=== PATIENT | female | born 1980 | race Caucasian/White ===

== ENCOUNTER 2021-05-17 08:14 | Outpatient (REF) | payer OTHER, SELFPAY ==
[2021-05-17 10:43] LABS: Hematocrit 41.8 % (37-47); Hemoglobin 13.6 g/dl (12.0-16.0); Mean Corpuscular HGB Conc 32.5 g/dl (31.0-35.0); Mean Corpuscular Volume 86.2 fL (80-98); Mean Platelet Volume 11.1 fL (9.4-12.3); Platelet Count 304 X10*3/uL (160-400); Red Blood Count 4.85 X10*6/uL (4.20-5.50); Red Cell Distribution Width 13.3 % (11.0-16.0); White Blood Count 5.7 X10*3/uL (4.8-10.8)
[2021-05-17 10:50] LABS: Appearance Urine CLEAR; Color Urine YELLOW; Glucose Urine UA NEG (NEG); Leukocyte Esterase Urine NEG (NEG); Nitrite Urine NEG (NEG); Specific Gravity - Urine 1.015 (1.005-1.025); Urine Blood 1+ (NEG); Urine Ketones NEG (NEG); Urine Protein NEG (NEG-TRACE)
[2021-05-17 11:00] LABS: Bacteria Urine 2+ /LPF; Squamous Epithelial Cell Urine 3+ /LPF; Urine Talc Crystals TRACE /LPF; WBC Urine 0-2 /HPF (0-4)
[2021-05-17 11:14] LABS: Alanine Aminotransferase 17 U/L (0-31); Albumin Level 4.3 g/dL (3.5-5.0); Alkaline Phosphatase 82 U/L (39-117); Anion Gap 13 (12-20); Aspartate Amino Transferase 24 U/L (5-31); Bilirubin Total 0.4 mg/dL (0.0-1.0); Blood Urea Nitrogen 11 mg/dL (9-16); Calcium 9.5 mg/dL (8.4-10.2); Carbon Dioxide 28 mmol/L (22-29); Chloride 103 mmol/L (96-108); Cholesterol 240 mg/dL; Estimated Glomerular Filt Rate > 60; Glucose Fasting 86 mg/dL (60-99); HDL Cholesterol 78 mg/dL; LDL Cholesterol Calculated 152 mg/dl; Potassium 4.8 mmol/L (3.3-5.1); Sodium 139 mmol/L (135-145); Total Protein 7.5 g/dL (6.5-8.0); Triglycerides 52 mg/dL
[2021-05-17 11:28] LABS: Vitamin D 25-OH Total 29.5 ng/mL (>30)
== END 2021-05-17 08:15 | disposition home or self-care (01) ==
LOC: HO.10HDL 08:14
PROVIDERS: Visit Provider Internal Medicine
DX: Z13.89 Encounter for screening for other disorder (principal)
CPT/HCPCS: 36415; 80053; 80061; 81001; 82306; 85027

== ENCOUNTER 2021-05-29 07:24 | Outpatient (REF) | payer OTHER, SELFPAY ==
--- NOTE | ~2021-05-29 | MR_ITS ---
EXAMINATION: MR ANGIOGRAPHY HEAD CLINICAL INFORMATION: Cerebral aneurysm. Follow-up COMPARISON: MRA of the head 05/04/2015. CTA of the head 11/24/2009. TECHNIQUE: 3D time of flight MR angiography of the intracranial vasculature was obtained. Reformatted images were generated at the technologist workstation and source images were reviewed along with rotating MIPs. FINDINGS: In the anterior circulation, the distal internal carotid arteries within the neck appear normal. The study redemonstrates a 2.5 mm aneurysm off the medial aspect of the left anterior cerebral artery at the A1/A2 junction. The other intracranial internal carotid arteries and their bifurcations appear normal. The bilateral middle and right anterior cerebral arteries demonstrate normal caliber with no evidence of focal stenosis, aneurysm or vascular malformation. In the posterior circulation, the right vertebral artery is dominant. The vertebral arteries intradurally have normal caliber. The basilar artery appears normal. The posterior cerebral arteries have normal caliber. MR/MR angio head wo con IMPRESSION: 1. Stable 2.5 mm aneurysm off the medial aspect of the left anterior cerebral artery. No new aneurysms are demonstrated.
== END 2021-05-29 07:25 | disposition home or self-care (01) ==
LOC: HO.MRI 07:24
PROVIDERS: PCP Internal Medicine; Visit Provider Internal Medicine
DX: I67.1 Cerebral aneurysm, nonruptured (principal)
CPT/HCPCS: 70544

== ENCOUNTER 2021-12-19 07:31 | Outpatient (REF) | payer OTHER, SELFPAY ==
[2021-12-19 08:04] LABS: COVID-19 Test Negative (Negative)
== END 2021-12-19 07:32 | disposition home or self-care (01) ==
LOC: HO.LAB 07:31
PROVIDERS: Visit Provider Internal Medicine
DX: Z20.822 Contact with and (suspected) exposure to COVID-19 (principal)
CPT/HCPCS: 87635; C9803

== ENCOUNTER 2022-01-11 10:36 | Outpatient (REF) | payer OTHER, SELFPAY ==
[2022-01-11 11:07] LABS: COVID-19 Test Negative (Negative)
== END 2022-01-11 10:37 | disposition home or self-care (01) ==
LOC: HO.LAB 10:36
PROVIDERS: Visit Provider Internal Medicine
DX: Z20.822 Contact with and (suspected) exposure to COVID-19 (principal)
CPT/HCPCS: 87635; C9803

== ENCOUNTER 2022-01-22 07:33 | Outpatient (REF) | payer OTHER, SELFPAY ==
[2022-01-22 08:06] LABS: COVID-19 Test Negative (Negative); IDNOW Serial# 08D9AD1C
== END 2022-01-22 07:34 | disposition home or self-care (01) ==
LOC: HO.LAB 07:33
PROVIDERS: Visit Provider Internal Medicine
DX: Z20.822 Contact with and (suspected) exposure to COVID-19 (principal)
CPT/HCPCS: 87635; C9803

== ENCOUNTER 2022-04-13 07:25 | Outpatient (REF) | payer OTHER, SELFPAY ==
[2022-04-13 07:54] LABS: COVID-19 Test Negative (Negative)
== END 2022-04-13 07:26 | disposition home or self-care (01) ==
LOC: HO.LAB 07:25
PROVIDERS: Visit Provider Internal Medicine
DX: Z20.822 Contact with and (suspected) exposure to COVID-19 (principal)
CPT/HCPCS: 87635; C9803

== ENCOUNTER 2022-05-29 08:34 | Outpatient (REF) | payer OTHER, SELFPAY ==
[2022-05-29 10:49] LABS: MANUAL DIFF FLAG NO
[2022-05-29 10:54] LABS: Basophils Absolute Auto 0.1 X10*3/uL (0.0-0.2); Basophils Percent Auto 1.3 % (0-2); Eosinophils Absolute Auto 0.2 X10*3/uL (0.0-0.4); Eosinophils Percent Auto 3.4 % (0-4); Hematocrit 40.7 % (37.0-47.0); Hemoglobin 13.1 g/dl (12.0-16.0); Imm Gran Abs Auto 0.01 X10*3/uL (0.00-0.03); Imm Gran Pct Auto 0.2 % (0.0-0.4); Lymphocytes Absolute Auto 2.6 X10*3/uL (1.2-4.9); Lymphocytes Percent Auto 48.5 % (20-40); Mean Corpuscular HGB Conc 32.2 g/dl (31.0-35.0); Mean Corpuscular Hemoglobin 28.1 pg (27.0-33.0); Mean Corpuscular Volume 87.2 fL (80.0-98.0); Mean Platelet Volume 9.9 fL (9.4-12.3); Monocytes Absolute Auto 0.4 X10*3/uL (0.1-1.2); Monocytes Percent Auto 7.5 % (2-11); Neutrophils Absolute Auto 2.1 x10*3/uL (2.0-8.3); Neutrophils Percent Auto 39.1 % (45-73); Platelet Count 304 X10*3/uL (160-400); Red Blood Count 4.67 X10*6/uL (4.20-5.50); Red Cell Distribution Width 13.1 % (11.0-16.0); White Blood Count 5.3 X10*3/uL (4.8-10.8)
[2022-05-29 11:09] LABS: Alanine Aminotransferase 26 U/L (0-31); Albumin Level 4.3 g/dL (3.5-5.0); Alkaline Phosphatase 77 U/L (39-117); Anion Gap 15 (12-20); Aspartate Amino Transferase 33 U/L (5-31); Bilirubin Total 0.5 mg/dL (0.0-1.0); Blood Urea Nitrogen 9 mg/dL (9-16); Carbon Dioxide 27 mmol/L (22-29); Chloride 100 mmol/L (96-108); Cholesterol 188 mg/dL; Estimated Glomerular Filt Rate > 60; Glucose Fasting 90 mg/dL (60-99); HDL Cholesterol 78 mg/dL; LDL Cholesterol Calculated 103 mg/dl; Potassium 4.9 mmol/L (3.3-5.1); Sodium 137 mmol/L (135-145); Total Protein 7.4 g/dL (6.5-8.0); Triglycerides 38 mg/dL
[2022-05-29 11:29] LABS: Free T4 (Free Thyroxine) 0.97 ng/dL (0.71-1.85); Thyroid Stimulating Hormone 2.07 uIU/mL (0.32-4.0)
== END 2022-05-29 08:35 | disposition home or self-care (01) ==
LOC: HO.10HDL 08:34
PROVIDERS: Visit Provider Internal Medicine
DX: Z00.00 Encounter for general adult medical examination without abnormal findings (principal)
CPT/HCPCS: 36415; 80053; 80061; 83735; 84439; 84443; 85025

== ENCOUNTER → 2022-05-30 09:35 | Outpatient (REF) | payer OTHER, SELFPAY ==
--- NOTE | 2022-05-30 09:32 | CA_ITS ---
Transthoracic Echocardiogram Patient (Last, First, Middle): Alanna Johns, Gender: Female Date of : 1980 Age: 42 Procedure Date: 05/30/2022 Procedure Type: Transthoracic Echocardiogram Location: OP Height: 162.56 cm Weight: 63.5 kg BSA: 1.68 m2 Heart Rate: 75 bpm BP: 130 / 80 mmHg Marine Electrician Helper: SUNITHA Referring MD: Braydon Cortes MD Vp Compliance: Jacob Balderrama MD Symptoms: PALPITATIONS Study Quality: Fair ECG Rhythm: Sinus Conclusions: - 1. Normal LV systolic and diastolic function 2. Normal cardiac valvular Doppler next 3. Normal RV systolic pressure 4. No pericardial effusion Findings Left Ventricle Normal left ventricular size, thickness, and systolic function. The visually estimated ejection fraction is between 55-60%. Spectral Doppler is indicative of a normal filling pattern. Right Ventricle Normal right ventricular cavity size and systolic function. Atria The left atrium is normal in size. Interatrial shunt cannot be excluded. The right atrium is normal in size. Aortic Valve The aortic valve structure and function is likely normal. There is no aortic valve stenosis. There is no aortic valve regurgitation. Mitral Valve Normal mitral valve structure and function. There is trace mitral valve regurgitation. There is no mitral valve stenosis. Pulmonic Valve The pulmonic valve was not well visualized. Tricuspid Valve Likely normal tricuspid valve structure and function. There is trace tricuspid valve regurgitation. The right ventricular systolic pressure is normal. The right ventricular systolic pressure is 13 mmHg. Normal right atrial pressure. There is no evidence of pulmonary hypertension. Great Vessels All visible segments of the aorta are normal in size. The pulmonary artery was not well visualized. Venous The inferior vena cava is normal in size and collapses greater than 50% with inspiration. Pericardium/Pleural There is no evidence of pericardial effusion. Prior Study Comparison No prior study available for comparison. Measurements 2D Linear Measurements IVSd: 0.97 0.6-0.9/0.6-1.0 cm LVIDd: 4.10 3.9-5.3/4.2-5.9 cm LVIDd Index: 2.44 2.4-3.2/2.2-3.1 cm/m2 LVIDs: 2.91 2.0-3.6 cm LVPWd: 1.07 0.7-1.1 cm LA Diam: 3.10 2.7-3.8/3.0-4.0 cm LAIDs Index: 1.85 1.5-2.3 cm/m2 LV Mass: 169.06 67-162/88-224 g LV Mass Index: 100.63 43-95/49-115 g/m2 LVOT Diam: 2.10 3.0+(-)1.3 cm 2D Systolic Function EF 4C: 53.20 >55% EF 2C: 52.70 >55% Mitral Valve MV Pk E: 0.79 MV PK A: 0.70 MV Decel Time: 245.00 E/A: 1.10 E'Lateral: 9.25 E'Medial: 6.64 E/E' Med: 11.80 E/E' Lat: 8.50 PHT: 72.00 MVA PHT: 3.06 Decel [place]: 3.20 Aortic Valve AoV Pk Jamel: 1.19 AoV Mn Jamel: 0.86 AoV VTI: 0.25 AoV Pk Grad: 6.00 Aov Mn Grad: 3.00 ELOISE Cont.VTI: 2.48 LVOT LVOT Pk Jamel: 0.79 LVOT Mn Jamel: 0.58 LVOT VTI: 0.18 LVOT Pk Grad: 3.00 LVOT Mn Grad: 2.00 LVOT Diam: 2.10 LVOT Area: 3.46 Diastolic Function MV Pk E: 0.79 MV Pk A: 0.70 E/A: 1.10 E'Medial: 6.64 E/E' Med: 11.80 E' Laterial: 9.25 E/E' Lat: 8.50 Right Ventricle TAPSE (mm): 18.40 TVS' Jamel: 12.60 Tricuspid Valve TR Pk Jamel: 1.57 TR Pk Grad: 10.00 RA Press: 3.00 RVSP: 13.00 Great Vessels Aorta Sinus of Valsalva: 2.70 2.0-3.5 cm Ao Asc: 2.80 2.1-3.4 cm Pulmonary Valve PV Pk Jamel: 0.88 Peak PV Grad: 3.00 Updated in Other Vendor System with Status of Final Jacob Balderrama MD electronically signed on 05/30/2022 12:18:52 PM with status of Final
--- NOTE | 2022-05-30 09:34 | HM_ITS ---
* Total monitoring time 3 days. * Underlying rhythm is sinus. Average rate 82/Min. Range 52 to 126/Min. * Very rare PVCs and PACs. * No sustained arrhythmias. * No patient diary. MTDD
== END ==
LOC: HO.CARD 09:35
PROVIDERS: PCP Internal Medicine; Visit Provider Internal Medicine
DX: R00.2 Palpitations (principal)
CPT/HCPCS: 93242; 93306

== ENCOUNTER 2022-06-15 07:50 | Outpatient (REF) | payer OTHER, SELFPAY ==
[2022-06-15 08:32] LABS: COVID-19 Test Negative (Negative)
== END 2022-06-15 07:51 | disposition home or self-care (01) ==
LOC: HO.LAB 07:50
PROVIDERS: Visit Provider Internal Medicine
DX: Z20.822 Contact with and (suspected) exposure to COVID-19 (principal)
CPT/HCPCS: 87635; C9803

== ENCOUNTER 2022-06-22 08:05 | Outpatient (REF) | payer OTHER, SELFPAY ==
[2022-06-25 21:32] LABS: Thyroid Peroxidase Antibodies 1 IU/mL (<9)
== END 2022-06-22 08:06 | disposition home or self-care (01) ==
LOC: HO.10HDL 08:05
PROVIDERS: Visit Provider Family Medicine
DX: R00.2 Palpitations (principal)
CPT/HCPCS: 36415; 86140; 86376

== ENCOUNTER → 2022-06-26 07:53 | Outpatient (REF) | payer OTHER, SELFPAY ==
--- NOTE | 2022-06-26 07:57 | CA_ITS ---
Acquisition Time: 2022-06-26 08:09:41 Total Exercise Time: 00:10:01 Test Indications: Palpitations Medications: ATORVASTATIN Protocol: NICHO Max HR: 155 BPM 87% of Pred: 177 BPM Max BP: 144/082 mmHG Max Work Load: 11.7 METS PT EXERCISEED ON STD NICHO PROTOCOL FOR 10 MIN INTO STAGE 4. MAX HR 155-87%MAX. OCC PVC'S. NO ISCHEMIC CHANGES. NO C/O CP OR SOB. OCC PALP FELT. NO SUSTAINED ARRHYTHMIAS. CLINICALLYAND ELEC NEG TEST Referred By: Braydon Shaw Overread By: BERTA SHAW MD
== END ==
LOC: HO.CARD 07:53
PROVIDERS: Visit Provider Internal Medicine
DX: R00.2 Palpitations (principal)
CPT/HCPCS: 93017

== ENCOUNTER 2022-09-06 07:50 | Outpatient (REF) | payer OTHER, SELFPAY ==
[2022-09-06 08:25] LABS: COVID-19 Test Negative (Negative); IDNOW Serial# 16C4AD1C
== END 2022-09-06 07:51 | disposition home or self-care (01) ==
LOC: HO.LAB 07:50
PROVIDERS: Visit Provider Internal Medicine
DX: Z20.822 Contact with and (suspected) exposure to COVID-19 (principal)
CPT/HCPCS: 87635; C9803

== ENCOUNTER 2022-09-13 07:29 | Outpatient (REF) | payer OTHER, SELFPAY ==
[2022-09-13 08:18] LABS: COVID-19 Test Negative (Negative); IDNOW Serial# 9DB6401D
== END 2022-09-13 07:30 | disposition home or self-care (01) ==
LOC: HO.LAB 07:29
PROVIDERS: Visit Provider Internal Medicine
DX: Z20.822 Contact with and (suspected) exposure to COVID-19 (principal)
CPT/HCPCS: 87635; C9803

== ENCOUNTER 2022-09-17 07:31 | Outpatient (REF) | payer OTHER, SELFPAY ==
[2022-09-17 08:12] LABS: COVID-19 Test Negative (Negative); IDNOW Serial# 16C4AD1C
== END 2022-09-17 07:32 | disposition home or self-care (01) ==
LOC: HO.LAB 07:31
PROVIDERS: Visit Provider Internal Medicine
DX: Z20.822 Contact with and (suspected) exposure to COVID-19 (principal)
CPT/HCPCS: 87635; C9803

== ENCOUNTER 2022-10-04 08:14 | Outpatient (REF) | payer OTHER, SELFPAY ==
[2022-10-04 09:05] LABS: COVID-19 Test Negative (Negative); IDNOW Serial# BCCEAD1C
== END 2022-10-04 08:15 | disposition home or self-care (01) ==
LOC: HO.LAB 08:14
PROVIDERS: Visit Provider Internal Medicine
DX: Z20.822 Contact with and (suspected) exposure to COVID-19 (principal)
CPT/HCPCS: 87635; C9803

== ENCOUNTER 2022-10-19 07:51 | Outpatient (REF) | payer OTHER, SELFPAY ==
[2022-10-19 08:26] LABS: COVID-19 Test Negative (Negative); IDNOW Serial# 16C4AD1C
== END 2022-10-19 07:52 | disposition home or self-care (01) ==
LOC: HO.LAB 07:51
PROVIDERS: Visit Provider Internal Medicine
DX: Z20.822 Contact with and (suspected) exposure to COVID-19 (principal)
CPT/HCPCS: 87635; C9803

== ENCOUNTER 2023-01-11 07:09 | Day surgery (SDC) | payer OTHER, SELFPAY ==
--- NOTE | 2023-01-10 09:36 | HO.ANESPROP2 ---
Documented by User: Tri Barbosa NP 01/10/23 10:05 HPI - Anesthesia Eval Consult details Narrative: 42yo F for Colonoscopy [facility] Past Medical History Medical History (Updated 01/10/23 @ 09:37 by Tri Barbosa NP) Anxiety Cerebral aneurysm GERD (gastroesophageal reflux disease) HLD (hyperlipidemia) Insomnia Palpitations Surgical History Surgical History (Updated 01/10/23 @ 09:37 by Tri Barbosa NP) H/O adenoidectomy (~1981) Social History Social History Advance Directives: No Advance Directives Information Provided: Yes Meds Allergies Allergy/AdvReac Type Severity Reaction Status Date / Time kiwi Allergy Unknown Unknown Verified 01/10/23 09:38 pineapple Allergy Unknown Unknown Verified 01/10/23 09:38 Home Medications Medication Instructions Recorded Confirmed Last Taken Type atorvastatin 10 mg tablet 10 mg PO BEDTIME 01/10/23 Unknown History Exam Exam Date and Time: January 10, 2023 0936 Narrative Narrative: ECHO 05/2022 Conclusions: - 1.? Normal LV systolic and diastolic function? 2.? Normal cardiac valvular Doppler next 3.? Normal RV systolic? pressure ? 4.? No pericardial effusion? Exercise Stress 06/2022 Protocol: NICHO ? Max HR: 155 BPM? 87% of? Pred: 177 BPM Max BP: 144/082 mmHG Max Work Load: 11.7 METS ? PT EXERCISEED ON STD NICHO PROTOCOL FOR 10 MIN INTO STAGE 4. MAX HR 155-87%MAX. ?OCC PVC'S. NO ISCHEMIC CHANGES. NO C/O CP OR SOB. OCC PALP FELT. NO SUSTAINED ?ARRHYTHMIAS. CLINICALLYAND ELEC NEG TEST Holter 05/2022 Total monitoring time 3 days. Underlying rhythm is sinus.? Average rate 82/Min.? Range 52 to 126/Min. Very rare PVCs and PACs. No sustained arrhythmias. No patient diary. Assessment and Plan Assessment Anesthesia Assessment: Chart Reviewed Documented by User: Ted Rivas MD 01/11/23 07:38 [facility] Past Medical History Medical History (Updated 01/10/23 @ 09:37 by Tri Barbosa NP) Anxiety Cerebral aneurysm GERD (gastroesophageal reflux disease) HLD (hyperlipidemia) Insomnia Palpitations Family History Family history of problems with anesthesia: No Surgical History Surgical History (Updated 01/10/23 @ 09:37 by Tri Barbosa NP) H/O adenoidectomy (~1981) History of Problems with Anesthesia: No Social History Social History Advance Directives: No Advance Directives Information Provided: Yes Meds Allergies Allergy/AdvReac Type Severity Reaction Status Date / Time kiwi Allergy Unknown Unknown Verified 01/10/23 09:38 pineapple Allergy Unknown Unknown Verified 01/10/23 09:38 Home Medications Medication Instructions Recorded Confirmed Last Taken Type atorvastatin 10 mg tablet 10 mg PO BEDTIME 01/10/23 Unknown History Exam Airway Mallampati Class: II TM Dist: >3cm Neck ROM: Full Heart: rrr Assessment and Plan Assessment Anesthesia Assessment: Anesthesia Plan Discussed Final Anesthetic Review Family History of Problems with Anesthesia: No History of Problems with Anesthesia: No NPO: Yes ASA Class: II Final Preanesthetic Review: No Changes in Pt Med Stat, Meds/Allgs Chart Reviewed, Consent Obtained/Reviewed and Anes Risks/Benef Reviewed Patient Risk: Low Procedure Risk: Low Anesthetic Plan Anesthetic Plan: MAC: and Agree w/ Assess. and Plan Disposition: Standard PACU
[2023-01-11 07:42] VITALS: BP 140/81; PULSE 100; RESP 18; TEMP 37.1; O2SAT 100; BMI 24.9
--- NOTE | 2023-01-11 08:19 | MHC.SHP ---
Pre-Procedural Eval Section A Date of Service: 01/11/23 Section B Chief Complaint: Hemorrhage of anus and rectum Details of Present Illness: see H&P Relevant Family History (Specify if Yes): No Relevant Social History: None Present Medications: see Short Stay Collaborative assessment Medical History: No relevant PMH History of Previous Operations: No relevant previous surgery Allergies: Allergies Allergy/AdvReac Type Severity Reaction Status Date / Time kiwi Allergy Unknown Unknown Verified 01/10/23 09:38 pineapple Allergy Unknown Unknown Verified 01/10/23 09:38 Review of Systems Sugical H&P ROS: Negative: Constitution, Cardiovascular, Respiratory, Neurological, Psychiatric, Hem-Onc, Allergic/Immunologic, Gastrointestinal, Genitourinary, Musculoskeletal, Integumentary, Endocrine and Eyes/Ears/Nose/Throat Exam Surgical H&P Exam: Normal: HEENT, Normal: Heart, Normal: Lungs, Normal: Extremities, Normal: Abdomen, Normal: Skin and Normal: Neurological Plan Diagnosis/Plan: Unchanged I have reviewed the history and physical and performed a pertinent physical examination on my patient. No changes have occurred unless specified. Time Spent With Patient Time: Total time managing care of this patient today ____ minutes.
[2023-01-11 08:34] LABS: UPreg QC Valid YES; Urine Pregnancy NEGATIVE (NEGATIVE)
[2023-01-11 08:50] VITALS: BP 118/75; PULSE 81; RESP 16; TEMP 36.7; O2SAT 99
--- NOTE | 2023-01-11 08:56 | P.BOP_ITS ---
Brief Operative Note Date of Service: 01/11/23 Pre-op diagnosis: rectal bleeding Post-op diagnosis: same Procedure: colonoscopy Surgeon: Denton Juan Anesthesia: MAC Was an Watch Repair Person used for this Procedure?: No Estimated blood loss (mL): 0 Pathology: none sent Condition: stable Disposition: PACU
[2023-01-11 09:05] VITALS: BP 130/76; PULSE 78; RESP 18; TEMP 36.4; O2SAT 100
--- NOTE | 2023-01-11 09:40 | OP_ITS ---
DATE OF SERVICE: 01/11/2023 SURGEON: Denton Juan MD INDICATIONS: Rectal bleeding. PREOPERATIVE DIAGNOSIS: POSTOPERATIVE DIAGNOSIS: PROCEDURE PERFORMED: Colonoscopy to the terminal ileum. ESTIMATED BLOOD LOSS: COMPLICATIONS: ANESTHESIA: Monitored anesthesia care. ASSISTANTS: SPECIMENS: DESCRIPTION OF PROCEDURE: The history and physical was performed. The risks and benefits of the procedure were explained to the patient. Informed consent was obtained. The patient was placed in the left lateral decubitus position. A digital rectal exam was performed and was found to be normal. The Olympus pediatric video colonoscope was introduced into the rectum and advanced to the cecum without difficulty. The cecum was identified by transillumination, palpation, and identification of ileocecal valve. Examination was performed. The scope was removed. She tolerated the procedure well and was returned to the recovery area in stable condition. FINDINGS: The terminal ileum was normal. Visualized colonic mucosa was normal. The quality of the prep was good. There were no polyps. There were small internal hemorrhoids on retroflexed examination. The mucosa appeared normal. IMPRESSION: Normal colonoscopy. RECOMMENDATION: 1. Follow up as needed. 2. Repeat colonoscopy for screening purposes is recommended in 10 years for average risk individuals. MD KALEY Orta/DENEEN / [phone]
== END 2023-01-11 09:30 | disposition home or self-care (01) ==
PROVIDERS: Nurse Practitioner; PCP Internal Medicine; Visit Provider Internal Medicine Gastroenterology
PROC: 0DJD8ZZ Inspection of Lower Intestinal Tract, Via Natural or Artificial Opening Endoscopic (ICD-10-PCS; CPT 45378; principal; 2023-01-11 08:20)
DX: K62.5 Hemorrhage of anus and rectum (principal)
CPT/HCPCS: 45378; 81025

== ENCOUNTER 2023-04-12 11:36 | Outpatient (REF) | payer OTHER, SELFPAY ==
--- NOTE | ~2023-04-12 | XR_ITS ---
EXAMINATION: XR HIP, RIGHT CLINICAL INFORMATION: Right hip pain COMPARISON: None available. TECHNIQUE: Two views of the right hip. FINDINGS: No fracture. Alignment is anatomic. Hip joint space is maintained. Soft tissues are unremarkable. XR/XR hip RT w PEL1V IMPRESSION: Normal right hip.
== END 2023-04-12 11:37 | disposition home or self-care (01) ==
LOC: HO.XRAY 11:36
PROVIDERS: PCP Internal Medicine; Visit Provider Internal Medicine
DX: M53.3 Sacrococcygeal disorders, not elsewhere classified (principal)
CPT/HCPCS: 73502

== ENCOUNTER 2024-02-13 07:43 | Outpatient (REF) | payer OTHER, SELFPAY ==
[2024-02-14 13:09] LABS: Lyme Abs Screen <0.90 index
== END 2024-02-13 07:44 | disposition home or self-care (01) ==
LOC: HO.10HDL 07:43
PROVIDERS: Visit Provider Internal Medicine
DX: T14.8XXA Other injury of unspecified body region, initial encounter (principal); W57.XXXA Bitten or stung by nonvenomous insect and other nonvenomous arthropods, initial encounter
CPT/HCPCS: 36415; 86617; 86618

== ENCOUNTER 2024-02-21 07:52 | Outpatient (REF) | payer OTHER, SELFPAY ==
[2024-02-21 10:46] LABS: MANUAL DIFF FLAG NO
[2024-02-21 10:51] LABS: Basophils Percent Auto 0.6 % (0-2); Eosinophils Absolute Auto 0.2 X10*3/uL (0.0-0.4); Eosinophils Percent Auto 2.6 % (0-4); Hematocrit 40.7 % (37.0-47.0); Hemoglobin 13.3 g/dl (12.0-16.0); Imm Gran Abs Auto 0.02 X10*3/uL (0.00-0.03); Imm Gran Pct Auto 0.3 % (0.0-0.4); Lymphocytes Absolute Auto 2.4 X10*3/uL (1.2-4.9); Lymphocytes Percent Auto 34.8 % (20-40); Mean Corpuscular HGB Conc 32.7 g/dl (31.0-35.0); Mean Corpuscular Hemoglobin 28.4 pg (27.0-33.0); Mean Platelet Volume 10.4 fL (9.4-12.3); Monocytes Absolute Auto 0.5 X10*3/uL (0.1-1.2); Monocytes Percent Auto 7.1 % (2-11); Neutrophils Absolute Auto 3.8 x10*3/uL (2.0-8.3); Neutrophils Percent Auto 54.6 % (45-73); Platelet Count 232 X10*3/uL (160-400); Red Blood Count 4.68 X10*6/uL (4.20-5.50); Red Cell Distribution Width 13.1 % (11.0-16.0)
[2024-02-21 11:19] LABS: Alanine Aminotransferase 21 U/L (0-31); Albumin Level 4.1 g/dL (3.5-5.0); Alkaline Phosphatase 72 U/L (39-117); Anion Gap 11 (12-20); Aspartate Amino Transferase 29 U/L (5-31); Bilirubin Total 0.4 mg/dL (0.0-1.0); Blood Urea Nitrogen 10 mg/dL (9-16); Calcium 9.2 mg/dL (8.4-10.2); Carbon Dioxide 30 mmol/L (22-29); Chloride 101 mmol/L (96-108); Cholesterol 170 mg/dL (<200); Estimated Glomerular Filt Rate > 60; Glucose Fasting 100 mg/dL (60-99); HDL Cholesterol 74 mg/dL (>40); LDL Cholesterol Calculated 86 mg/dL (<100); Potassium 4.7 mmol/L (3.3-5.1); Sodium 137 mmol/L (135-145); Total Protein 7.5 g/dL (6.5-8.0); Triglycerides 51 mg/dL (<150)
[2024-02-21 11:22] LABS: Vitamin D 25-OH Total 51.4 ng/mL (>30)
== END 2024-02-21 07:53 | disposition home or self-care (01) ==
LOC: HO.10HDL 07:52
PROVIDERS: Visit Provider Internal Medicine
DX: E78.00 Pure hypercholesterolemia, unspecified (principal); J31.0 Chronic rhinitis; M72.2 Plantar fascial fibromatosis
CPT/HCPCS: 36415; 80053; 80061; 82306; 85025

== ENCOUNTER 2024-06-02 09:09 | Outpatient (REF) | payer BC, SELFPAY ==
[2024-06-02 11:33] LABS: Alanine Aminotransferase 24 U/L (0-31); Albumin Level 4.4 g/dL (3.5-5.0); Alkaline Phosphatase 81 U/L (39-117); Aspartate Amino Transferase 29 U/L (5-31); Bilirubin Direct 0.1 mg/dL (0.0-0.5); Bilirubin Total 0.4 mg/dL (0.0-1.0); Total Protein 7.9 g/dL (6.5-8.0)
[2024-06-02 11:52] LABS: TSH reflex Free T4 1.31 uIU/mL (0.32-4.0)
[2024-06-03 14:23] LABS: Prolactin 4.2 ng/mL
== END 2024-06-02 09:10 | disposition home or self-care (01) ==
LOC: HO.10HDL 09:09
PROVIDERS: Visit Provider Nurse Practitioner Adult Health
DX: N92.6 Irregular menstruation, unspecified (principal); Z78.0 Asymptomatic menopausal state
CPT/HCPCS: 36415; 80076; 84146; 84443

== ENCOUNTER 2024-06-26 11:19 | Outpatient (REF) | payer BC, SELFPAY ==
[2024-06-26 13:39] LABS: Alanine Aminotransferase 24 U/L (0-31); Albumin Level 4.2 g/dL (3.5-5.0); Alkaline Phosphatase 64 U/L (39-117); Aspartate Amino Transferase 31 U/L (5-31); Bilirubin Direct 0.2 mg/dL (0.0-0.5); Bilirubin Total 0.4 mg/dL (0.0-1.0); Total Protein 7.4 g/dL (6.5-8.0)
== END 2024-06-26 11:20 | disposition home or self-care (01) ==
LOC: HO.10HDL 11:19
PROVIDERS: Visit Provider Nurse Practitioner Adult Health
DX: N95.1 Menopausal and female climacteric states (principal)
CPT/HCPCS: 36415; 80076

== ENCOUNTER 2024-08-06 08:20 | Outpatient (REF) | payer BC, SELFPAY ==
[2024-08-06 11:57] LABS: Alanine Aminotransferase 26 U/L (0-31); Albumin Level 4.3 g/dL (3.5-5.0); Alkaline Phosphatase 77 U/L (39-117); Aspartate Amino Transferase 33 U/L (5-31); Bilirubin Direct 0.2 mg/dL (0.0-0.5); Bilirubin Total 0.3 mg/dL (0.0-1.0); Total Protein 7.7 g/dL (6.5-8.0)
--- OUTSIDE RECORDS SUMMARY | 2024-08-11 23:55 | XMS_ITS | Continuity of Care Document ---
Author Organization [place] - [facility], [facility] Address [address] [place] [address] Care Team Providers Care Digital Manager Name Role Phone JUDY SHAW Primary Care Provider Assessment No assessment recorded. Plan of Treatment Reminders Order Date Submit Date Provider Last Modified By Organization Details Last Modified Time Details Appointments Hearing Test 2023 10:00A M Hearing Test Not available Not available Not available Establish ed 30 2023 10:30A M ALLEN FOSTER PA-C Not available Not available Not available Lab None recorded. Referral None recorded. Procedures None recorded. Surgeries nasophary ngoscopy, surgical, with dilation of eustachia n tube; bilateral (SURG) 2023 024 [email or web address] Not available 05/12/2024 13:20:19 Imaging None recorded. Medication Orders None recorded. Patient TargetsNo targets recorded. Patient InstructionsNo instructions recorded. Reason for Referral None Reported. Results Created Date Observation Date Name Description Value Unit Range Abnormal Flag Note LastModifiedBy Organization Detail LastModifiedTime 05/12/20 24 01/30/2024 audio gram No observ ation record ed. BARCODE Not Available 2023 08:37:48 Result Notes None recorded. Problems Name Problem SNOMED Code Status Onset Date Resolution Date Notes Provider Name and Address Organization Details Recorded Time Bilateral disorder of Eustachia n tubes 28001202773 63845 Active 2023 Other specified disorders of Eustachia n tube, bilateral ; Note: Date Diagnosed : 01/30/2024 4:52 PM (H69.83) Not Available [facility] 02:33:14 Conductiv e hearing loss 11733598 Active 2023 Conductiv e hearing loss, unilatera l, right ear, with unrestric bruna hearing on the contralat eral side; Note: Date Diagnosed : 01/30/2024 4:52 PM (H90.11) Not Available Pending sale to [facility] 4 02:33:20 Dysfuncti on of eustachia n tube 09667217 Active 2023 CARINA PANDA MD [address] [facility],[place] [address], [place], [address] , [facility] - [facility] 12:15:44 Conductiv e hearing loss 57950727 Active 2023 CARINA PANDA MD [address] [place] [address],[place] [address], [place], [address] , [facility] - [facility] 12:27:10 Problem Notes None recorded. Procedures Surgical History Date Name Laterality Status Provider Name and Address Organization Details Recorded Time 024 NASOPHARYNGOSCOPY, SURGICAL, WITH DILATION OF EUSTACHIAN TUBE; BILATERAL (SURG) completed Philip Killian [place] - [facility] 07/03/2024 10:31:55 024 Fiberoptic Nasopharyngoscopy completed CARINA PANDA MD [address] [place] [address],[place] [address], [place], [address], [facility] - [facility] 05/12/2024 12:27:25 Imaging Results None recorded. Procedure Notes None recorded. Medical Equipment None Reported. Allergies Allergen ID Allergen Name Allergen Category Reaction Reaction Severity Criticality Documentation Date Start Date Code Code System Note Provider Name and Address Organization Details Recorded Time 595333 kiwi fruit extract food other Not available Not available 04/03/2024 72674 01 RxNorm React ion: Unkno wn; Not Available Pending sale to [facility] 4 00:29:13 846605 pineapple allergeni c extract food,medi cation other Not available Not available 04/03/2024 37891 5 RxNorm React ion: Unkno wn; Not Available Pending sale to [facility] 4 00:29:15 Medications Name Sig Start Date Stop Date Status Note LastModified by Organization Details LastModified Time doxycycline hyclate 100 mg capsule TAKE 1 CAPSULE BY MOUTH TWICE A DAY 05/12 completed Not Available Not Available Not Available atorvastati n 10 mg tablet TAKE 1 TABLET BY MOUTH EVERY DAY AT NIGHT active Not Available Not Available No t Available valacyclovi r 1 gram tablet TAKE 1 TABLET BY MOUTH THREE TIMES A DAY 05/12 completed Not Available Not Available Not Available ofloxacin 0.3 % ear drops INSTILL 4 DROPS TWICE A DAY IN AFFECTED EAR(S) FOR 3 DAYS. active Not Available Not Available No t Available Patricia 30 mg tablet active Not Available Not Available Not Available Vitals Date Recorded Body height Body weight Provider Name and Address Organization Details Last Updated DateTime 05/12/2024 162.56 cm 44957.86 g Indy Butt [place] - [facility] 05/12/2024 11:46:54 Social History None recorded. Functional Status None recorded. Mental Status None recorded. Family History Nothing Reported. Medical History Condition Response High Cholesterol Y Gynecological HistoryNo gynecological history recorded. Obstetrics History GPAL:G 0 P 0 0 0 0 Past Encounters Encounter ID Performer Location Encounter Start Date Encounter Closed Date Diagnosis/Indication Diagnosis SNOMED-CT Code Diagnosis ICD10 Code [id number] CARINA PANDA MD [facility] [address] [address] 05/12/2024 11:22:11 05/12/2024 12:27:19 Dysfunction of eustachian tube 17498230 H69.93 Conductive hearing loss 17960782 H90.11 Health Concerns Section Related Observation LastModified by Organization Detai ls LastModified Time None Recorded Concern Status LastModified by Organization Details LastModified Time None Recorded Payers Encounter Date Sequence Insurance Name Policy Number Policy Davis Covered Member ID Davis Member ID Guarantor Name 05/12/2024 1 [place] ([place] [id number] Kalia Suh [id number] Alanna Johns Notes Date Note Type Note Provider Name and Address Organization Details Recorded Time 05/12/2024 text/html 44-year-old fema le evaluated by Dr. Bishnu yan in January 2024. Patient has history of eustachian tube dysfunction primarily manifested by significant pain when flying. She is also very sensitive to barometric pressure changes such as elevator rides and driving over mountains, despite use of Afrin and decongestant. Audiometric testing showed mild conductive hearing loss in the right ear with absent acoustic reflexes concerning for possible otosclerosisShe tried Flonase for 2 weeks and had ocular reaction. CARINA PANDA MD [address] [place] [address], [place], [address], [place] - [facility] 05/12/2024 12:28:43 OBGyn Episode No OBEpisode recorded.
--- OUTSIDE RECORDS SUMMARY | 2024-08-11 23:55 | XMS_ITS | Data Portability ---
Author Organization [place] - [facility], Allergy Address [address] [place] [address] Care Team Providers Care Manager Cancer Name Role Phone JUDY SHAW Primary Care [...] eustachia n tube; bilateral (SURG) 2023 024 [email or web address] Not available 05/12/2024 13:20:19 Imaging None recorded. [...] Time Bilateral disorder of Eustachia n tubes 39990442780 83444 Active 2023 Other specified disorders of Eustachia n tube, bilateral ; Note: Date Diagnosed : 01/30/2024 4:52 PM (H69.83) Not Available [facility] 02:33:14 Conductiv e hearing loss 65167826 Active 2023 Conductiv e hearing loss, unilatera l, right ear, with unrestric bruna hearing on the contralat eral side; Note: Date Diagnosed : 01/30/2024 4:52 PM (H90.11) Not Available [facility] 4 02:33:20 Dysfuncti on of eustachia n tube 11225243 Active 2023 CARINA PANDA MD [address] [facility],[place] [address], [place], [address] , [facility] - [facility] 4 12:15:44 Conductiv e hearing loss 79909474 Active 2023 CARINA PANDA MD [address] [facility],[place] [address], [facility] [place], [address] , [facility] - [facility] 4 12:27:10 Problem Notes None recorded. Procedures Surgical History Date Name Laterality Status Provider Name and Address Organization Details Recorded Time 024 NASOPHARYNGOSCOPY, SURGICAL, WITH DILATION OF EUSTACHIAN TUBE; BILATERAL (SURG) completed Philip Killian [place] - [facility] 07/03/2024 10:31:55 024 Fiberoptic Nasopharyngoscopy completed CARINA PANDA MD [address] [place] [address],[place] [address], [place], [address], [facility] 05/12/2024 12:27:25 Imaging Results Imaging Date Name Status LastModified by Organiz ation Details LastModified Time 01/30/2024 audiogram completed BARCODE Information no t available 05/12/2024 08:37:48 Procedure Notes None recorded. Medical Equipment None Reported. Allergies Allergen ID Allergen Name Allergen Category Reaction Reaction Severity Criticality Documentation Date Start Date Code Code System Note Provider Name and Address Organization Details Recorded Time 030978 kiwi fruit extract food other Not available Not available 04/03/2024 18816 01 RxNorm React ion: Unkno wn; Not Available [facility] 4 00:29:13 034720 pineapple allergeni c extract food,medi cation other Not available Not available 04/03/2024 56339 5 RxNorm React ion: Unkno wn; Not Available [facility] 00:29:15 Medications Name Sig Start Date Stop [...] Details Last Updated DateTime 05/12/2024 162.56 cm 23525.86 g Indy Butt [place] - [facility] 05/12/2024 11:46:54 Social History None recorded. Functional Status None recorded. Mental Status None recorded. Family History Nothing Reported. Medical History Condition Response High Cholesterol Y Gynecological HistoryNo gynecological history recorded. Obstetrics History GPAL:G 0 P 0 0 0 0 Past Encounters Encounter ID Performer Location Encounter Start Date Encounter Closed Date Diagnosis/Indication Diagnosis SNOMED-CT Code Diagnosis ICD10 Code [id number] CARINA PANDA MD [facility] [address] [address] 05/12/2024 11:22:11 05/12/2024 12:27:19 Dysfunction of eustachian tube 03020213 H69.93 Conductive hearing loss 71085757 H90.11 Health Concerns Section Related Observation LastModified by Organization Detai ls LastModified Time None Recorded Concern Status LastModified by Organization Details LastModified Time None Recorded Advance Directives Directive None Recorded Payers Encounter Date Sequence Insurance Name Policy Number Policy Davis Covered Member ID Davis Member ID Guarantor Name 05/12/2024 1 CLEMENTINE: AMY (PPO) [id number] Kaliasuly Hsuy [id number] Alanna Johns Notes Date Note Type Note Provider Name and Address Organization Details Recorded Time 05/12/2024 text/html 44-year-old fema le evaluated by Dr. Goetz back in January 2024. Patient has history of [...] and had ocular reaction. CARINA PANDA MD [address] [place] [address], [place], [address], [facility] - [facility] 05/12/2024 12:28:43 OBGyn Episode No OBEpisode recorded.
--- OUTSIDE RECORDS SUMMARY | 2024-08-11 23:55 | XMS_ITS ---
Author Organization [facility] Address [address] [place] [address] Care Team Providers Care Financial Service Rep Name Role Phone Braydon Cortes MD Primary Care Provider Gabino Lopez [phone] REASON FOR VISIT BUY Colig 10 Encounters Encounter Location Date Provider Diagnosis [facility] [address] [place] [address] 05/28/2024 Gabino Martins Plan Of Treatment No Information Progress Notes * ANDREAS Alanna EDOB: [birth year] (44 yo F)Acc No.[id number]:05/28/2024 Patient:?JohnsBarbaraAlanna E :1980???Age:44 Y???Sex:Female Address:[address] [place], [address] * true * Date:? Generated for Printi ng/Falylag/eTransmitting on:?08/11/2024 11:55 PM EST
--- OUTSIDE RECORDS SUMMARY | 2024-08-11 23:56 | XMS_ITS | Patient Health Record ---
Author Organization [facility] Address [address] [place] [address] Care Team Providers Care Fire Hydrant Operator Name Role Phone Braydon Cortes MD Primary Care Provider Denton Rios Jr Unavailable ALLERGIES Allergen (clinical drug ingredient) Drug/Non Drug Allergy documented on EMR Reaction Allergy Type Onset Date Status Kiwi Unknown Allergy Active pineapple (uncoded) Unknown Allergy Active REASON FOR REFERRAL No Information MEDICATIONS Medication SIG (Take, Route, Frequency, Duration) Notes Start Date End Date Status Magnesium 400 MG as directed Orally 11/05/2022 Active MiraLax (colon prep) 17 GM/SCOOP mixed with Gatorade or Crystal Light Orally begin at 5:00 p.m. the day before the procedure for 1 day 11/05/2022 Active Atorvastatin Calcium 10 MG TAKE 1 TABLET BY MOUTH EVERY DAY AT NIGHT Oral for 90 Active Co Q 10 100 MG as directed Orally 11/05/2022 Active [place]kin 3 1000 MG 1 capsule Orally Onc e a day for 30 day(s) 11/05/2022 Active Vitamin B Complex - as directed Orally 11/05/2022 Active Multi Adult Gummies - as directed Orally Active IMMUNIZATIONS Vaccine Route Administration Date Status Comme nts Influenza Unknown 06/19/2022 Administered SOCIAL HISTORY Tobacco Use: Social History Observation Description Date Details (start date - stop date) Never Smoker NA - NA Sex Assigned At : Social History Observation Description Sex Assigned At Unknown Tobacco Use/Smoking Question Answer Notes Patient is a nonsmoker Alcohol Screen Question Answer Notes Did you have a drink contain ing alcohol in the past year? Yes How often did you have a dri nk containing alcohol in the past year? Monthly or less (1 point) How many drinks did you have on a typical day when you were drinking in the past year? 1 or 2 drinks (0 point) How often did you have 6 or more drinks on one occasion in the past year? Never (0 point) Points 1 Interpretation Negative PROBLEMS Problem Type ICD Code Onset Dates Problem Status W/U Status Risk SNOMED Code Notes Problem Rectal bleeding (K62.5) Active confirmed 09359579 PLAN OF TREATMENT Future Test Test Name Order Date COLONOSCOPY 11/05/2022 Insurance Providers Payer Name Payer Address Payer Phone Subscriber Number Group Number Insured Name Patient Relationship to Insured Coverage Start Date Coverage End Date [facility] [address] [facility] [place] [phone] [id number] MORE SIDDIQUI Self - patient is the insured MEDICAL (GENERAL) HISTORY Medical History History ICD Code Small cerebral aneurysm Palpitations with negative cardiac vasquez p including echo and stress test Elevated cholesterol breast screening program Anxiety Gastroesophageal reflux disease Insomnia Surgical History Surgery Date(Month/Year) Adenoidectomy 1982 Hospitalization History Reason Date(Month/Year) Tonsillitis 2002
--- OUTSIDE RECORDS SUMMARY | 2024-08-11 23:56 | XMS_ITS | Patient Health Record ---
Author Organization [facility] Address [address] [place] [address] Care Team Providers Care Joss House Keeper Name Role Phone Braydon Cortes MD Primary Care Provider Gabino Lopez Unavailable [phone] Allergies No Known Allergies Reason For Referral No Information Medications Medication SIG (Take, Route, Frequency, Duration) Notes Start Date End Date Status Custom Orthotics as directed 04/22/2019 Not-Taking Physical Therapy . . . 2-3x/week for 3- 4 weeks 04/22/2019 Active Multivitamin Active Night Splint AFO - L1930 as directed 04/22/2019 Active B-Complex Active Immunizations Vaccine Route Administration Date Status Comme nts COVID-19 Pfizer BioNTech Vaccine Unknown 09/30/2020 Administered 09/08/2020 Social History Tobacco Use: Social History Observation Description Date Details (start date - stop date) Never Smoker NA - NA Tobacco Use/Smoking Question Answer Notes Are you a: nonsmoker Additional Findings: Tobacco Non-User Current no n-smoker Alcohol Screen Question Answer Notes Did you have a drink containing alcohol in the p ast year? Yes Points 0 Interpretation Negative Tobacco use other than smoking: Question Answer Notes Are you an other tobacco user? No Problems Problem Type SNOMED Code ICD Code Onset Dates Problem Status W/U Status Risk Notes Problem Acquired hallux valgus (44199005) Hallux valgus (acquired), left foot (M20.12) Active confirmed Problem Acquired hallux valgus (79351576) Hallux valgus (acquired), right foot (M20.11) Active confirmed Encounters Encounter Location Date Provider Diagnosis [facility] [address] [place] [address] 05/28/2024 Gabino Martins Plan Of Treatment Pending Test Test Name Order Date X ray : Foot, left 3V 04/22/2019 X ray : Foot, right 3V 04/22/2019 Insurance Providers Payer Name Payer Address Payer Phone Subscriber Number Group Number Insured Name Patient Relationship to Insured Coverage Start Date Coverage End Date [facility] [address] [place] [address] [id number] Alanna Johns Self - patient is the insured Medical (General) History Medical History History ICD Code Chicken pox Headaches/Migraines Psoriasis/eczema High Cholesterol HPV cervical dysplasia Surgical History Surgery Date(Month/Year) adenoidectomy 1982
== END 2024-08-06 08:21 | disposition home or self-care (01) ==
LOC: HO.10HDL 08:20
PROVIDERS: Visit Provider Nurse Practitioner Adult Health
DX: N95.1 Menopausal and female climacteric states (principal)
CPT/HCPCS: 36415; 80076

== ENCOUNTER 2024-08-25 12:44 | Outpatient (REF) | payer BC, SELFPAY ==
--- NOTE | ~2024-08-25 | XR_ITS ---
EXAMINATION: XR KNEE, RIGHT CLINICAL INFORMATION: INJURY HIKING, RIGHT KNEE PAIN COMPARISON: No relevant prior studies are available for comparison. TECHNIQUE: Four views of the right knee. FINDINGS: No acute fracture or dislocation. Cortical undulation along the medial most aspect of the medial tibial plateau which could represent normal variation versus sequela of remote injury. No significant joint space narrowing or marginal osteophytes. No osseous erosion. No abnormal soft tissue calcification. No knee joint effusion. XR/XR knee RT 4V IMPRESSION: 1. No acute fracture or dislocation. 2. Cortical undulation along the medial most aspect of the medial tibial plateau which could represent normal variation versus sequela of remote injury. Electronically signed by: Chandler Michaels MD 08/25/2024 01:10 PM DAVID
--- OUTSIDE RECORDS SUMMARY | 2024-08-25 12:46 | XMS_ITS | Data Portability ---
Author Organization [place] [facility], Allergy Address [address] [place] [address] Care Team Providers Care Animal Care Assistant Name Role Phone JUDY SHAW Primary Care [...] eustachia n tube; bilateral (SURG) 2023 024 Not available 05/12/2024 13:20:19 Imaging None recorded. [...] Time Bilateral disorder of Eustachia n tubes 31902268814 46054 Active 2023 Other specified disorders of Eustachia n tube, bilateral ; Note: Date Diagnosed : 01/30/2024 4:52 PM (H69.83) Not Available [facility] 02:33:14 Conductiv e hearing loss 60478467 Active 2023 Conductiv e hearing loss, unilatera l, right ear, with unrestric bruna hearing on the contralat eral side; Note: Date Diagnosed : 01/30/2024 4:52 PM (H90.11) Not Available [facility] 4 02:33:20 Dysfuncti on of eustachia n tube 47959213 Active 2023 CARINA PANDA MD [address] [facility],[place] [address], [place], [address] , [facility] - [facility] 4 12:15:44 Conductiv e hearing loss 94011516 Active 2023 CARINA PANDA MD [address] [facility],[place] [address], [facility] [place], [address] , [facility] - [facility] 4 12:27:10 Problem Notes None recorded. Procedures Surgical History Date Name Laterality Status Provider Name and Address Organization Details Recorded Time 024 NASOPHARYNGOSCOPY, SURGICAL, WITH DILATION OF EUSTACHIAN TUBE; BILATERAL (SURG) completed Philip Killian [place] - [facility] 07/03/2024 10:31:55 024 Fiberoptic Nasopharyngoscopy completed CARINA PANDA MD [address] [place] [address],[place] [address], [place], [address], [facility] 05/12/2024 12:27:25 Imaging Results Imaging Date Name Status LastModified by Organiz ation Details LastModified Time 01/30/2024 audiogram completed [facility] Information no t available 05/12/2024 08:37:48 Procedure Notes None recorded. Medical Equipment None Reported. Allergies Allergen ID Allergen Name Allergen Category Reaction Reaction Severity Criticality Documentation Date Start Date Code Code System Note Provider Name and Address Organization Details Recorded Time 911263 kiwi fruit extract food other Not available Not available 04/03/2024 41442 01 RxNorm React ion: Unkno wn; Not Available [facility] 4 00:29:13 505003 pineapple allergeni c extract food,medi cation other Not available Not available 04/03/2024 33582 5 RxNorm React ion: Unkno wn; Not Available [facility] 00:29:15 Medications Name Sig Start Date Stop [...] Details Last Updated DateTime 05/12/2024 162.56 cm 15064.86 g Indy Butt [place] - [facility] 05/12/2024 11:46:54 Social History None recorded. Functional Status None recorded. Mental Status None recorded. Family History Nothing Reported. Medical History Condition Response High Cholesterol Y Gynecological HistoryNo gynecological history recorded. Obstetrics History GPAL:G 0 P 0 0 0 0 Past Encounters Encounter ID Performer Location Encounter Start Date Encounter Closed Date Diagnosis/Indication Diagnosis SNOMED-CT Code Diagnosis ICD10 Code [id number] CARINA PANDA MD [facility] [address] [address] 05/12/2024 11:22:11 05/12/2024 12:27:19 Dysfunction of eustachian tube 75661953 H69.93 Conductive hearing loss 74120163 H90.11 Health Concerns Section Related Observation LastModified by Organization Detai ls LastModified Time None Recorded Concern Status LastModified by Organization Details LastModified Time None Recorded Advance Directives Directive None Recorded Payers Encounter Date Sequence Insurance Name Policy Number Policy Davis Covered Member ID Davis Member ID Guarantor Name 05/12/2024 1 CLEMENTINE: AMY (PPO) [id number] Akliasuly Hsuy [id number] Alanna Johns Notes Date Note Type [...] and had ocular reaction. CARINA PANDA MD [address] [place] [address], [place], [address], [facility] - [facility] 05/12/2024 12:28:43 OBGyn Episode No OBEpisode recorded.
--- OUTSIDE RECORDS SUMMARY | 2024-08-25 12:47 | XMS_ITS ---
Author Organization [facility] Address [address] [place] [address] Care Team Providers Care Osteology Teacher Name Role Phone Braydon Cortes MD Primary Care Provider Gabino Lopez [phone] REASON FOR VISIT BUY Colig 10 Encounters Encounter Location Date Provider Diagnosis [facility] [address] [place] [address] 05/28/2024 Gabino Martins Plan Of Treatment No Information Progress Notes * ANDREAS Alanna EDOB: [birth year] (44 yo F)Acc No.[id number]:05/28/2024 Patient:?Johns Alanna Frazier :1980???Age:44 Y???Sex:Female Address:[address] [place], [address] * true * Date:? Generated for Printi ng/Falylag/eTransmitting on:?08/25/2024 12:46 PM EST
--- OUTSIDE RECORDS SUMMARY | 2024-08-25 12:47 | XMS_ITS | Patient Health Record ---
Author Organization [facility] Address [address] [place] [address] Care Team Providers Care After School Program Teacher Name Role Phone Braydon Cortes MD Primary Care Provider Gabino Lopez Unavailable [phone] Allergies No Known Allergies Reason For Referral [...] Status Risk Notes Problem Acquired hallux valgus (82597046) Hallux valgus (acquired), left foot (M20.12) Active confirmed Problem Acquired hallux valgus (92890706) Hallux valgus (acquired), right foot (M20.11) Active confirmed Encounters Encounter Location Date Provider Diagnosis [facility] [address] [place] [address] 05/28/2024 Gabino Martins Plan Of Treatment Pending Test Test Name Order Date X ray : Foot, left 3V 04/22/2019 X ray : Foot, right 3V 04/22/2019 Insurance Providers Payer Name Payer Address Payer Phone Subscriber Number Group Number Insured Name Patient Relationship to Insured Coverage Start Date Coverage End Date [facility] [address] [place] [address] [id number] Alanna Johns Self - patient is the insured Medical (General) History Medical History History ICD Code Chicken pox Headaches/Migraines Psoriasis/eczema High Cholesterol HPV cervical dysplasia Surgical History Surgery Date(Month/Year) adenoidectomy 1982
--- OUTSIDE RECORDS SUMMARY | 2024-08-25 12:47 | XMS_ITS | Patient Health Record ---
Author Organization [facility] Address [address] [place] [address] Care Team Providers Care Mechanical Service Technician Name Role Phone Braydon Cortes MD Primary Care Provider Denton Rios Jr Unavailable [phone] ALLERGIES Allergen (clinical drug ingredient) Drug/Non Drug [...] 100 MG as directed Orally 11/05/2022 Active [place] 3 1000 MG 1 capsule Orally Onc [...] Notes Problem Rectal bleeding (K62.5) Active confirmed 56334292 PLAN OF TREATMENT Future Test Test Name Order Date COLONOSCOPY 11/05/2022 Insurance Providers Payer Name Payer Address Payer Phone Subscriber Number Group Number Insured Name Patient Relationship to Insured Coverage Start Date Coverage End Date [employer] [address] [facility] [place] [phone] [id number] MORE SIDDIQUI Self - patient is the insured MEDICAL (GENERAL) HISTORY Medical History History ICD Code Small cerebral aneurysm Palpitations with negative cardiac vasquez p including echo and stress test Elevated cholesterol breast screening program Anxiety Gastroesophageal reflux disease Insomnia Surgical History Surgery Date(Month/Year) Adenoidectomy 1982 Hospitalization History Reason Date(Month/Year) Tonsillitis 2002
== END 2024-08-25 12:45 | disposition home or self-care (01) ==
LOC: HO.XRAY 12:44
PROVIDERS: PCP Internal Medicine; Visit Provider Family Medicine
DX: M25.561 Pain in right knee (principal)
CPT/HCPCS: 73564

== ENCOUNTER 2024-11-06 09:16 | Outpatient (REF) | payer BC, SELFPAY ==
--- OUTSIDE RECORDS SUMMARY | 2024-11-06 09:57 | XMS_ITS | Continuity of Care Document ---
Author Organization [place] [facility], [facility] Address [address] [place] [address] Care Team Providers Care Circulation Director Name Role Phone JUDY SHAW Primary Care Provider Assessment Encounter Date Assessment Date Assessment LastModified by Organization Details LastModified Time 10/13/2024 10/13/2024 Both some anoscopy tubes are still in good position and patent. Audiometric testing from her last visit reviewed which shows unchanged hearing compared to her preoperative status. The abnormal auditory perception that she is noting is likely due to the presence of the tubes in the tympanic membranes rather than an actual change in her auditory status I gave her reassurance that this sensation should pass as soon as the tubes extrude. She was happy with our discussion today. Will plan on our next visit in 6 months at which point the tube should have extruded. [email or web address] Not available 10/13/2024 11:54:21 Plan of Treatment Reminders Order Date Submit Date Provider Last Modified By Organization Details Last Modified Time Details Appointments Establish ed 10 2024 09:00A M CARINA PANDA MD Not available Not available Not available Lab None recorded. Referral None recorded. Procedures None recorded. Surgeries None recorded. Imaging None recorded. Medication Orders None recorded. Patient TargetsNo targets recorded. Patient InstructionsNo instructions recorded. Reason for Referral None Reported. Problems Name Problem SNOMED Code Status Onset Date Resolution Date Notes Provider Name and Address Organization Details Recorded Time Bilateral disorder of Eustachia n tubes 74760929094 06772 Active 2023 Other specified disorders of Eustachia n tube, bilateral ; Note: Date Diagnosed : 01/30/2024 4:52 PM (H69.83) Not Available [facility] 4 02:33:14 Conductiv e hearing loss 12418138 Active 2023 Conductiv e hearing loss, unilatera l, right ear, with unrestric bruna hearing on the contralat eral side; Note: Date Diagnosed : 01/30/2024 4:52 PM (H90.11) Not Available [facility] 4 02:33:20 Dysfuncti on of eustachia n tube 98537825 Active 2023 CARINA PANDA MD [address] [facility],[place] [address], [place], [address] , [place] [facility] [place] 4 12:15:44 Conductiv e hearing loss 38062813 Active 2023 CARINA PANDA MD [address] [facility],[place] [address], [facility] [place], [address] , [place] [facility] [place] 4 12:27:10 Abnormal auditory perceptio n 85539905 Active 2024 CARINA PANDA MD [address] [facility],[place] [address], [facility] [place], [address] , [place] [facility] [place] 5 11:53:28 Problem Notes None recorded. Procedures Surgical History Date Name Laterality Status Provider Name and Address Organization Details Recorded Time Air & Speech Audio with Tymps (32834, 30741 & 77809) completed LUCERO RAZA [address] [facility],[place] [address], [place], [address], [place] - [facility] 09/01/2024 10:08:28 024 NASOPHARYNGOSCOPY, SURGICAL, WITH DILATION OF EUSTACHIAN TUBE; BILATERAL (SURG) completed Philip Killian [place] - [facility] [place] 07/03/2024 10:31:55 024 Fiberoptic Nasopharyngoscopy completed CARINA PANDA MD [address] [facility],[place] [address], [place], [address], [place] [facility] 05/12/2024 12:27:25 Imaging Results None recorded. Procedure Notes None recorded. Medical Equipment None Reported. Allergies Allergen ID Allergen Name Allergen Category Reaction Reaction Severity Criticality Documentation Date Start Date Code Code System Note Provider Name and Address Organization Details Recorded Time 174826 kiwi fruit extract food other Not available Not available 04/03/2024 89741 01 RxNorm React ion: Unkno wn; Not Available [facility] 4 00:29:13 434413 pineapple allergeni c extract food,medi cation other Not available Not available 04/03/2024 50649 5 RxNorm React ion: Unkno wn; Not Available [facility] 4 00:29:15 Medications Name Sig Start Date [...] active Not Available Not Available Not Available paroxetine mesylate (menopausal symptoms suppressant ) 7.5 mg capsule active Not Available Not Available Not Available Vitals Date Recorded Body height Body mass index (BMI) Body weight Provider Name and Address Organization Details Last Updated DateTime 10/13/2024 162.56 cm 25.7 kg/m2 98270.86 g Isabel Barrett [place] - [facility] 10/13/2024 11:28:16 Social History None recorded. Functional Status None recorded. Mental Status None recorded. Family History Nothing Reported. Medical History Condition Response High Cholesterol Y Gynecological HistoryNo gynecological history recorded. Obstetrics History GPAL:G 0 P 0 0 0 0 Past Encounters Encounter ID Performer Location Encounter Start Date Encounter Closed Date Diagnosis/Indication Diagnosis SNOMED-CT Code Diagnosis ICD10 Code Diagnosis Note [id number] CARINA PANDA MD [facility] [address] [address] 10/13/2024 11:13:52 10/13/2024 11:54:10 Bilateral disorder of Eustachian tubes 4831931683 712665 H69.83 Abnormal a uditory perception 19281546 H93.299 Health Concerns Section Related Observation LastModified by Organization Detai ls LastModified Time None Recorded Concern Status LastModified by Organization Details LastModified Time None Recorded Payers Encounter Date Sequence Insurance Name Policy Number Policy Davis Covered Member ID Davis Member ID Guarantor Name 10/13/2024 1 [place] AMY (PPO) [id number] Kalia Suh [id number] Alanna Johns Notes Date Note Type Note Provider Name and Address Organization Details Recorded Time 10/13/2024 text/html Patient is statu s post bilateral balloon dilation of the eustachian tube, bilateral myringotomy with short acting tubes back in July 2024. Uneventful postoperative course with good improvement in postoperative audiometric testing noted on 09/01/2024. Went on a flight without any problems which she is very thrilled about.Patient reports that ever since the procedure she has had a mild muffling sensation affecting both ears like my head is in a bucket . She feels like she is having trouble hearing in different listening situations including social environments and television. She feels like this is worse in the left ear than the right ear. The sensation does not fluctuate. When she uses Valsalva maneuver, she notes that she is able to easily insufflate the right ear but not the left. CARINA PANDA MD [address] [place] [address], [address], [facility] - [facility] 10/13/2024 11:54:55 OBGyn Episode No OBEpisode recorded.
[2024-11-06 10:51] LABS: Alanine Aminotransferase 26 U/L (0-31)
[2024-11-09 12:09] LABS: Aspartate Amino Transferase 32 U/L (5-31)
== END 2024-11-06 09:17 | disposition home or self-care (01) ==
LOC: HO.10HDL 09:16
PROVIDERS: Visit Provider Nurse Practitioner Adult Health
DX: N95.1 Menopausal and female climacteric states (principal)
CPT/HCPCS: 36415; 84450; 84460

== ENCOUNTER 2024-12-10 20:13 | Inpatient (IN) | payer BC, SELFPAY ==
--- NOTE | ~2024-12-10 | FL_ITS ---
EXAMINATION: FL GUIDANCE ONLY HISTORY: LEFT TIBIAL IM NAIL, DISTAL FIBULA ORIF LEFT COMPARISON: Correlation is made with plain films of the left ankle dated 12/10/2024. TECHNIQUE: Fluoroscopy time: 3 minutes. Cumulative Dose: 9.14 mGy. DAP: 0.147 mGym2 Images: 9. FINDINGS: Images demonstrate internal fixation of the previously seen spiral fracture of the distal tibial metaphysis with a sideplate and multiple orthopedic screws. A comminuted oblique fracture of the distal fibula is again noted. FL/FL guidance in OR IMPRESSION: Fluoroscopy during procedure. Please see procedure report for additional information. Electronically signed by: Zachery Saldivar MD 12/14/2024 07:06 AM EDT
--- NOTE | ~2024-12-10 | XR_ITS ---
CLINICAL HISTORY: ankle pain 2 view left ankle Comparison: None Findings: There is a spiral fracture of the distal tibial diaphysis. Distal fragment is angulated posteriorly and medially, and there is 1/2 shaft width of lateral and posterior displacement. Comminuted oblique fracture of the distal fibular diaphysis with 1 shaft width posterior displacement of the distal fragment. No significant arthritic change or erosions. There is an ankle effusion. No radiopaque foreign body. Tibiotalar alignment is preserved. IMPRESSION: Angulated, displaced spiral fracture of the distal tibial diaphysis. Displaced oblique comminuted fracture of the distal fibula. This document has been electronically signed by: Jimbo Suggs MD on 12/10/2024 21:36:36
[2024-12-10 20:31] VITALS: BP 200/120; PULSE 80; O2SAT 97
[2024-12-10 20:40] VITALS: BP 144/77; PULSE 86; RESP 18; TEMP 36.6; O2SAT 97; BMI 22.3
[2024-12-10] MEDS: HYDROmorphone HCl 0.5 MG/0.5 ML SYRINGE IVPUSH (21:04)
--- NOTE | 2024-12-10 21:51 | ED_ITS ---
HPI - General Adult General Chief complaint: General Medical Stated complaint: fall 5 stairs no headstrike , ankle pain 06/11 Time Seen by Provider: 12/10/24 21:38 Source: patient and EMS Mode of arrival: EMS Limitations: no limitations History of Present Illness ED Provider: Dr. Leonila Schreiber HPI narrative: Patient comes to the emergency room complaining of left ankle pain, swelling and deformity after sustaining a fall.. Patient states that she fell down the stairs and landed with her ankle under left leg. Patient denies hitting head or losing consciousness. Patient denies being on blood thinners. Related Data Home Medications ?Medication ?Instructions ?Recorded ?Confirmed atorvastatin 10 mg tablet 10 mg PO BEDTIME 01/10/23 Allergies Allergy/AdvReac Type Severity Reaction Status Date / Time kiwi Allergy Unknown Unknown Verified 12/10/24 20:42 pineapple Allergy Unknown Unknown Verified 12/10/24 20:42 Review of Systems Review of Systems: Constitutional : No Weight loss, No Fever, No Chills, No Night Sweats, No Fatigue, No Malaise ENT/Mouth : No Hearing loss, No Ear Pain, No Nasal Congestion, No Sinus Pain, No Hoarseness, No sore throat, No Rhinorrhea, No Swallowing Difficulty Eyes: No Eye Pain, No Swelling, No Redness, No Foreign Body, No Discharge, No Vision Changes Cardiovascular : No Chest Pain, No SOB, No Dyspnea on Exertion, No Orthopnea, No Edema, No Palpitations Respiratory : No Cough, No Sputum, No Wheezing, No Smoke Exposure, No Dyspnea Gastrointestinal : No Nausea, No Vomiting, No Diarrhea, No Constipation, No abdominal Pain, No Hematochezia, No Melena Genitourinary : no irregular bleeding, No Dysuria, No Urinary Frequency, No Hematuria, No Urinary Incontinence, No Urgency, No Flank Pain, No Urinary Flow Changes, No Hesitancy Musculoskeletal : Complaining of severe ankle pain, swelling and deformity Skin : No Skin Lesions, No rash Neuro : No Weakness, No Numbness, No Paresthesias, No Loss of Consciousness, No Dizziness, No Headache Psych : No Anxiety/Panic, No Depression, No SI/HI/AH/VH, No Social Issues, Heme/Lymph: No Bruising, No Bleeding,No Lymphadenopathy Endocrine : No Polyuria, No Polydipsia, No Temperature Intolerance [facility] Past Medical History Medical History Insomnia GERD (gastroesophageal reflux disease) Anxiety HLD (hyperlipidemia) Palpitations Cerebral aneurysm Surgical History (Updated 01/10/23 @ 09:37 by Tri Barbosa NP) H/O adenoidectomy (~1981) Social History Social History Smoked in Last 30 Days: No Use of substances other than those prescribed or required for medical reasons: No Advance Directives: Yes Advance Directives Information Provided: Yes Advance Directives on File: No Do you have a plan to hurt others: No Plan Patient : No Physical Exam ED Vital Signs: Vital Signs - 24 hr 12/10/24 20:40 12/10/24 21:52 Temperature 97.9 F Pulse Rate 86 Respiratory Rate 18 18 Blood Pressure 144/77 H Pulse Oximetry 97 Oxygen Delivery Method Room Air BMI result Body Mass Index 22.3 Const Other: Appearance: Alert. Oriented X3. No acute distress. Eyes: Pupils equal, round and reactive to light. ENT: Pharynx normal. Neck: Normal inspection. Neck supple. No lymph nodes noted. No crepitus CVS: Normal heart rate and rhythm. Pulses normal. Normal S1 and S2 Respiratory: No respiratory distress. Breath sounds normal. No Wheezing. No rales Abdomen: Soft and nontender. No rigidity. No distention. Skin: Skin warm and dry. Normal skin color. Normal skin turgor. Extremities: No lower extremity edema. Positive pedal pulses palpable on the left foot. There is a small 3 mm laceration, possibly an open fracture? Neuro: Oriented X 3. No motor deficit. No sensory deficit. Moving all extremities. No slurred speech. CN 2 through 12 grossly intact Psych: calm, cooperative, normal affect Course Course Course Narrative: Patient was given IV Dilaudid, IV cefazolin Medications Administered Discontinued Medications Generic Name Dose Route Start Last Admin Trade Name Freq PRN Reason Stop Dose Admin Hydromorphone HCl 0.5 mg 12/10/24 20:53 12/10/24 21:04 Hydromorphone Hcl 0.5 Mg/0.5 Ml Syringe IVPUSH 12/10/24 20:54 0.5 mg ONCE ONE Administration Protocol Hydromorphone HCl 1 mg 12/10/24 21:45 12/10/24 21:52 Hydromorphone Hcl 1 Mg/Ml Syringe IVPUSH 12/10/24 21:46 1 mg ONCE ONE Administration Protocol Lorazepam 2 mg 12/10/24 21:45 12/10/24 21:52 Lorazepam 2 Mg/Ml Vial IVPUSH 12/10/24 21:46 2 mg ONCE ONE Administration Medical Decision Making Medical Decision Making [facility] Narrative: My interpretation of x-ray: There is very obvious spiral fracture on the distal tibial diaphysis and displaced oblique comminuted fracture of the distal fibula Patient was given 2 doses of IV Dilaudid and Ativan. Also, before attempting to move the leg into anatomic position, patient was giving a hematoma block the ankle Assistance of Dr. Hong, patient's leg was placed on a splint. Per Orthopedic surgery recommendations, splint to go just above the knee with mild ankle flexion and the leg was placed on 4 pillows Patient aware that she will be NPO after midnight. Differential Diagnosis Differential Diagnoses: The differential diagnosis associated with the presentation includes (Distal fibula fracture, distal tibia fracture, dislocation) Admission/Observation Consideration of admission/observation: Escalation of care including admi ssion/observation considered Consult Healthcare Provider Management of the patient was discussed with: Supervisor Contact Lens Lab Data [facility] Lab Attestation statement: I reviewed the patient's lab results. ABG Data Attestation ABG: I personally reviewed and interpreted this ABG as follows: Independent Interpretation I performed an independent interpretation of an: Plain X-Ray Radiology Impression Discussion of test interpretation with radiology: I have reviewed the radiologist's reading. Radiologist Impression: There is a spiral fracture of the distal tibial diaphysis. Distal fragment is angulated posteriorly and medially, and there is 1/2 shaft width of lateral and posterior displacement. Comminuted oblique fracture of the distal fibular diaphysis with 1 shaft width posterior displacement of the distal fragment. No significant arthritic change or erosions. There is an ankle effusion. No radiopaque foreign body. Tibiotalar alignment is preserved. IMPRESSION: Angulated, displaced spiral fracture of the distal tibial diaphysis. Displaced oblique comminuted fracture of the distal fibula. Independent Historian Clinical information obtained from an independent historian. History obtained from or confirmed by: EMS Critical Care Time Critical Care Time Critical Care Time: Yes Total Critical Care Time: 60 Attestation: I have personally provided critical care time. Time includes review of lab data, radiology results, discussion with consultants, and monitoring for potential decompensation. Intervention performed as documented. Discharge Plan Discharge Clinical Impression: Fracture of tibia and fibula Patient Disposition: Admitted As Inpatient Prescriptions: No Action atorvastatin 10 mg tablet 10 mg PO BEDTIME Print Language: Thai
[2024-12-10 21:52] VITALS: RESP 18
[2024-12-10] MEDS: LORazepam 2 MG/ML VIAL IVPUSH (21:52)
[2024-12-10] MEDS: HYDROmorphone HCl 1 MG/ML SYRINGE IVPUSH (21:52)
[2024-12-10 22:50] VITALS: BP 124/77; PULSE 77; RESP 18; O2SAT 99
[2024-12-10] MEDS: Lidocaine HCl 2 % MPF 5 ML VIAL 10 ML INFILTRATI (22:59)
--- NOTE | 2024-12-10 23:02 | PC.NURSE ---
Report given to ROBE Harley.
[2024-12-11] VITALS (14 sets, daily range): BP systolic 112–145; BP diastolic 58–92; PULSE 73–109; RESP 12–18; TEMP 36–37.2; O2SAT 96–100
[2024-12-11] MEDS: ceFAZolin Sodium 1 GM VIAL IVPUSH (00:44)
[2024-12-11] MEDS: 0.9 % Sodium Chloride Flush 3 ML SYRINGE IVFLUSH ×3 (00:45→23:58)
[2024-12-11] MEDS: HYDROmorphone HCl 0.5 MG/0.5 ML SYRINGE IVPUSH ×5 (06:18→23:50)
[2024-12-11 07:01] LABS: MANUAL DIFF FLAG NO
[2024-12-11 07:07] LABS: Basophils Percent Auto 0.4 % (0-2); Hematocrit 38.8 % (37.0-47.0); Hemoglobin 12.6 g/dl (12.0-16.0); Imm Gran Abs Auto 0.03 X10*3/uL (0.00-0.03); Imm Gran Pct Auto 0.4 % (0.0-0.4); Lymphocytes Absolute Auto 1.9 X10*3/uL (1.2-4.9); Lymphocytes Percent Auto 22.4 % (20-40); Mean Corpuscular HGB Conc 32.5 g/dl (31.0-35.0); Mean Corpuscular Hemoglobin 27.9 pg (27.0-33.0); Mean Corpuscular Volume 85.8 fL (80.0-98.0); Monocytes Absolute Auto 0.5 X10*3/uL (0.1-1.2); Monocytes Percent Auto 6.2 % (2-11); Neutrophils Absolute Auto 5.9 x10*3/uL (2.0-8.3); Neutrophils Percent Auto 70.6 % (45-73); Platelet Count 261 X10*3/uL (160-400); Red Blood Count 4.52 X10*6/uL (4.20-5.50); Red Cell Distribution Width 12.7 % (11.0-16.0); White Blood Count 8.4 X10*3/uL (4.8-10.8)
[2024-12-11 07:20] LABS: Anion Gap 14 (12-20); Blood Urea Nitrogen 11 mg/dL (9-16); Calcium 8.5 mg/dL (8.4-10.2); Carbon Dioxide 24 mmol/L (22-29); Chloride 104 mmol/L (96-108); Estimated Glomerular Filt Rate > 60; Glucose Fasting 85 mg/dL (60-99); Sodium 138 mmol/L (135-145)
--- NOTE | 2024-12-11 07:38 | PC.NURSE ---
Called [facility], patient is a surgical add on. Patient requesting to speak to surgical provider, [facility] to send message to provider
--- NOTE | 2024-12-11 08:03 | P.HPOP_ITS ---
History of Present Illness History of Present Illness Date of Service: 12/11/24 Chief complaint: Tibial shaft and distal fibula fx Narrative: Alanna Johns is a 44 year old female who presented to the emergency department overnight after falling down the stairs landing on her left ankle underneath her body weight. Immediately the patient knew that she had a fracture by the obvious deformity. She attempted to try to stabilize her lower extremity while going back up the stairs as no and was home and her phone was on the main floor. Review of Systems 2 Review of Systems: Yes all other systems are reviewed and are negative PMFSH Past Medical History Medical History Insomnia GERD (gastroesophageal reflux disease) Anxiety HLD (hyperlipidemia) Palpitations Cerebral aneurysm Surgical History Surgical History (Updated 01/10/23 @ 09:37 by Tri Barbosa NP) H/O adenoidectomy (~1981) Social History Social History Patient Tobacco Use Status: Never used Tobacco Smoked in Last 30 Days: No Use of substances other than those prescribed or required for medical reasons: No Advance Directives: Yes Advance Directives Information Provided: Yes Advance Directives on File: No Do you have a plan to hurt others: No Plan Nutrition Risks: No Nutritional Risk Patient : No Meds Allergies Allergy/AdvReac Type Severity Reaction Status Date / Time kiwi Allergy Unknown Unknown Verified 12/10/24 20:42 pineapple Allergy Unknown Unknown Verified 12/10/24 20:42 Active Medications: Current Medications Acetaminophen (Acetaminophen 325 Mg Tablet) 650 mg PO Q6H PRN PRN Reason: Pain, Mild 1-3,fever,headache Docusate Sodium (Docusate Sodium 100 Mg Capsule) 100 mg PO BID SHANAE Hydromorphone HCl (Hydromorphone Hcl 0.5 Mg/0.5 Ml Syringe) 0.5 mg IVPUSH Q4H PRN; Protocol PRN Reason: Pain, Severe (Pain Scale 7-10) Last Admin: 12/11/24 06:18 Dose: 0.5 mg Melatonin (Melatonin 3 Mg Tablet) 6 mg PO BEDTIME PRN PRN Reason: Insomnia Oxycodone HCl (Oxycodone Hcl Immed Release 5 Mg Tablet) 5 mg PO Q4H PRN PRN Reason: Pain, Moderate(Pain Scale 4-6) Sodium Chloride (0.9 % Sodium Chloride Flush 3 Ml Syringe) 3 ml IVFLUSH QSHIFT SHANAE Last Admin: 12/11/24 00:45 Dose: 3 ml Home Medications ?Medication ?Instructions ?Recorded ?Confirmed ?Last Taken ?Type atorvastatin 10 mg tablet 10 mg PO BEDTIME 01/10/23 Unknown History paroxetine mesylate(menop.sym) 7.5 7.5 mg PO DAILY 12/11/24 Unknown History mg capsule Physical Exam 2 Vital Signs: Vital Signs: Last Vital Signs Temp 98.1 F 12/11/24 05:53 Pulse 92 12/11/24 05:53 Resp 16 12/11/24 05:53 BP 136/72 12/11/24 05:53 Pulse Ox 100 12/11/24 05:53 O2 Del Method Room Air 12/11/24 05:53 O2 Flow Rate 2 12/11/24 02:49 BMI result Body Mass Index 22.3 Const: General: cooperative, healthy appearing and no acute distress Resp: Effort & Inspection: normal respiratory effort and able to speak in complete sentences Cardio: Rate: regular rate Peripheral pulses: Peripheral pulses 2+ throughout Extrem: Other: Left lower extremity and the posterior long leg splint. Able to move all digits. Reports sensation is intact. There are some photos taken of the skin which reveal some superficial abrasions from the stairs. No lacerations that needed closure. Results Labs 12/11/24 06:37 12/11/24 06:37 Labs: H & H 12/11/24 Range/Units 06:37 Hgb 12.6 (12.0-16.0) g/dl Hct 38.8 (37.0-47.0) % All other labs normal. Assessment and Plan (1) Fracture of tibia and fibula: Status: Acute I discussed the case with Dr. Burgos and explained the extent of the injury to the patient and options available which include surgical intervention. I explained the procedure in detail along with the length of recovery and rehab course. I explained the risk, benefits and alternatives. Risk including, but not limited to infection, blood clots, bleeding, non union or malunion and nerve/tissue damage to surrounding areas. I answered all their questions and with their understanding they have consented to move forward with Operative Fixation of the left lower extremity. The patient will remain NPO. Continue instruction of strict elevation above heart level on 4 pillows for edema management. Continue to monitor pain If increasing pain please notify orthopedics immediaely Monitor for compartment syndrome Continue pain management Quality Stroke Does the patient have a stroke diagnosis?: No VTE Prior VTE?: No VTE Risk Level:: Medical - moderate - high VTE Device Contraindication: N/A - Device Ordered VTE Drug Contraindication: N/A - Med Ordered Procedures Date of Service Date of Service: 12/11/24
--- NOTE | 2024-12-11 09:04 | PHA.MEDREC ---
Pharmacy Consult ? Medication Reconciliation Pharmacy has completed the medication reconciliation, spoke to patient at bedside who confirmed all medications, pt also takes colig-10 once a day that was not available to add.
--- NOTE | 2024-12-11 09:12 | HO.PM.IMCN ---
History of Present Illness Data of Consult Service Date: 12/11/24 Primary Care Provider: Dallas Fernandes MD HPI Reason for consult: Medical management Pt is a 44-year-old female with a H significant HLD, cerebral aneurysm, and Eustachian tube dysfunction who was admitted to the hospital under orthopedic services for angulated and displaced spiral fracture of distal tibia and displaced oblique comminuted fracture of distal fibula. Injury sustained after pt fell while carrying items down stairs, landing on left ankle which buckled under her. Hospitalist consult for preop clearance and medical management. 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 Was an incidental find on imaging in 2006 after pt had severe headache. Has been stable and unchanged since then with last imaging on 05/29/2021. Given stable nature of aneurysm pt follows only with PCP. Pt has had no past difficulties with anesthesia, with last surgery in July 2024 where she underwent Eustachian tube dilation surgery under general anesthesia. Pt states does particularly well with propofol. Pt complains of left ankle pain, though denies any other acute medical complaints. No nausea, vomiting. Denies fever, chills. No abdominal pain. Denies chest pain/pressure, palpitations. No SOB or difficulty breathing. No headache or acute vision changes. Review of Systems Review of Systems: Negative except for that which is stated in the HPI. [facility] Medical History (Updated 12/11/24 @ 09:30 by SAKINA Queen) Eustachian tube dysfunction Insomnia GERD (gastroesophageal reflux disease) Anxiety HLD (hyperlipidemia) Palpitations Cerebral aneurysm Surgical History H/O adenoidectomy (~1981) Social History Patient Tobacco Use Status: Never used Tobacco Smoked in Last 30 Days: No Use of substances other than those prescribed or required for medical reasons: No Advance Directives: Yes Advance Directives Information Provided: Yes Advance Directives on File: No Do you have a plan to hurt others: No Plan Nutrition Risks: No Nutritional Risk Patient : No Meds Allergies Allergy/AdvReac Type Severity Reaction Status Date / Time kiwi Allergy Unknown Unknown Verified 12/10/24 20:42 pineapple Allergy Unknown Unknown Verified 12/10/24 20:42 Active Medications: Current Medications Acetaminophen (Acetaminophen 325 Mg Tablet) 650 mg PO Q6H PRN PRN Reason: Pain, Mild 1-3,fever,headache Docusate Sodium (Docusate Sodium 100 Mg Capsule) 100 mg PO BID SHANAE Hydromorphone HCl (Hydromorphone Hcl 0.5 Mg/0.5 Ml Syringe) 0.5 mg IVPUSH Q4H PRN; Protocol PRN Reason: Pain, Severe (Pain Scale 7-10) Last Admin: 12/11/24 06:18 Dose: 0.5 mg Melatonin (Melatonin 3 Mg Tablet) 6 mg PO BEDTIME PRN PRN Reason: Insomnia Oxycodone HCl (Oxycodone Hcl Immed Release 5 Mg Tablet) 5 mg PO Q4H PRN PRN Reason: Pain, Moderate(Pain Scale 4-6) Sodium Chloride (0.9 % Sodium Chloride Flush 3 Ml Syringe) 3 ml IVFLUSH Q[facility] Last Admin: 12/11/24 00:45 Dose: 3 ml Home Medications ?Medication ?Instructions ?Recorded ?Confirmed ?Last Taken ?Type atorvastatin 10 mg tablet 10 mg PO BEDTIME 01/10/23 12/11/24 12/09/24 History cholecalciferol (vitamin D3) 50 50 mcg PO DAILY 12/11/24 12/11/24 12/10/24 History mcg (2,000 unit) tablet (Vitamin D3) coenzyme Q10 10 mg capsule 10 mg PO BEDTIME 12/11/24 12/11/24 12/09/24 History fezolinetant 45 mg tablet ([place]) 45 mg PO DAILY 12/11/24 12/11/24 12/10/24 History magnesium oxide 400 mg PO BEDTIME 12/11/24 12/11/24 12/09/24 History multivitamin 1 tab PO DAILY 12/11/24 12/11/24 12/10/24 History omega-3 fatty acids-fish oil 684 2 cap PO BEDTIME 12/11/24 12/11/24 12/09/24 History mg-1,200 mg capsule,delayed release Physical Exam Vital Signs and Narrative: Vital Signs: Last Vital Signs Temp 98.1 F 12/11/24 05:53 Pulse 92 12/11/24 05:53 Resp 16 12/11/24 05:53 BP 136/72 12/11/24 05:53 Pulse Ox 100 12/11/24 05:53 O2 Del Method Room Air 12/11/24 05:53 O2 Flow Rate 2 12/11/24 02:49 BMI result Body Mass Index 22.3 General: AOx3, no acute distress Resp: CTA bilaterally CVS: S1, S2, RRR GI: +BS, NT, no distention Skin: Warm, dry Neuro: Cranial nerves II-XII grossly intact bilaterally. Motor grossly intact bilaterally Extremities: Left ankle in splint and wrapped in clean bandages. Able to move all toes. Psych: Appropriate affect Results Labs 12/11/24 06:37 12/11/24 06:37 Labs: Laboratory Results - last 24 hr 12/10/24 12/11/24 23:53 06:37 MCV 85.8 MCH 27.9 MCHC 32.5 RDW 12.7 Plt Count 261 MPV 10.0 Immature Gran % (Auto) 0.4 Neut % (Auto) 70.6 Lymph % (Auto) 22.4 [place]ine % (Auto) 6.2 Eos % (Auto) 0.0 Baso % (Auto) 0.4 Lymph # (Auto) 1.9 [place] # (Auto) 0.5 Eos # (Auto) 0.0 Baso # (Auto) 0.0 Abs Immat Gran (auto) 0.03 Absolute Neuts (auto) 5.9 Absolute Nucleated RBC 0.000 Nucleated RBC % (auto) 0.0 Anion Gap 14 Estim Creat Clear Calc 104.0 Estimated GFR > 60 Fasting Glucose 85 Calcium 8.5 D Blood Type O Positive Antibody Screen NEGATIVE Assessment and Plan (1) Fracture of tibia and fibula: Status: Acute Plan Pt is a 44-year-old female with a H significant HLD, cerebral aneurysm, and Eustachian tube dysfunction who was admitted to the hospital under orthopedic services for angulated and displaced spiral fracture of distal tibia and displaced oblique comminuted fracture of distal fibula. Injury sustained after pt fell while carrying items down stairs, landing on left ankle which buckled under her. Hospitalist consult for preop clearance and medical management. Left tibia and fibula fracture Sustained after fall down the stairs Plan as per Orthopedics Pre-op clearance Pt with small 2.5 mm cerebral aneurysm Aneurysm has been stable since 2006 with last imaging on 05/29/2021 Pt has not had previous difficulties with anesthesia Last under general anesthesia in 07/2024 for eustachian tube balloon dilation No known cardiac issues, RCRI score of 0; no further cardiac workup indicated at this time Given PMH and physical exam there are no medical contraindications planned procedure HLD Continue statin Thank you for allowing us to participate in the care of this patient. Signing off at this time. Please re-consult if any acute complaints or issues arise.
[2024-12-11] MEDS: Acetaminophen 325 MG TABLET 650 MG PO (09:21)
[2024-12-11] MEDS: Docusate Sodium 100 MG CAPSULE PO ×2 (09:21→21:07)
[2024-12-11] MEDS: traMADoL HCL 50 MG TABLET PO ×2 (11:03→19:59)
--- NOTE | 2024-12-11 11:06 | PC.NURSE ---
Patient requesting external catheter once placed upstairs
--- NOTE | 2024-12-11 12:34 | MHC.CM.PN ---
FROM HOME WITH [facility]DPENDENT [facility], NO SERVICES OR DME PCP- VEGA DOMINIQUE HCP- ON FILE IN SYSTEM ACCORDING TO PT DCP- RIDE FROM , HOME SERVICES. NO SNF
--- NOTE | 2024-12-11 13:27 | MHC.SHP ---
Pre-Procedural Eval Section A - 24 Hr Update-Section A only Date of Service: 12/11/24 The patient is an INPATIENT: Yes Changes since office visit: No Cold of Flu in the past 2 weeks, No New Medical Problems, No Changes in Medication and No Patient answered all questions The patient has been examined within 24 hours of the surgical procedure. The History & Physical has been completed within 30 days and I have reviewed it.: Yes Section B - Complete if H&P > 30 days Chief Complaint: Tibial shaft and distal fibula fx Allergies: Allergies Allergy/AdvReac Type Severity Reaction Status Date / Time kiwi Allergy Unknown Unknown Verified 12/10/24 20:42 pineapple Allergy Unknown Unknown Verified 12/10/24 20:42 fluticasone [From Flonase] Allergy Eye Verified 12/11/24 13:18 Swelling Plan I have reviewed the history and physical and performed a pertinent physical examination on my patient. No changes have occurred unless specified. Time Spent With Patient Time: Total time managing care of this patient today ____ minutes.
[2024-12-11 14:04] LABS: HCG Quantitative < 2 mIU/mL
--- NOTE | 2024-12-11 14:08 | P.CONAN_ITS ---
HPI - Anesthesia Eval Consult details Narrative: 44 yo F presenting for left tibial I-M Nailing amd distial fibula ORIF PMFSH Active Problems Active Problems: All Active Problems Fracture of tibia and fibula (Acute) Past Medical History Medical History (Updated 12/11/24 @ 09:30 by SAKINA Queen) Eustachian tube dysfunction Insomnia GERD (gastroesophageal reflux disease) Anxiety HLD (hyperlipidemia) Palpitations Cerebral aneurysm Family History Family history of problems with anesthesia: No Surgical History Surgical History H/O adenoidectomy (~1981) History of Problems with Anesthesia: No Social History Social History Household Members: Spouse Housing: House Do you presently have visiting nurse or other home services: No Patient Tobacco Use Status: Never used Tobacco Second Hand Smoke Exposure: No Advance Directives Date on File: 12/11/24 service: No Meds Allergies Allergy/AdvReac Type Severity Reaction Status Date / Time kiwi Allergy Unknown Unknown Verified 12/10/24 20:42 pineapple Allergy Unknown Unknown Verified 12/10/24 20:42 fluticasone [From Flonase] Allergy Eye Verified 12/11/24 13:18 Swelling Active Medications: Current Medications Acetaminophen (Acetaminophen 325 Mg Tablet) 650 mg PO Q6H PRN PRN Reason: Pain, Mild 1-3,fever,headache Last Admin: 12/11/24 09:21 Dose: 650 mg Atorvastatin Calcium (Atorvastatin Calcium 10 Mg Tablet) 10 mg PO BEDTIME SHANAE Docusate Sodium (Docusate Sodium 100 Mg Capsule) 100 mg PO BID SHANAE Last Admin: 12/11/24 09:21 Dose: 100 mg Hydromorphone HCl (Hydromorphone Hcl 0.5 Mg/0.5 Ml Syringe) 0.5 mg IVPUSH Q4H PRN; Protocol PRN Reason: Pain, Severe (Pain Scale 7-10) Last Admin: 12/11/24 10:22 Dose: 0.5 mg Magnesium Oxide (Magnesium Oxide 400 Mg Tablet) 400 mg PO BEDTIME SHANAE Melatonin (Melatonin 3 Mg Tablet) 6 mg PO BEDTIME PRN PRN Reason: Insomnia Multivitamins/Vitamin C (Multivitamin Tablet) 1 tab PO DAILY SHANAE Sodium Chloride (0.9 % Sodium Chloride Flush 3 Ml Syringe) 3 ml IVFLUSH QSHIFT [facility] Last Admin: 12/11/24 09:21 Dose: 3 ml Tramadol HCl (Tramadol Hcl 50 Mg Tablet) 50 mg PO Q4H PRN PRN Reason: Pain, Moderate(Pain Scale 4-6) Last Admin: 12/11/24 11:03 Dose: 50 mg Vitamin D (Cholecalciferol (Vitamin D3) 25 Mcg Tablet) 50 mcg PO DAILY [facility] Home Medications ?Medication ?Instructions ?Recorded ?Confirmed ?Last Taken ?Type atorvastatin 10 mg tablet 10 mg PO BEDTIME 01/10/23 12/11/24 12/09/24 History cholecalciferol (vitamin D3) 50 50 mcg PO DAILY 12/11/24 12/11/24 12/10/24 History mcg (2,000 unit) tablet (Vitamin D3) coenzyme Q10 10 mg capsule 10 mg PO BEDTIME 12/11/24 12/11/24 12/09/24 History fezolinetant 45 mg tablet (Veozah) 45 mg PO DAILY 12/11/24 12/11/24 12/10/24 History magnesium oxide 400 mg PO BEDTIME 12/11/24 12/11/24 12/09/24 History multivitamin 1 tab PO DAILY 12/11/24 12/11/24 12/10/24 History omega-3 fatty acids-fish oil 684 2 cap PO BEDTIME 12/11/24 12/11/24 12/09/24 History mg-1,200 mg capsule,delayed release Exam Exam Date and Time: 12/11/24 1408 Height,Weight and Vital Signs: Height 5 ft 4 in Weight 59 kg Last Vital Signs Temp 98.5 F 12/11/24 13:20 Pulse 87 12/11/24 13:20 Resp 16 12/11/24 13:20 BP 141/69 H 12/11/24 13:20 Pulse Ox 100 12/11/24 13:20 O2 Del Method Room Air 12/11/24 13:20 O2 Flow Rate 2 12/11/24 02:49 Pertinent Lab Results Pertinent Lab Results: Laboratory Tests 12/10/24 12/11/24 23:53 06:37 WBC 8.4 RBC 4.52 Hgb 12.6 Hct 38.8 MCV 85.8 MCH 27.9 MCHC 32.5 RDW 12.7 Plt Count 261 MPV 10.0 Immature Gran % (Auto) 0.4 Neut % (Auto) 70.6 Lymph % (Auto) 22.4 [place] % (Auto) 6.2 Eos % (Auto) 0.0 Baso % (Auto) 0.4 Lymph # (Auto) 1.9 [place] # (Auto) 0.5 Eos # (Auto) 0.0 Baso # (Auto) 0.0 Abs Immat Gran (auto) 0.03 Absolute Neuts (auto) 5.9 Absolute Nucleated RBC 0.000 Nucleated RBC % (auto) 0.0 Sodium 138 Potassium 4.0 Chloride 104 Carbon Dioxide 24 Anion Gap 14 BUN 11 Creatinine 0.59 Estim Creat Clear Calc 104.0 Estimated GFR > 60 Fasting Glucose 85 Calcium 8.5 D Beta HCG, Quant < 2 Blood Type O Positive Antibody Screen NEGATIVE Airway Mallampati Class: I TM Dist: >3cm Neck ROM: Full Loose/Missing/Broken Teeth: No (patient denies any loose or broken teeth) Heart: S1S2 Lungs: CTAB Assessment and Plan Assessment Anesthesia Assessment: Anesthesia Plan Discussed and Chart Reviewed Final Anesthetic Review Family History of Problems with Anesthesia: No History of Problems with Anesthesia: No NPO: Yes ASA Class: II Final Preanesthetic Review: No Changes in Pt Med Stat, Meds/Allgs Chart Reviewed, Consent Obtained/Reviewed and Anes Risks/Benef Reviewed Patient Risk: Low Procedure Risk: Intermediate Anesthetic Plan Anesthetic Plan: GA and Agree w/ Assess. and Plan Disposition: Standard PACU
--- NOTE | 2024-12-11 18:53 | P.BOP_ITS ---
Brief Operative Note Date of Service: 12/11/24 Pre-op diagnosis: left tib/fib fracture Post-op diagnosis: same Procedure: Left tibia ORIF Implants: Pangea medial locking plate Surgeon: Kel Burgos MD Anesthesia: GETA and local Was an Transfer Controller used for this Procedure?: Yes Transfer Controller: Loraine Calero Estimated blood loss (mL): 200 IV fluids (mL): 2,000 Pathology: none sent Condition: stable Disposition: PACU
[2024-12-11] MEDS: Lactated Ringers 1,000 ML 100 ML IVCONT (19:45)
--- NOTE | 2024-12-11 21:00 | PC.NURSE ---
patient declined her 21:00 scheduled dose of oxyCONTIN because she said it makes her feel weird and that she will discuss with doctor tomorrow about it.
[2024-12-11] MEDS: ceFAZolin Sodium/Dextrose,Iso 2 GM/50 ML PIGGYBACK IV (21:05)
[2024-12-11] MEDS: Magnesium Oxide 400 MG TABLET PO (21:07)
[2024-12-11] MEDS: Celecoxib 200 MG CAPSULE PO (21:07)
[2024-12-11] MEDS: Atorvastatin Calcium 10 MG TABLET PO (21:07)
[2024-12-12 03:49] VITALS: BP 117/58; PULSE 80; RESP 18; TEMP 36.3; O2SAT 98
[2024-12-12] MEDS: HYDROmorphone HCl 0.5 MG/0.5 ML SYRINGE IVPUSH ×2 (03:51→07:59)
[2024-12-12] MEDS: Lactated Ringers 1,000 ML 100 ML IVCONT (05:55)
[2024-12-12] MEDS: traMADoL HCL 50 MG TABLET PO (06:29)
[2024-12-12 06:51] VITALS: BP 121/81; PULSE 92; RESP 15; TEMP 36.9; O2SAT 100
[2024-12-12 07:48] LABS: MANUAL DIFF FLAG NO
[2024-12-12] MEDS: Multivitamin TABLET 1 TAB PO (08:00)
[2024-12-12] MEDS: Docusate Sodium 100 MG CAPSULE PO ×2 (08:00→20:35)
[2024-12-12] MEDS: Cholecalciferol (Vitamin D3) 25 MCG TABLET 50 MCG PO (08:00)
[2024-12-12] MEDS: Celecoxib 200 MG CAPSULE PO (08:00)
[2024-12-12 08:01] LABS: Basophils Percent Auto 0.1 % (0-2); Hematocrit 31.3 % (37.0-47.0); Hemoglobin 10.4 g/dl (12.0-16.0); Imm Gran Abs Auto 0.02 X10*3/uL (0.00-0.03); Imm Gran Pct Auto 0.3 % (0.0-0.4); Lymphocytes Absolute Auto 2.1 X10*3/uL (1.2-4.9); Lymphocytes Percent Auto 27.4 % (20-40); Mean Corpuscular HGB Conc 33.2 g/dl (31.0-35.0); Mean Corpuscular Hemoglobin 28.7 pg (27.0-33.0); Mean Corpuscular Volume 86.5 fL (80.0-98.0); Mean Platelet Volume 9.8 fL (9.4-12.3); Monocytes Absolute Auto 0.6 X10*3/uL (0.1-1.2); Neutrophils Absolute Auto 4.8 x10*3/uL (2.0-8.3); Neutrophils Percent Auto 64.2 % (45-73); Platelet Count 232 X10*3/uL (160-400); Red Blood Count 3.62 X10*6/uL (4.20-5.50); Red Cell Distribution Width 12.8 % (11.0-16.0); White Blood Count 7.5 X10*3/uL (4.8-10.8)
[2024-12-12] MEDS: 0.9 % Sodium Chloride Flush 3 ML SYRINGE IVFLUSH ×2 (08:04→20:36)
[2024-12-12 08:06] LABS: Anion Gap 12 (12-20); Blood Urea Nitrogen 8 mg/dL (9-16); Calcium 7.8 mg/dL (8.4-10.2); Carbon Dioxide 23 mmol/L (22-29); Chloride 104 mmol/L (96-108); Creatinine Clr Calc Pharmacy 100.6; Estimated Glomerular Filt Rate > 60; Glucose Fasting 79 mg/dL (60-99); Potassium 3.9 mmol/L (3.3-5.1); Sodium 135 mmol/L (135-145)
--- NOTE | 2024-12-12 09:56 | PM.PNORT ---
Subjective Subjective Date of Service: 12/12/24 Principal diagnosis: POD#1 no complaints Physical Exam Vital Signs: Vital Signs: Last Vital Signs Temp 98.5 F 12/12/24 06:51 Pulse 92 12/12/24 06:51 Resp 15 12/12/24 06:51 BP 121/81 12/12/24 06:51 Pulse Ox 100 12/12/24 06:51 O2 Del Method Room Air 12/12/24 06:51 O2 Flow Rate 2 12/11/24 19:15 FiO2 33 12/11/24 19:07 BMI result Body Mass Index 22.3 Extrem: Other: splint c/d/i moving toes brisk cap refill Procedures Date of Service Date of Service: 12/12/24 Progress Note: A&P Assessment and plan (1) Fracture of tibia and fibula: Status: Acute Plan POD#1 s/p ORIF left tibia Doing well. Transition to PO NWB with PT ASA Dispo planning Time Spent With Patient Time: Total time managing care of this patient today ____ minutes. Quality Stroke Does the patient have a stroke diagnosis?: No VTE Prior VTE?: No VTE Risk Level:: Medical - moderate - high VTE Device Contraindication: N/A - Device Ordered VTE Drug Contraindication: N/A - Med Ordered
[2024-12-12 11:17] VITALS: BP 118/64; PULSE 100; RESP 19; TEMP 36.6; O2SAT 100
[2024-12-12] MEDS: HYDROmorphone HCl 2 MG TABLET PO ×2 (11:57→15:42)
[2024-12-12 15:34] VITALS: BP 116/61; PULSE 98; RESP 18; TEMP 37.1; O2SAT 99
--- NOTE | 2024-12-12 17:44 | HO.POSTANES ---
Post Anesthesia Evaluation Post Anesthesia Evaluation Date of Service: 12/12/24 Vital Signs: Vital Signs Temp Pulse Resp BP Pulse Ox O2 Del Method 12/12/24 15:34 98.7 F 98 18 116/61 99 Room Air 12/12/24 11:17 97.9 F 100 19 118/64 100 Room Air 12/12/24 06:51 98.5 F 92 15 121/81 100 Room Air Anesthesia: General Endotracheal-GETA Mental Status: Awake Pain Control: Satisfactory Nausea/Vomiting: None Hydration: Adequate Anesthesia-Related Issues: No Anes. Related Issues
[2024-12-12] MEDS: Aspirin Enteric Coated 325 MG TABLET.DR PO (17:47)
[2024-12-12 19:21] VITALS: BP 109/54; PULSE 100; RESP 18; TEMP 36.9; O2SAT 95
[2024-12-12] MEDS: Pregabalin 150 MG CAPSULE PO (20:35)
[2024-12-12] MEDS: Atorvastatin Calcium 10 MG TABLET PO (20:35)
[2024-12-12] MEDS: HYDROmorphone HCl 0.5 MG/0.5 ML SYRINGE 0.25 MG IVPUSH (20:35)
[2024-12-12] MEDS: Magnesium Oxide 400 MG TABLET PO (20:35)
[2024-12-12 23:47] VITALS: BP 112/60; PULSE 87; RESP 18; TEMP 37.2; O2SAT 94
[2024-12-13] MEDS: HYDROmorphone HCl 2 MG TABLET PO ×4 (00:14→18:36)
[2024-12-13 03:25] VITALS: BP 125/60; PULSE 93; RESP 18; TEMP 36.9; O2SAT 96
[2024-12-13] MEDS: HYDROmorphone HCl 0.5 MG/0.5 ML SYRINGE 0.25 MG IVPUSH (04:55)
[2024-12-13 06:57] VITALS: BP 128/78; PULSE 90; RESP 16; TEMP 36; O2SAT 98
[2024-12-13 07:32] LABS: Basophils Percent Auto 0.5 % (0-2); Eosinophils Absolute Auto 0.1 X10*3/uL (0.0-0.4); Eosinophils Percent Auto 0.8 % (0-4); Hematocrit 28.9 % (37.0-47.0); Hemoglobin 9.4 g/dl (12.0-16.0); Imm Gran Abs Auto 0.02 X10*3/uL (0.00-0.03); Imm Gran Pct Auto 0.3 % (0.0-0.4); Lymphocytes Percent Auto 48.1 % (20-40); MANUAL DIFF FLAG NO; Mean Corpuscular HGB Conc 32.5 g/dl (31.0-35.0); Mean Corpuscular Hemoglobin 28.3 pg (27.0-33.0); Monocytes Absolute Auto 0.5 X10*3/uL (0.1-1.2); Monocytes Percent Auto 8.4 % (2-11); Neutrophils Absolute Auto 2.6 x10*3/uL (2.0-8.3); Neutrophils Percent Auto 41.9 % (45-73); Platelet Count 221 X10*3/uL (160-400); Red Blood Count 3.32 X10*6/uL (4.20-5.50); Red Cell Distribution Width 13.2 % (11.0-16.0); White Blood Count 6.2 X10*3/uL (4.8-10.8)
[2024-12-13 07:40] LABS: Anion Gap 8 (12-20); Blood Urea Nitrogen 6 mg/dL (9-16); Calcium 7.6 mg/dL (8.4-10.2); Carbon Dioxide 29 mmol/L (22-29); Chloride 109 mmol/L (96-108); Creatinine Clr Calc Pharmacy 91.5; Estimated Glomerular Filt Rate > 60; Glucose Fasting 94 mg/dL (60-99); Potassium 4.3 mmol/L (3.3-5.1); Sodium 142 mmol/L (135-145)
[2024-12-13] MEDS: Cholecalciferol (Vitamin D3) 25 MCG TABLET 50 MCG PO (08:35)
[2024-12-13] MEDS: Docusate Sodium 100 MG CAPSULE PO ×2 (08:35→20:54)
[2024-12-13] MEDS: Multivitamin TABLET 1 TAB PO (08:35)
[2024-12-13] MEDS: 0.9 % Sodium Chloride Flush 3 ML SYRINGE IVFLUSH ×2 (08:38→13:42)
[2024-12-13] MEDS: Aspirin Enteric Coated 325 MG TABLET.DR PO ×2 (08:38→20:55)
--- NOTE | 2024-12-13 08:54 | PM.PNORT ---
Subjective Subjective Date of Service: 12/13/24 Principal diagnosis: POD#1 no complaints Interval history: POD2 s/p right tibia ORIF Patient is resting in bed comfortably No overnight events Pain is managed No additional complaints Physical Exam Vital Signs: Vital Signs: Last Vital Signs Temp 96.8 F 12/13/24 06:57 Pulse 90 12/13/24 06:57 Resp 16 12/13/24 06:57 BP 128/78 12/13/24 06:57 Pulse Ox 98 12/13/24 06:57 O2 Del Method Room Air 12/13/24 06:57 O2 Flow Rate 2 12/11/24 19:15 FiO2 33 12/11/24 19:07 BMI result Body Mass Index 22.3 Extrem: Other: splint c/d/i moving toes brisk cap refill Procedures Date of Service Date of Service: 12/13/24 Progress Note: A&P Assessment and plan (1) Fracture of tibia and fibula: Status: Acute (2) Status post open reduction and internal fixation (ORIF) of fracture: Status: Acute Plan Continue pain mgmnt Continue ASA for dvt ppx Continue PT/OT for left tibia ORIF - NWB Continue PO dilaudid Dispo planning- PT, pain mgmnt Time Spent With Patient Time: Total time managing care of this patient today ____ minutes. Quality Stroke Does the patient have a stroke diagnosis?: No VTE Prior VTE?: No VTE Risk Level:: Medical - moderate - high VTE Device Contraindication: N/A - Device Ordered VTE Drug Contraindication: N/A - Med Ordered
[2024-12-13 10:53] VITALS: BP 128/63; PULSE 105; RESP 16; TEMP 36.6; O2SAT 98
[2024-12-13 15:32] VITALS: BP 138/63; PULSE 92; RESP 18; TEMP 37.2; O2SAT 99
--- NOTE | 2024-12-13 17:03 | PM.DS ---
DS: Providers Provider Date of Service: 12/15/24 <Stefanie Carlos PA-C - Last Filed: 12/15/24 07:51> Date of admission: 12/10/24 21:51 <Loraine Calero PA-C - Last Filed: 12/14/24 07:50> Date of discharge: 12/15/24 <Stefanie Carlos PA-C - Last Filed: 12/15/24 07:51> Primary care physician: Dallas Fernandes MD <Loraine Calero PA-C - Last Filed: 12/14/24 07:50> Consults: 12/10/24 21:51 Consult to Hospitalist Routine Comment: Consulting Provider: [facility] Reason For Exam: Operative clearance, medical management <STEVE Montilla Last Filed: 12/14/24 07:50> DS: Diagnosis Discharge Diagnosis (1) Fracture of tibia and fibula: Status: Acute <Loraine Calero PA-C - Last Filed: 12/14/24 07:50> (2) Status post open reduction and internal fixation (ORIF) of fracture: Status: Acute <STEVE Montilla Last Filed: 12/14/24 07:50> DS: Summary Hospital Course Hospital Course: The patient underwent a successful left tibia open reduction internal fixatoin, they were transferred to PACU and then to the floor to recover. During their stay, their vitals were stable, afebrile at 98.2. Labs were unremarkable, H/H 9.6/29.87. POD 1 they were started on Aspirin 325mg po bid for DVT ppx, they also received Physical Therapy and Occupational Therapy services. Prior to discharge, their Splint and dressings were clean dry and intact, and the plan was to be discharged home with outpatient orthopedic followup. Patient is nonweightbearing on the left lower extremity Aspirin for DVT ppx <STEVE Montilla Last Filed: 12/14/24 07:50> Time Attestation Discharge Coordination Time (in mins): 30 <STEVE Montilla Last Filed: 12/14/24 07:50> Quality: Safe Use of Opioids Does Pt have an Active Cancer Diagnosis on the Problem List?: No <Loraine Calero PA-C - Last Filed: 12/14/24 07:50> Quality: Stroke Does the patient have a stroke diagnosis?: No <Loraine Calero PA-C - Last Filed: 12/14/24 07:50> Physical Exam Vital Signs: Vital Signs: Last Vital Signs Temp 99 F 12/13/24 15:32 Pulse 92 12/13/24 15:32 Resp 18 12/13/24 15:32 BP 138/63 12/13/24 15:32 Pulse Ox 99 12/13/24 15:32 O2 Del Method Room Air 12/13/24 15:32 O2 Flow Rate 2 12/11/24 19:15 FiO2 33 12/11/24 19:07 BMI result Body Mass Index 22.3 <Loraine Calero PA-C - Last Filed: 12/14/24 07:50> Extrem: Other: LLE: splint c/d/i, moving toes, brisk cap refill, sensation intact <Loraine Calero PA-C - Last Filed: 12/14/24 07:50> DS: Data Data Completed and Pending Labs on day of discharge: Laboratory Results - last 24 hr 12/13/24 06:30 WBC 6.2 RBC 3.32 L Hgb 9.4 L Hct 28.9 L MCV 87.0 MCH 28.3 MCHC 32.5 RDW 13.2 Plt Count 221 MPV 10.0 Immature Gran % (Auto) 0.3 Neut % (Auto) 41.9 L Lymph % (Auto) 48.1 H [place] % (Auto) 8.4 Eos % (Auto) 0.8 Baso % (Auto) 0.5 Lymph # (Auto) 3.0 [place] # (Auto) 0.5 Eos # (Auto) 0.1 Baso # (Auto) 0.0 Abs Immat Gran (auto) 0.02 Absolute Neuts (auto) 2.6 Absolute Nucleated RBC 0.000 Nucleated RBC % (auto) 0.0 Sodium 142 Potassium 4.3 Chloride 109 H Carbon Dioxide 29 Anion Gap 8 L BUN 6 L Creatinine 0.67 Estim Creat Clear Calc 91.5 Estimated GFR > 60 Fasting Glucose 94 Calcium 7.6 L <Loraine Calero PA-C - Last Filed: 12/14/24 07:50> Discharge Plan Discharge Anticipated Discharge Date/Time: 12/14/24 12:00 <Loraine Calero PA-C - Last Filed: 12/14/24 07:50> Patient Disposition: Home, Self-Care <Loraine Calero PA-C - Last Filed: 12/14/24 07:50> Discharge Diagnosis: s/p left tibia ORIF <Loraine Calero PA-C - Last Filed: 12/14/24 07:50> s/p left tibia ORIF <Stefanie Carlos PA-C - Last Filed: 12/15/24 07:51> Referrals: Loraine Calero PA-C [Physician Internet Consultant] - 12/22/24 10:00 am (12/22/24 at 10am ) <Loraine Calero PA-C - Last Filed: 12/14/24 07:50> Discharge Medications: New acetaminophen 325 mg Tablet 650 mg PO Q6H PRN (Reason: Pain, Mild 1-3,Fever,Headache) 30 Days Qty: 240 0RF aspirin 325 mg Tablet,Delayed Release (Dr/Ec) 325 mg PO BID 42 Days Qty: 84 0RF docusate sodium 100 mg Capsule 100 mg PO BID 30 Days Qty: 60 0RF pregabalin 150 mg Capsule 150 mg PO BEDTIME 7 Days Qty: 7 0RF hydromorphone 4 mg tablet 2 mg PO Q3H 7 Days Qty: 28 0RF Rx Instructions: Partial Fill upon patient request. Continued atorvastatin 10 mg tablet 10 mg PO BEDTIME multivitamin Tablet 1 tab PO DAILY coenzyme Q10 10 mg Capsule 10 mg PO BEDTIME omega-3 fatty acids-fish oil 684-1,200 mg Capsule,Delayed Release(Dr/Ec) 2 cap PO BEDTIME cholecalciferol (vitamin D3) [Vitamin D3] 50 mcg (2,000 unit) Tablet 50 mcg PO DAILY magnesium oxide 400 mg magnesium Tablet 400 mg PO BEDTIME Veozah 45 mg Tablet 45 mg PO DAILY No Action (DME) walker Misc See Rx Instructions .MEDSULY Qty: 1 0RF Rx Instructions: Folding Front wheeled walker (DME) SHOWER CHAIR See Rx Instructions .ROUTE .[facility] Qty: 1 0RF Rx Instructions: As directed <Loraine Calero PA-C - Last Filed: 12/14/24 07:50> Diet: Advance to usual diet <Loraine Calero PA-C - Last Filed: 12/14/24 07:50> Advance to usual diet <STEVE Mendez Last Filed: 12/15/24 07:51> Activity on Discharge: Walk with crutches <STEVE Montilla Last Filed: 12/14/24 07:50> Walk with crutches <STEVE Mendez Last Filed: 12/15/24 07:51> Stand Alone Forms: Patient Portal Discharge page <STEVE Montilla Last Filed: 12/14/24 07:50> Print Language: Divehi <STEVE Montilla Last Filed: 12/14/24 07:50> Care Plan Goals: Restore fxn to LLE <STEVE Montilla Last Filed: 12/14/24 07:50> Health Concerns: None <STEVE Montilla Last Filed: 12/14/24 07:50> Plan of Treatment: Nonweight bearing left lower extremity Keep splint clean, dry, and intact Elevate throughout the day above heart level Do not bathe or shower--keep splint clean, dry, and intact Call [facility]ics with any questions or concerns. Follow up with orthopedics in 7-10 days post op <STEVE Montilla Last Filed: 12/14/24 07:50> Assessment: Stable for discharge <STEVE Montilla Last Filed: 12/14/24 07:50>
[2024-12-13 19:31] VITALS: BP 131/60; PULSE 104; RESP 18; TEMP 36.9; O2SAT 99
[2024-12-13] MEDS: Atorvastatin Calcium 10 MG TABLET PO (20:54)
[2024-12-13] MEDS: Pregabalin 150 MG CAPSULE PO (20:54)
[2024-12-13] MEDS: Magnesium Oxide 400 MG TABLET PO (20:55)
[2024-12-14 03:03] VITALS: BP 153/81; PULSE 88; RESP 18; TEMP 36.6; O2SAT 98
[2024-12-14] MEDS: HYDROmorphone HCl 2 MG TABLET PO ×4 (03:09→22:13)
[2024-12-14 06:05] LABS: MANUAL DIFF FLAG NO
[2024-12-14 06:09] LABS: Basophils Percent Auto 0.3 % (0-2); Eosinophils Absolute Auto 0.1 X10*3/uL (0.0-0.4); Eosinophils Percent Auto 1.5 % (0-4); Hematocrit 31.7 % (37.0-47.0); Imm Gran Abs Auto 0.03 X10*3/uL (0.00-0.03); Imm Gran Pct Auto 0.4 % (0.0-0.4); Lymphocytes Absolute Auto 2.4 X10*3/uL (1.2-4.9); Lymphocytes Percent Auto 35.9 % (20-40); Mean Corpuscular HGB Conc 31.5 g/dl (31.0-35.0); Mean Corpuscular Hemoglobin 28.2 pg (27.0-33.0); Mean Corpuscular Volume 89.3 fL (80.0-98.0); Mean Platelet Volume 9.5 fL (9.4-12.3); Monocytes Absolute Auto 0.5 X10*3/uL (0.1-1.2); Monocytes Percent Auto 7.8 % (2-11); Neutrophils Absolute Auto 3.7 x10*3/uL (2.0-8.3); Neutrophils Percent Auto 54.1 % (45-73); Platelet Count 221 X10*3/uL (160-400); Red Blood Count 3.55 X10*6/uL (4.20-5.50); White Blood Count 6.8 X10*3/uL (4.8-10.8)
[2024-12-14 06:24] LABS: Anion Gap 12 (12-20); Blood Urea Nitrogen 4 mg/dL (9-16); Calcium 8.2 mg/dL (8.4-10.2); Carbon Dioxide 28 mmol/L (22-29); Chloride 105 mmol/L (96-108); Creatinine Clr Calc Pharmacy 100.6; Estimated Glomerular Filt Rate > 60; Glucose Fasting 103 mg/dL (60-99); Sodium 141 mmol/L (135-145)
[2024-12-14 07:10] VITALS: BP 144/77; PULSE 85; RESP 16; TEMP 36.4; O2SAT 98
[2024-12-14] MEDS: Multivitamin TABLET 1 TAB PO (08:24)
[2024-12-14] MEDS: Docusate Sodium 100 MG CAPSULE PO ×2 (08:24→19:13)
[2024-12-14] MEDS: Cholecalciferol (Vitamin D3) 25 MCG TABLET 50 MCG PO (08:24)
[2024-12-14] MEDS: Aspirin Enteric Coated 325 MG TABLET.DR PO ×2 (08:24→19:13)
[2024-12-14] MEDS: 0.9 % Sodium Chloride Flush 3 ML SYRINGE IVFLUSH ×3 (08:26→19:16)
[2024-12-14 11:00] VITALS: BP 140/68; PULSE 90; RESP 18; TEMP 36.4; O2SAT 93
[2024-12-14 15:57] VITALS: BP 124/68; PULSE 105; RESP 18; TEMP 36.4; O2SAT 98
[2024-12-14] MEDS: Magnesium Oxide 400 MG TABLET PO (19:13)
[2024-12-14] MEDS: Atorvastatin Calcium 10 MG TABLET PO (19:13)
[2024-12-14] MEDS: Pregabalin 150 MG CAPSULE PO (19:13)
[2024-12-14 19:17] VITALS: BP 137/64; PULSE 92; RESP 18; TEMP 36.6; O2SAT 100
[2024-12-15 03:13] VITALS: BP 117/63; PULSE 89; RESP 18; TEMP 36.1; O2SAT 98
[2024-12-15 06:48] LABS: MANUAL DIFF FLAG NO
[2024-12-15] MEDS: 0.9 % Sodium Chloride Flush 3 ML SYRINGE IVFLUSH (06:57)
[2024-12-15] MEDS: HYDROmorphone HCl 2 MG TABLET PO ×2 (06:57→11:38)
[2024-12-15] MEDS: Docusate Sodium 100 MG CAPSULE PO (06:57)
[2024-12-15] MEDS: Multivitamin TABLET 1 TAB PO (06:57)
[2024-12-15] MEDS: Cholecalciferol (Vitamin D3) 25 MCG TABLET 50 MCG PO (06:57)
[2024-12-15 06:58] LABS: Basophils Percent Auto 0.7 % (0-2); Eosinophils Absolute Auto 0.1 X10*3/uL (0.0-0.4); Eosinophils Percent Auto 2.1 % (0-4); Hematocrit 29.8 % (37.0-47.0); Hemoglobin 9.6 g/dl (12.0-16.0); Imm Gran Abs Auto 0.02 X10*3/uL (0.00-0.03); Imm Gran Pct Auto 0.3 % (0.0-0.4); Lymphocytes Absolute Auto 2.4 X10*3/uL (1.2-4.9); Mean Corpuscular HGB Conc 32.2 g/dl (31.0-35.0); Mean Corpuscular Hemoglobin 28.2 pg (27.0-33.0); Mean Corpuscular Volume 87.4 fL (80.0-98.0); Mean Platelet Volume 9.8 fL (9.4-12.3); Monocytes Absolute Auto 0.4 X10*3/uL (0.1-1.2); Monocytes Percent Auto 7.2 % (2-11); Neutrophils Absolute Auto 3.1 x10*3/uL (2.0-8.3); Neutrophils Percent Auto 50.7 % (45-73); Platelet Count 247 X10*3/uL (160-400); Red Blood Count 3.41 X10*6/uL (4.20-5.50); Red Cell Distribution Width 12.9 % (11.0-16.0); White Blood Count 6.1 X10*3/uL (4.8-10.8)
[2024-12-15 07:17] LABS: Anion Gap 11 (12-20); Blood Urea Nitrogen 6 mg/dL (9-16); Calcium 8.6 mg/dL (8.4-10.2); Carbon Dioxide 29 mmol/L (22-29); Chloride 104 mmol/L (96-108); Creatinine Clr Calc Pharmacy 98.9; Estimated Glomerular Filt Rate > 60; Glucose Fasting 100 mg/dL (60-99); Potassium 3.7 mmol/L (3.3-5.1); Sodium 140 mmol/L (135-145)
[2024-12-15 07:18] VITALS: BP 142/76; PULSE 89; RESP 18; TEMP 36.8; O2SAT 99
--- NOTE | 2024-12-15 07:51 | P.F2F_ITS ---
Service Date Service Date: 12/15/24 Encounter Date of encounter: 12/15/24 Reasons for Services Signs and symptoms assessed: Weakness, poor balance, poor gait mechanics Reason for physical therapy: home safety and mobility, therapeutic exercises, restore joint function, gait/transfer training, ADL training and energy conservation Reason for occupational therapy: home safety and mobility, therapeutic exercises, restore joint function, gait/transfer training, ADL training and energy conservation Homebound: Leaving the home is medically contraindicated at this time without the asist of a device and/or another person due th the listed conditions above and below. Reason homebound: unsteady gait / fall risk, pain with ambulation, poor balance / fall risk, non-weight bearing and unable to drive Homebound supporting statement: Pt. is considered home bound due to recent surgery. Unable to drive, poor balance, poor gait mechanics. Certification: Based on the above findings, I certify that this patient is confined to the home and needs intermittent long term care, physical therapy and/or speech therapy, or continues to need occupational therapy. The patient is under my care, and I have initiated the establishment of the plan of care. The patient will be followed by a physician who will periodically review the plan of care. Time Spent With Patient Time: Total time managing care of this patient today ____ minutes.
[2024-12-15] MEDS: Aspirin Enteric Coated 325 MG TABLET.DR PO (08:11)
--- NOTE | 2024-12-15 11:12 | MHC.CM.PN ---
Patient is discharged to home with services today. She has arranged for a ride home.
[2024-12-15 11:35] VITALS: BP 129/59; PULSE 91; RESP 16; TEMP 36.7; O2SAT 100
--- NOTE | 2024-12-17 17:25 | W.PM.OPN ---
Operative Note Operative Note Date of Service: 12/11/24 Narrative: Date of Service: 12/11/24 Pre-op diagnosis: left tib/fib fracture Post-op diagnosis: same Procedure: Left tibia ORIF Implants: Pangea medial locking plate Surgeon: Kel Burgos MD Anesthesia: GETA and local Was an Bow Maker Machine Tender used for this Procedure?: Yes Bow Maker Machine Tender: Loraine Calero Estimated blood loss (mL): 200 IV fluids (mL): 2,000 Pathology: none sent Condition: stable Disposition: PACU Patient was brought to the operating room and placed supine on the surgical table. She was prepped and draped in standard sterile fashion and a time out was called to identify proper site, proper procedure and IV antibiotics per weight were administered. I began by identifying the start site of the proximal tibia. A an incision was made over the patellar tendon and full-thickness flaps were retracted. A incision was made through the patellar tendon in line with the fibers of the tendon. The start site was identified using biplanar fluoroscopy and a guidewire was placed just medial to the lateral spine of the plateau and on the lateral just distal to the articular surface. The guidewire was placed into the canal and then over-reamed with a starting Reamer and my ball-tip guidewire was placed down the tibial canal. I was able to provisionally reduce the fracture and unfortunately the guidewire deviated significantly medially. I was able to get the tip of the guidewire more in the medial aspect of the tibia on the AP and lateral projection and reamed to a 11. I measured and placed my nail but while inserting the nail it tracked medially and I was not satisfied with the alignment. Therefore I made a small fede incision over the distal tibia and over the medial aspect of the distal fragment placed 1 blocking screw. I then passed my guidewire lateral to this bicortical locking screw and was satisfied with the position of the guidewire. I attempted again to place the ashley but I noticed a non displaced sagittal split along the distal fragment, possibly secon christel to the blocking screw and the force required to bypass the screw. At this point the decision was made to remove the ashley and convert to a plate. I felt that the fracture could not be controlled with the ashley in that plate fixation was indicated. Therefore I removed the ashley and I made a 3 cm incision over the medial malleolus and selected a long Pangea ( [place]) locking plate. Periosteal elevator was used to remove the periosteum from the proximal fragment and the plate was slid up the medial aspect of the fracture. Several locking screws were placed through the distal fragment and 3 screws were placed in compression to reduce any small fractures of the distal tibia. Standard AO technique was used. The articular surface appeared pristine and unharmed. I was satisfied with the alignment on the AP and lateral projections. Proximal of the fracture place 3 bicortical nonlocking screws through the plate. Biplanar fluoroscopy was again used to confirm reduction and I was satisfied that the alignment was anatomic. One additional raft screw was placed from distal to proximal along the distal aspect of the plate and an additional locking screw was placed just distal to the fracture. At this point I had anatomic alignment of the tibia. There was an oblique mildly displaced fracture of the fibula proximally with the syndesmosis. I felt that disrupting the soft tissue envelope of the lateral side of the leg was not necessary given the alignment of the tibia. I then irrigated copiously and closed the incisions with nylon. The soft tissue envelope was intact and the swelling was. Patient was placed into a well-padded posterior splint extubated and brought to recovery room in stable condition.
== END 2024-12-15 12:09 | disposition home health service (06) | DRG 313 ==
LOC: HO.ED 22:43 → HO.EDOVER 23:08 → HO.S3 12-11 10:52
PROVIDERS: Anesthesiology; Orthopaedic Surgery; Emergency Provider Emergency Medicine; PCP Internal Medicine
PROC: 0QSH04Z Reposition Left Tibia with Internal Fixation Device, Open Approach (ICD-10-PCS; principal; 2024-12-11 14:00)
DX: S82.242A Displaced spiral fracture of shaft of left tibia, initial encounter for closed fracture (principal); E78.5 Hyperlipidemia, unspecified; S82.452A Displaced comminuted fracture of shaft of left fibula, initial encounter for closed fracture; W10.9XXA Fall (on) (from) unspecified stairs and steps, initial encounter; Z79.899 Other long term (current) drug therapy
CPT/HCPCS: 36415; 73600; 80048; 84702; 85025; 86850; 86900; 86901; 97116; 97161; 97165; 99285; C1713; J0690; J1171; J2003; J2060; J2250; J2405; J2704; J2795; J3010; J7120

== ENCOUNTER → 2024-12-10 21:20 | Outpatient (BNV) | payer BC, SELFPAY | PROVIDERS: Emergency Provider Emergency Medicine; PCP Internal Medicine; Visit Provider Radiology Diagnostic Radiology | DX: S82.432A Displaced oblique fracture of shaft of left fibula, initial encounter for closed fracture (principal); S82.242A Displaced spiral fracture of shaft of left tibia, initial encounter for closed fracture | CPT/HCPCS: 73600 ==

== ENCOUNTER → 2024-12-10 21:51 | Outpatient (BNV) | payer BC, SELFPAY | PROVIDERS: Emergency Provider Emergency Medicine; PCP Internal Medicine; Visit Provider Student in an Organized Health Care Education/Training Program | DX: S82.209A Unspecified fracture of shaft of unspecified tibia, initial encounter for closed fracture (principal); S82.409A Unspecified fracture of shaft of unspecified fibula, initial encounter for closed fracture | CPT/HCPCS: 99222 ==

== ENCOUNTER → 2024-12-10 21:51 | Outpatient (BNV) | payer BC, SELFPAY | PROVIDERS: Emergency Provider Emergency Medicine; PCP Internal Medicine; Visit Provider Physician Assistant | DX: S82.209A Unspecified fracture of shaft of unspecified tibia, initial encounter for closed fracture (principal); S82.409A Unspecified fracture of shaft of unspecified fibula, initial encounter for closed fracture | CPT/HCPCS: 27828; 99024; 99222 ==

== ENCOUNTER 2024-12-22 09:52 | Outpatient (AMB) | payer BC, SELFPAY ==
--- NOTE | 2024-12-22 10:00 | A.OFFVIS_ITS ---
Intake Visit Reasons: PO-s/p left tibial ORIF on 12/11/24 with NE Intake Note: Alanna is a 44 year old female who presents today for a post operative left tibial ORIF on 12/11/24 with NE. Patient reports her ankle had a twitch that caused her pain. She mentions that the splint had a little room around her ankle. Allergies kiwi Allergy (Unknown, Verified 12/22/24 10:14) Unknown pineapple Allergy (Unknown, Verified 12/22/24 10:14) Unknown fluticasone [From Flonase] Allergy (Verified 12/22/24 10:14) Eye Swelling HPI HPI PO-s/p left tibial ORIF on 12/11/24 with NE: Details: Ms. Johns is a 44-year-old female who presents to the office today accompanied by her [id number] for follow-up status post left tibia ORIF performed on 12/11/[address] Burgos. The patient overall has been doing very well. She is no longer taking p.o. Dilaudid for pain control. She does report that the Lyrica 150mg has been extremely helpful at bedtime. Additionally, she has 25 mg that she is taking daily which does help her a great deal during the day. She is requesting a refill of both which I find reasonable. [facility] Medical History Eustachian tube dysfunction Insomnia GERD (gastroesophageal reflux disease) Anxiety HLD (hyperlipidemia) Palpitations Cerebral aneurysm Surgical History H/O adenoidectomy (~1981) Social History Household Members: Spouse Housing: House Do you presently have visiting nurse or other home services: No Patient Tobacco Use Status: Never used Tobacco Second Hand Smoke Exposure: No Advance Directives Date on File: 12/11/24 service: No Review of Systems Const All systems reviewed & are unremarkable except as noted in HPI and below Physical Exam Const General: cooperative, healthy appearing and no acute distress Resp Effort & Inspection: normal respiratory effort and able to speak in complete sentences Extrem Other: Left lower extremity incision sites are clean dry and intact. Sutures intact. No surrounding erythema or drainage. No signs of infection. Swelling is well controlled. NVI. Office Procedures Casting/Splints [id number] Leg splint application Procedure code (CPT) selection complete Assessment & Plan Assessment & Plan (1) Status post open reduction and internal fixation (ORIF) of fracture: Code(s): Z98.890 - Other specified postprocedural states; Z87.81 - Personal history of (healed) traumatic fracture Category: Surgical (2) Fracture of tibia and fibula: Code(s): S82.209A - Unspecified fracture of shaft of unspecified tibia, initial encounter for closed fracture; S82.409A - Unspecified fracture of shaft of unspecified fibula, initial encounter for closed fracture Category: Medical Plan Ms. Johns is a 44-year-old female who presents to the office today accompanied by her [id number] for follow-up status post left tibia ORIF performed on 12/11/[address] Burgos. The patient overall has been doing very well. She is no longer taking p.o. Dilaudid for pain control. She does report that the Lyrica 150mg has been extremely helpful at bedtime. Additionally, she has 25 mg that she is taking daily which does help her a great deal during the day. She is requesting a refill of both which I find reasonable. On the office today, a skin check was performed. The patient has been elevating as directed and has extremely good edema management. She was placed back into a posterior splint. Sutures remain in place until her follow-up appointment. I would like to see the patient on Saturday12/28/2024 with anticipation of suture removal and an x-ray, sooner if needed. I did send refills for the Lyrica both 150 mg p.o. bedtime and 25 mg p.o. daily. Medications: New pregabalin (Lyrica) 25 mg PO DAILY 30 caps 0RF 30 days pregabalin (Lyrica) 150 mg PO BEDTIME 30 caps 0RF 30 days Coding Level of Care Code Global (17501) Diagnoses Status post open reduction and internal fixation (ORIF) of fracture Z98.890; Z87.81 Fracture of tibia and fibula S82.209A; S82.409A CPT Codes Splint - CPT: 70662-Gilte Leg splint application ([id number])
--- OUTSIDE RECORDS SUMMARY | 2024-12-22 11:05 | XMS_ITS | Patient Health Record ---
Author Organization [facility] Address [address] [place] [address] Care Team Providers Care Senior Sales Director Name Role Phone Braydon Cortes MD Primary Care Provider Denton Rios Jr Unavailable Allergies Allergen (clinical drug ingredient) Drug/Non Drug Allergy documented on EMR Reaction Allergy Type Onset Date Status Kiwi Unknown Allergy Active pineapple (uncoded) Unknown Allergy Active Reason For Referral No Information Medications Medication [...] 100 MG as directed Orally 11/05/2022 Active [place] 3 1000 MG 1 capsule Orally Onc e a day for 30 day(s) 11/05/2022 Active Vitamin B Complex - as directed Orally 11/05/2022 Active Multi Adult Gummies - as directed Orally 3 Active Immunizations Vaccine Route Administration Date Status Comme nts Influenza Unknown 06/19/2022 Administered Social History Tobacco Use: Social History Observation Description Date Details (start date - stop date) Never Smoker NA - NA Tobacco Use/Smoking Question Answer Notes Patient is [...] Never (0 point) Points 1 Interpretation Negative 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 Problems Problem Type SNOMED Code ICD Code Onset Dates Problem Status W/U Status Risk Notes Problem 62541159 Rectal bleeding (K62.5) Active confirmed Plan Of Treatment Future Test Test Name Order Date COLONOSCOPY 11/05/2022 Insurance Providers Payer Name Payer Address Payer Phone Subscriber Number Group Number Insured Name Patient Relationship to Insured Coverage Start Date Coverage End Date [facility] [address] [place] [phone] [id number] MORE JOHNS Self - patient is the insured Medical (General) History Medical History History ICD Code Small cerebral aneurysm Palpitations with negative cardiac vasquez p including echo and stress test Elevated cholesterol breast screening program Anxiety Gastroesophageal reflux disease Insomnia Surgical History Surgery Date(Month/Year) Adenoidectomy 1982 Hospitalization History Reason Date(Month/Year) Tonsillitis 2002
--- OUTSIDE RECORDS SUMMARY | 2024-12-22 11:05 | XMS_ITS ---
Author Organization [facility] Address [address] [place] [address] Care Team Providers Care Non Ferrous Material Handler Name Role Phone Braydon Cortes MD Primary Care Provider Gabino Lopez [phone] REASON FOR VISIT BUY Colig 10 Encounters Encounter Location Date Provider Diagnosis [facility] [address] [place] [address] 05/28/2024 Gabino Martins Plan Of Treatment No Information Progress Notes * ANDREAS Alanna EDOB: [birth year] (44 yo F)Acc No.[id number]:05/28/2024 Patient:?JohnsBarbaraAlanna E :1980???Age:44 Y???Sex:Female Address:[address] [place], [address] * true * Date:? Generated for Printi ng/Faxing/eTransmitting on:?12/22/2024 11:05 AM EDT
--- OUTSIDE RECORDS SUMMARY | 2024-12-22 11:05 | XMS_ITS | Data Portability ---
Author Organization [place] [facility] Address [address] [place] [address] Care Team Providers Care Multimedia Services Manager Name Role Phone JUDY SHAW Primary Care Provider [phone] Assessment Encounter Date Assessment Date Assessment LastModified by Organization Details LastModified Time 09/01/2024 09/01/2024 44-year-old female presents s/p BMT and bilateral eustachian tube balloon dilation on 07/03/[address] Panda. Patient is concerned about gradually worsening muffled hearing, left worse than right. Otologic exam demonstrates tubes are well-placed and patent bilaterally. EACs are dry without obstruction. Audiometric testing demonstrated normal hearing bilaterally with slight right conductive overlay, improved since prior audiometric testing. Discussed eustachian tube dysfunction precautions for flying. Recommend follow up with Dr. Panda to discuss post-surgical abnormal auditory perception per patient request. [email or web address] Not available 09/01/2024 12:59:54 10/13/2024 10/13/2024 Both some anoscopy tubes are [...] which point the tube should have extruded. [email or web address] Not available 10/13/2024 11:54:21 Plan of Treatment Reminders Order Date Submit Date Provider Last Modified By Organization Details Last Modified Time Details Appointments Establish ed 10 2024 09:00A M CARINA PANDA MD Not available Not available Not available Lab None recorded. Referral None recorded. Procedures None recorded. Surgeries nasophary ngoscopy, surgical, with dilation of eustachia n tube; bilateral (SURG) 2023 024 [email or web address] Not available 05/12/2024 13:20:19 Imaging None recorded. Medication Orders None recorded. Patient TargetsNo targets recorded. Patient InstructionsNo instructions recorded. Reason for Referral None Reported. Results Created Date Observation Date Name Description Value Unit Range Abnormal Flag Note LastModifiedBy Organization Detail LastModifiedTime 05/12/20 24 01/30/2024 audio gram No observ ation record ed. BARCODE Not Available 2023 08:37:48 09/03/19 audio gram No observ ation record ed. BARCODE Not Available 2024 09:29:30 Result Notes None recorded. Problems Name Problem SNOMED Code Status Onset Date Resolution Date Notes Provider Name and Address Organization Details Recorded Time Bilateral disorder of Eustachia n tubes 70467517732 35529 Active 2023 Other specified disorders of Eustachia n tube, bilateral ; Note: Date Diagnosed : 01/30/2024 4:52 PM (H69.83) Not Available [facility] 4 02:33:14 Conductiv e hearing loss 69909671 Active 2023 Conductiv e hearing loss, unilatera l, right ear, with unrestric bruna hearing on the contralat eral side; Note: Date Diagnosed : 01/30/2024 4:52 PM (H90.11) Not Available [facility] 4 02:33:20 Dysfuncti on of eustachia n tube 68983003 Active 2023 CARINA PANDA MD [address] [place] [address],[place] [address], [place], [address] , [facility] 4 12:15:44 Conductiv e hearing loss 17240761 Active 2023 CARINA PANDA MD [address] [place] [address],[place] [address], [place], [address] , [facility] 4 12:27:10 Abnormal auditory perceptio n 02701826 Active 2024 CARINA PANDA MD [address] [facility],[place] [address], [place], [address] , [place] - [facility] 11:53:28 Problem Notes None recorded. Procedures Surgical History Date Name Laterality Status Provider Name and Address Organization Details Recorded Time Air & Speech Audio with Tymps (58811, 24511 & 14352) completed LUCERO RAZA [address] [facility],[place] [address], [place], [address], [facility] 09/01/2024 10:08:28 024 NASOPHARYNGOSCOPY, SURGICAL, WITH DILATION OF EUSTACHIAN TUBE; BILATERAL (SURG) completed Philip Killian [place] - [facility] 07/03/2024 10:31:55 024 Fiberoptic Nasopharyngoscopy completed CARINA PANDA MD [address] [facility],[place] [address], [place], [address], [facility] - [facility] 05/12/2024 12:27:25 Imaging Results Imaging Date Name Status LastModified by Organiz ation Details LastModified Time 01/30/2024 audiogram completed BARCODE Information no t available 05/12/2024 08:37:48 09/03/2024 audiogram completed BARCODE Information no t available 09/03/2024 09:29:30 Procedure Notes None recorded. Medical Equipment None Reported. Allergies Allergen ID Allergen Name Allergen Category Reaction Reaction Severity Criticality Documentation Date Start Date Code Code System Note Provider Name and Address Organization Details Recorded Time 260222 kiwi fruit extract food other Not available Not available 04/03/2024 92232 01 RxNorm React ion: Unkno wn; Not Available [facility] 4 00:29:13 158704 pineapple allergeni c extract food,medi cation other Not available Not available 04/03/2024 92990 5 RxNorm React ion: Unkno wn; Not Available [facility] 4 00:29:15 Medications Name Sig Start Date [...] Details Last Updated DateTime 05/12/2024 162.56 cm 45245.86 g Inyd Butt [place] [facility] 05/12/2024 11:46:54 Date Recorded Body height Body mass index (BMI) Body weight Provider Name and Address Organization Details Last Updated DateTime 10/13/2024 162.56 cm 25.7 kg/m2 07532.86 g Isabel Barrett [place] [facility] 10/13/2024 11:28:16 Social History None recorded. Functional Status None recorded. Mental Status None recorded. Family History Nothing Reported. Medical History Condition Response High Cholesterol Y Gynecological HistoryNo gynecological history recorded. Obstetrics History GPAL:G 0 P 0 0 0 0 Past Encounters Encounter ID Performer Location Encounter Start Date Encounter Closed Date Diagnosis/Indication Diagnosis SNOMED-CT Code Diagnosis ICD10 Code Diagnosis Note [id number] CARINA PANDA MD [facility] [address] [address] 05/12/2024 11:22:11 05/12/2024 12:27:19 Dysfunction of eustachian tube 39209618 H69.93 Patient has signs of symptoms of chronic eustachian tube dysfunctio n manifested by significan t difficulty with barochalle nge, particular ly with airplane flights. Both ears demonstrat e mild tympanic membrane retraction consistent with chronic baseline eustachian tube dysfunctio n. Given the chronicity of the patient's eustachian tube dysfunctio n, patient is a good candidate for balloon dilation of the {{right le ft bilater al*}} eustachian tubes. Alternativ e treatment options including continued observatio n and myringotom y with tube placement were discussed as well. I explained the procedure in detail. We discussed the 70-75% success rate in improving or reversing eustachian tube dysfunctio n. We discussed that there is good three year data showing the intermediate success as well. We discussed the risks of surgery, including bleeding, infection, anesthetic risks, patulous eustachian tube, and the small potential for damage to the carotid artery. Nasopharyn goscopy today has ruled out any intranasal or nasopharyn geal contraindi cations to balloon dilation on either side. After full discussion , the patient would like to proceed with {{right le ft bilater al*}} balloon dilation of eustachian tube with concurrent placement of pressure equalizati on tube {{on the right on the left bilat erally*}}. After full discussion , the patient would like to proceed with surgery. I have provided patient with the contact informatio n for my rn surgical. We will begin the scheduling process and see the patient back at the time of surgery. Patient {{will mariaelena l not*}} require medical clearance from their primary care provider preoperati anbila. Conductive hearing loss 63002671 H90.11 Patient does have mild right-side d conductive hearing loss which may represent early otoscleros is. Not enough hearing loss to warrant considerat ion of amplificat ion or surgical interventi on. Would recommend audiometri c testing next year. [id number] RENEE GARCIA MD [facility] [address] [address] 09/01/2024 09:50:13 09/01/2024 10:37:44 Bilateral disorder of Eustachian tubes 7368645914 481722 H69.83 Right Ear:Normal hearing with slight conductive overlay with excellent speech discrimina tion.Paten t tube.Left Ear:Normal hearing with excellent speech discrimina tion.Paten t tube. Conductive hearing loss 43852120 H90.11 [id number] CARINA PANDA MD [facility] [address] [address] 10/13/2024 11:13:52 10/13/2024 11:54:10 Bilateral disorder of Eustachian tubes 7759541573 737178 H69.83 Abnormal a uditory perception 61526450 H93.299 Health Concerns Section Related Observation LastModified by Organization Detai ls LastModified Time None Recorded Concern Status LastModified by Organization Details LastModified Time None Recorded Advance Directives Directive None Recorded Payers Encounter Date Sequence Insurance Name Policy Number Policy Davis Covered Member ID Davis Member ID Guarantor Name 05/12/2024 1 [place] [id number] Kalia Suh [id number] Alanna Johns 09/01/2024 1 [place] [id number] Kalia Vikash [id number] Alanna Johns 10/13/2024 1 [place] [id number] Kalia Vikash [id number] Alanna Johns Notes Date Note Type Note Provider Name and Address Organization Details Recorded Time 05/12/2024 text/html 44-year-old ann marie banegas evaluated by Dr. Goetz back in January [...] and had ocular reaction. CARINA PANDA MD [address] [place] [address], [place], [address], [facility] - [facility] 05/12/2024 12:28:43 09/01/2024 text/html 44-year-old ann marie banegas presents s/p BMT and bilateral eustachian tube balloon dilation on 07/03/[address] Panda. She reports bilateral muffled hearing that has worsened since surgery. She trials auto insufflation daily, and is only able to pop the right ear. She reports occasional sharp left otalgia that lasts seconds. Otalgia started 2 weeks ago. Denies echoing, dizziness, headache, photophobia, or hyperacusis. She is unable to tolerate Flonase. RENEE GARCIA MD [address] [facility],[address], [address], [facility] - [facility] 09/01/2024 17:30:58 10/13/2024 text/html Patient is statu s post [...] but not the left. CARINA PANDA MD [address] [facility],[place] [address], [place], [address], [place] - [facility] 10/13/2024 11:54:55 OBGyn Episode No OBEpisode recorded.
--- OUTSIDE RECORDS SUMMARY | 2024-12-22 11:05 | XMS_ITS | Patient Health Record ---
Author Organization [facility] Address [address] [place] [address] Care Team Providers Care Performance Tester Name Role Phone Braydon Cortes MD Primary Care Provider Gabino Lopez Unavailable [phone] Allergies No Known Allergies Reason For Referral [...] Status Risk Notes Problem Acquired hallux valgus (92595913) Hallux valgus (acquired), left foot (M20.12) Active confirmed Problem Acquired hallux valgus (34082128) Hallux valgus (acquired), right foot (M20.11) Active confirmed Encounters Encounter Location Date Provider Diagnosis [facility] [address] [place] [address] 05/28/2024 Gabino Martins Plan Of Treatment Pending Test Test Name Order Date X ray : Foot, left 3V 04/22/2019 X ray : Foot, right 3V 04/22/2019 Insurance Providers Payer Name Payer Address Payer Phone Subscriber Number Group Number Insured Name Patient Relationship to Insured Coverage Start Date Coverage End Date [facility] [address] [place] [address] [id number] Alanna Johns Self - patient is the insured Medical (General) History Medical History History ICD Code Chicken pox Headaches/Migraines Psoriasis/eczema High Cholesterol HPV cervical dysplasia Surgical History Surgery Date(Month/Year) adenoidectomy 1982
== END 2024-12-22 11:04 | disposition home or self-care (01) ==
LOC: HO.HOS 09:53
PROVIDERS: PCP Internal Medicine; Visit Provider Physician Assistant
DX: S82.202D Unspecified fracture of shaft of left tibia, subsequent encounter for closed fracture with routine healing (principal); S82.402D Unspecified fracture of shaft of left fibula, subsequent encounter for closed fracture with routine healing
CPT/HCPCS: 29515; 99024

== ENCOUNTER → 2024-12-22 09:52 | Outpatient (BNVA) | payer BC, SELFPAY | PROVIDERS: PCP Internal Medicine; Visit Provider Physician Assistant | DX: S82.202D Unspecified fracture of shaft of left tibia, subsequent encounter for closed fracture with routine healing (principal); S82.402D Unspecified fracture of shaft of left fibula, subsequent encounter for closed fracture with routine healing; X58.XXXD Exposure to other specified factors, subsequent encounter; Z98.890 Other specified postprocedural states | CPT/HCPCS: 29515 ==

== ENCOUNTER 2024-12-23 13:34 | Outpatient (AMB) | payer BC, SELFPAY ==
--- NOTE | 2024-12-23 14:01 | A.OFFVIS_ITS ---
Intake Visit Reasons: PO-s/p left tibial ORIF on 12/11/24 with NE Intake Note: Alanna is a 44 year old female who presents today for a post operative left tibial ORIF on 12/11/24 with NE. Patient reports her splint is a bit tight and she feels that her foot is not in a right position. Allergies kiwi Allergy (Unknown, Verified 12/23/24 14:11) Unknown pineapple Allergy (Unknown, Verified 12/23/24 14:11) Unknown fluticasone [From Flonase] Allergy (Verified 12/23/24 14:11) Eye Swelling HPI HPI PO-s/p left tibial ORIF on 12/11/24 with NE: Details: Ms. Johns presents to the office today status post left tibial ORIF on 12/11/[address] Burgos. Patient was seen yesterday in the office and placed into a posterior splint. She reports that she was uncomfortable in the splint and would like to have it changed. [facility] Medical History (Updated 12/23/24 @ 00:03 by Background Lucy) Fracture of tibia and fibula Eustachian tube dysfunction Insomnia GERD (gastroesophageal reflux disease) Anxiety HLD (hyperlipidemia) Palpitations Cerebral aneurysm Surgical History (Updated 12/23/24 @ 00:03 by Background Daemon) H/O adenoidectomy (~1981) Social History Household Members: Spouse Housing: House Do you presently have visiting nurse or other home services: No Patient Tobacco Use Status: Never used Tobacco Second Hand Smoke Exposure: No Advance Directives Date on File: 12/11/24 service: No Review of Systems Const All systems reviewed & are unremarkable except as noted in HPI and below Physical Exam Const General: cooperative, healthy appearing and no acute distress Resp Effort & Inspection: normal respiratory effort and able to speak in complete sentences Extrem Other: Left lower extremity incision sites are clean dry and intact. Sutures intact. No surrounding erythema or drainage. No signs of infection. Swelling is well controlled. NVI. Office Procedures Casting/Splints 17746-Akzhj Leg splint application Procedure code (CPT) selection complete Assessment & Plan Assessment & Plan (1) Status post open reduction and internal fixation (ORIF) of fracture: Code(s): Z98.890 - Other specified postprocedural states; Z87.81 - Personal history of (healed) traumatic fracture Category: Surgical Plan While the office today, the patient's splint was changed per request. The patient was educated on splint maintenance and instructed to keep the splint clean, dry, and intact. However, should the splint become wet, dirty, damaged, or there are any concerns please call the office immediately for a splint change. She will follow up at her normally scheduled follow-up appointment on Saturday, sooner if needed. Coding Level of Care Code Global (79258) Diagnoses Status post open reduction and internal fixation (ORIF) of fracture Z98.890; Z87.81 CPT Codes Splint - CPT: 79034-Ewngd Leg splint application ([id number])
--- OUTSIDE RECORDS SUMMARY | 2024-12-23 16:09 | XMS_ITS | Patient Health Record ---
Author Organization [facility] Address [address] [place] [address] Care Team Providers Care Senior Sales Administrator Name Role Phone Braydon Cortes MD Primary Care Provider Denton Rios Jr Unavailable [phone] Allergies Allergen (clinical drug ingredient) Drug/Non Drug [...] 100 MG as directed Orally 11/05/2022 Active [place] 3 1000 MG 1 capsule Orally Onc e a day for 30 day(s) 11/05/2022 Active Vitamin B Complex - as directed Orally 11/05/2022 Active Multi Adult Gummies - as directed Orally Active Immunizations Vaccine Route Administration Date Status [...] point) Points 1 Interpretation Negative 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 Problems Problem Type SNOMED Code ICD Code Onset Dates Problem Status W/U Status Risk Notes Problem 93962175 Rectal bleeding (K62.5) Active confirmed Plan Of Treatment Future Test Test Name Order Date COLONOSCOPY 11/05/2022 Insurance Providers Payer Name Payer Address Payer Phone Subscriber Number Group Number Insured Name Patient Relationship to Insured Coverage Start Date Coverage End Date [facility] [address] [place] [phone] [id number] MORE JOHNS Self - patient is the insured Medical (General) History Medical History History ICD Code Small cerebral aneurysm Palpitations with negative cardiac vasquez p including echo and stress test Elevated cholesterol breast screening program Anxiety Gastroesophageal reflux disease Insomnia Surgical History Surgery Date(Month/Year) Adenoidectomy 1982 Hospitalization History Reason Date(Month/Year) Tonsillitis 2002
--- OUTSIDE RECORDS SUMMARY | 2024-12-23 16:09 | XMS_ITS | Patient Health Record ---
Author Organization [facility] Address [address] [place] [address] Care Team Providers Care Photographer News Name Role Phone Braydon Cortes MD Primary Care Provider Gabino Lopez Unavailable [phone] Allergies No Known Allergies Reason For Referral [...] Status Risk Notes Problem Acquired hallux valgus (54237684) Hallux valgus (acquired), left foot (M20.12) Active confirmed Problem Acquired hallux valgus (57390995) Hallux valgus (acquired), right foot (M20.11) Active confirmed Encounters Encounter Location Date Provider Diagnosis [facility] [address] [place] [address] 05/28/2024 Gabino Martins Plan Of Treatment Pending Test Test Name Order Date X ray : Foot, left 3V 04/22/2019 X ray : Foot, right 3V 04/22/2019 Insurance Providers Payer Name Payer Address Payer Phone Subscriber Number Group Number Insured Name Patient Relationship to Insured Coverage Start Date Coverage End Date [facility] [address] [place] [address] [id number] Alanna Johns Self - patient is the insured Medical (General) History Medical History History ICD Code Chicken pox Headaches/Migraines Psoriasis/eczema High Cholesterol HPV cervical dysplasia Surgical History Surgery Date(Month/Year) adenoidectomy 1982
--- OUTSIDE RECORDS SUMMARY | 2024-12-23 16:09 | XMS_ITS ---
Author Organization [facility] Address [address] [place] [address] Care Team Providers Care Agronomy Professor Name Role Phone Braydon Cortes MD Primary Care Provider Gabino Lopez [phone] REASON FOR VISIT BUY Colig 10 Encounters Encounter Location Date Provider Diagnosis [facility] [address] [place] [address] 05/28/2024 Gabino Martins Plan Of Treatment No Information Progress Notes * ANDREAS Alanna EDOB: [birth year] (44 yo F)Acc No.[id number]:05/28/2024 Patient:?JohnsBarbaraAlanna E :1980???Age:44 Y???Sex:Female Address:[address] [place], [address] * true * Date:? Generated for Printi ng/Faxing/eTransmitting on:?12/23/2024 04:09 PM EDT
--- OUTSIDE RECORDS SUMMARY | 2024-12-23 16:10 | XMS_ITS | Data Portability ---
Author Organization [place] [facility], [facility] Address [address] [place] [address] Care Team Providers Care Public Health Dietitian Name Role Phone JUDY SHAW Primary Care Provider [phone] Assessment Encounter Date Assessment Date Assessment LastModified [...] which point the tube should have extruded. [email or web address] Not available 10/13/2024 11:54:21 Plan of Treatment [...] Time Bilateral disorder of Eustachia n tubes 24909370692 10640 Active 2023 Other specified disorders of Eustachia n tube, bilateral ; Note: Date Diagnosed : 01/30/2024 4:52 PM (H69.83) Not Available [facility] 4 02:33:14 Conductiv e hearing loss 76686285 Active 2023 Conductiv e hearing loss, unilatera l, right ear, with unrestric bruna hearing on the contralat eral side; Note: Date Diagnosed : 01/30/2024 4:52 PM (H90.11) Not Available [facility] 4 02:33:20 Dysfuncti on of eustachia n tube 72982740 Active 2023 CARINA PANDA MD [address] [place] [address],[place] [address], [place], [address] , [facility] 4 12:15:44 Conductiv e hearing loss 21996995 Active 2023 CARINA PANDA MD [address] [place] [address],[place] [address], [place], [address] , [facility] 4 12:27:10 Abnormal auditory perceptio n 45483758 Active 2024 CARINA PANDA MD [address] [facility],[place] [address], [place], [address] , [place] [facility] 11:53:28 Problem Notes None recorded. Procedures Surgical History Date Name Laterality Status Provider Name and Address Organization Details Recorded Time Air & Speech Audio with Tymps (65448, 40694 & 93305) completed LUCERO RAZA [address] [facility],[place] [address], [place], [address], [facility] [place] 09/01/2024 10:08:28 024 NASOPHARYNGOSCOPY, SURGICAL, WITH DILATION OF EUSTACHIAN TUBE; BILATERAL (SURG) completed Philip Killian [place] - [facility] 07/03/2024 10:31:55 024 Fiberoptic Nasopharyngoscopy completed CARINA PANDA MD [address] [facility],[place] [address], [place], [address], [facility] - [facility] 05/12/2024 12:27:25 Imaging Results Imaging Date [...] Name and Address Organization Details Recorded Time 943715 kiwi fruit extract food other Not available Not available 04/03/2024 15562 01 RxNorm React ion: Unkno wn; Not Available [facility] 4 00:29:13 196627 pineapple allergeni c extract food,medi cation other Not available Not available 04/03/2024 45145 5 RxNorm React ion: Unkno wn; Not Available [facility] 4 00:29:15 Medications Name Sig Start Date [...] Details Last Updated DateTime 05/12/2024 162.56 cm 71939.86 g Indy Butt [place] [facility] 05/12/2024 11:46:54 Date Recorded Body height Body mass index (BMI) Body weight Provider Name and Address Organization Details Last Updated DateTime 10/13/2024 162.56 cm 25.7 kg/m2 99843.86 g Isabel Barrett [place] - [facility] 10/13/2024 11:28:16 Social History None recorded. Functional Status None recorded. Mental Status None recorded. Family History Nothing Reported. Medical History Condition Response High Cholesterol Y Gynecological HistoryNo gynecological history recorded. Obstetrics History GPAL:G 0 P 0 0 0 0 Past Encounters Encounter ID Performer Location Encounter Start Date Encounter Closed Date Diagnosis/Indication Diagnosis SNOMED-CT Code Diagnosis ICD10 Code Diagnosis Note [id number] CARINA PANDA MD [facility] [address] [address] 05/12/2024 11:22:11 05/12/2024 12:27:19 Dysfunction of eustachian tube 52242875 H69.93 Patient has signs of symptoms of [...] is good three year data showing the mcc success as well. We discussed the risks [...] with the contact informatio n for my certified surgical tech/first assistant. We will begin the scheduling process and see the patient back at the time of surgery. Patient {{will mariaelena l not*}} require medical clearance from their primary care provider preoperati nabila. Conductive hearing loss 54513595 H90.11 Patient does have mild right-side d conductive hearing loss which may represent early otoscleros is. Not enough hearing loss to warrant considerat ion of amplificat ion or surgical interventi on. Would recommend audiometri c testing next year. [id number] RENEE GARCIA MD [facility] [address] [address] 09/01/2024 09:50:13 09/01/2024 10:37:44 Bilateral disorder of Eustachian tubes 8381208105 167739 H69.83 Right Ear:Normal hearing with slight conductive overlay with excellent speech discrimina tion.Paten t tube.Left Ear:Normal hearing with excellent speech discrimina tion.Paten t tube. Conductive hearing loss 77469574 H90.11 [id number] CARINA PANDA MD [facility] [address] [address] 10/13/2024 11:13:52 10/13/2024 11:54:10 Bilateral disorder of Eustachian tubes 1771962861 214164 H69.83 Abnormal a uditory perception 76765413 H93.299 Health Concerns Section Related Observation LastModified by Organization Detai ls LastModified Time None Recorded Concern Status LastModified by Organization Details LastModified Time None Recorded Advance Directives Directive None Recorded Payers Encounter Date Sequence Insurance Name Policy Number Policy Davis Covered Member ID Davis Member ID Guarantor Name 05/12/2024 1 [place] [id number] Kalia Suh [id number] 11 Alanna Johns 09/01/2024 1 [place] [id number] Kalia Vikash [id number] 11 Alanna Johns 10/13/2024 1 [place] [id number] Kalia Vikash [id number] 11 Alanna Johns Notes Date Note Type [...] and had ocular reaction. CARINA PANDA MD [address] [place] [address], [place], [address], [facility] - [facility] 05/12/2024 12:28:43 09/01/2024 text/html 44-year-old ann [...] to tolerate Flonase. RENEE GARCIA MD [address] [facility],[address], [address], [facility] - [facility] 09/01/2024 17:30:58 10/13/2024 text/html Patient is [...] not the left. CARINA PANDA MD [address] [facility],[place] [address], [place], [address], [place] [facility] 10/13/2024 11:54:55 OBGyn Episode No OBEpisode recorded.
== END 2024-12-23 14:43 | disposition home or self-care (01) ==
LOC: HO.HOS 13:34
PROVIDERS: PCP Internal Medicine; Visit Provider Physician Assistant
DX: Z47.89 Encounter for other orthopedic aftercare (principal); S82.92XD Unspecified fracture of left lower leg, subsequent encounter for closed fracture with routine healing
CPT/HCPCS: 29515; 99024

== ENCOUNTER → 2024-12-23 13:34 | Outpatient (BNVA) | payer BC, SELFPAY | PROVIDERS: PCP Internal Medicine; Visit Provider Physician Assistant | DX: Z47.89 Encounter for other orthopedic aftercare (principal); Z87.81 Personal history of (healed) traumatic fracture; Z98.890 Other specified postprocedural states | CPT/HCPCS: 29515 ==

== ENCOUNTER 2024-12-28 08:33 | Outpatient (REF) | payer BC, SELFPAY ==
--- NOTE | ~2024-12-28 | XR_ITS ---
CLINICAL HISTORY: Z98.890 - Other specified postprocedural states Left tibia fibula two views Comparison: 12/10/2024 Findings: Status post tibial fracture fixation. Plate and screws are intact. Comminuted distal tibial and fibular fractures. Alignment is anatomic. No new bony abnormality identified. Impression: Nondisplaced tibial and fibular fractures This document has been electronically signed by: Ruddy Rey MD on 12/30/2024 18:08:40
--- OUTSIDE RECORDS SUMMARY | 2024-12-29 08:53 | XMS_ITS ---
Author Organization [facility] Address [address] [place] [address] Care Team Providers Care Roentgenologist Name Role Phone Braydon Cortes MD Primary Care Provider Gabino Lopez [phone] REASON FOR VISIT BUY Colig 10 Encounters Encounter Location Date Provider Diagnosis [facility] [address] [place] [address] 05/28/2024 Gabino Martins Plan Of Treatment No Information Progress Notes * ANDREAS Alanna EDOB: [birth year] (44 yo F)Acc No.[id number]:05/28/2024 Patient:?JohnsBarbaraAlanna E :1980???Age:44 Y???Sex:Female Address:[address] [place], [address] * true * Date:? Generated for Printi ng/Faxing/eTransmitting on:?12/29/2024 08:53 AM EDT
--- OUTSIDE RECORDS SUMMARY | 2024-12-29 08:54 | XMS_ITS | Patient Health Record ---
Author Organization [facility] Address [address] [place] [address] Care Team Providers Care Corporate Tax Preparer Name Role Phone Braydon Cortes MD Primary Care Provider Gabino Lopez Unavailable [phone] Allergies No Known Allergies Reason For Referral [...] Status Risk Notes Problem Acquired hallux valgus (72717787) Hallux valgus (acquired), left foot (M20.12) Active confirmed Problem Acquired hallux valgus (46645664) Hallux valgus (acquired), right foot (M20.11) Active confirmed Encounters Encounter Location Date Provider Diagnosis [facility] [address] [place] [address] 05/28/2024 Gabino Martins Plan Of Treatment Pending Test Test Name Order Date X ray : Foot, left 3V 04/22/2019 X ray : Foot, right 3V 04/22/2019 Insurance Providers Payer Name Payer Address Payer Phone Subscriber Number Group Number Insured Name Patient Relationship to Insured Coverage Start Date Coverage End Date [facility] [address] [facility] [place] [address] [phone] [id number] Alanna Johns Self - patient is the insured Medical (General) History Medical History History ICD Code Chicken pox Headaches/Migraines Psoriasis/eczema High Cholesterol HPV cervical dysplasia Surgical History Surgery Date(Month/Year) adenoidectomy 1982
--- OUTSIDE RECORDS SUMMARY | 2024-12-29 08:54 | XMS_ITS | Data Portability ---
Author Organization [place] - [facility], [facility] Address [address] [place] [address] Care Team Providers Care Corrections Counselor Name Role Phone JUDY SHAW Primary Care [...] which point the tube should have extruded. [email or web address] Not available 10/13/2024 11:54:21 Plan of Treatment Reminders Order Date Submit Date Provider Last Modified By Organization Details Last Modified Time Details Appointments Establish ed 10 2024 09:00A M CARINA PANDA MD Not available Not available Not available Lab None recorded. Referral None recorded. Procedures None recorded. Surgeries nasophary ngoscopy, surgical, with dilation of eustachia n tube; bilateral (SURG) 2023 024 [email or web address] Not available 05/12/2024 13:20:19 Imaging None recorded. [...] Time Bilateral disorder of Eustachia n tubes 74243804586 75782 Active 2023 Other specified disorders of Eustachia n tube, bilateral ; Note: Date Diagnosed : 01/30/2024 4:52 PM (H69.83) Not Available [facility] 4 02:33:14 Conductiv e hearing loss 83025125 Active 2023 Conductiv e hearing loss, unilatera l, right ear, with unrestric bruna hearing on the contralat eral side; Note: Date Diagnosed : 01/30/2024 4:52 PM (H90.11) Not Available [facility] 4 02:33:20 Dysfuncti on of eustachia n tube 29846385 Active 2023 CARINA PANDA MD [address] [place] [address],[place] [address], [place], [address] , [facility] 4 12:15:44 Conductiv e hearing loss 67881214 Active 2023 CARINA PANDA MD [address] [place] [address],[place] [address], [place], [address] , [facility] 4 12:27:10 Abnormal auditory perceptio n 22044095 Active 2024 CARINA PANDA MD [address] [facility],[place] [address], [place], [address] , [place] [facility] 11:53:28 Problem Notes None recorded. Procedures Surgical History Date Name Laterality Status Provider Name and Address Organization Details Recorded Time Air & Speech Audio with Tymps (20009, 55191 & 83463) completed LUCERO RAZA [address] [facility],[place] [address], [place], [address], [facility] - [facility] [place] 09/01/2024 10:08:28 024 NASOPHARYNGOSCOPY, SURGICAL, WITH DILATION OF EUSTACHIAN TUBE; BILATERAL (SURG) completed Philip Killian [place] - [facility] 07/03/2024 10:31:55 024 Fiberoptic Nasopharyngoscopy completed CARINA PANDA MD [address] [facility],[place] [address], [place], [address], [facility] - [facility] 05/12/2024 12:27:25 Imaging Results Imaging Date [...] Name and Address Organization Details Recorded Time 496408 kiwi fruit extract food other Not available Not available 04/03/2024 62424 01 RxNorm React ion: Unkno wn; Not Available [facility] 4 00:29:13 262440 pineapple allergeni c extract food,medi cation other Not available Not available 04/03/2024 57880 5 RxNorm React ion: Unkno wn; Not Available [facility] 4 00:29:15 Medications Name Sig Start [...] Details Last Updated DateTime 05/12/2024 162.56 cm 36107.86 g Indy Butt [place] [facility] 05/12/2024 11:46:54 Date Recorded Body height Body mass index (BMI) Body weight Provider Name and Address Organization Details Last Updated DateTime 10/13/2024 162.56 cm 25.7 kg/m2 99530.86 g Isabel Barrett [place] [facility] 10/13/2024 11:28:16 Social History None recorded. Functional Status None recorded. Mental Status None recorded. Family History Nothing Reported. Medical History Condition Response High Cholesterol Y Gynecological HistoryNo gynecological history recorded. Obstetrics History GPAL:G 0 P 0 0 0 0 Past Encounters Encounter ID Performer Location Encounter Start Date Encounter Closed Date Diagnosis/Indication Diagnosis SNOMED-CT Code Diagnosis ICD10 Code Diagnosis Note [id number] CARINA PANDA MD [facility] [address] [address] 05/12/2024 11:22:11 05/12/2024 12:27:19 Dysfunction of eustachian tube 04086656 H69.93 Patient has signs of symptoms of [...] is good three year data showing the long-term success as well. We discussed the risks [...] with the contact informatio n for my surgical technician. We will begin the scheduling process and see the patient back at the time of surgery. Patient {{will mariaelena l not*}} require medical clearance from their primary care provider preoperati nabila. Conductive hearing loss 64688206 H90.11 Patient does have mild right-side d conductive hearing loss which may represent early otoscleros is. Not enough hearing loss to warrant considerat ion of amplificat ion or surgical interventi on. Would recommend audiometri c testing next year. [id number] RENEE GARCIA MD [facility] [address] [address] 09/01/2024 09:50:13 09/01/2024 10:37:44 Bilateral disorder of Eustachian tubes 6751974931 237561 H69.83 Right Ear:Normal hearing with slight conductive overlay with excellent speech discrimina tion.Paten t tube.Left Ear:Normal hearing with excellent speech discrimina tion.Paten t tube. Conductive hearing loss 89331812 H90.11 [id number] CARINA PANDA MD [facility] [address] [address] 10/13/2024 11:13:52 10/13/2024 11:54:10 Bilateral disorder of Eustachian tubes 0265538627 501357 H69.83 Abnormal a uditory perception 83908317 H93.299 Health Concerns Section Related Observation LastModified by Organization Detai ls LastModified Time None Recorded Concern Status LastModified by Organization Details LastModified Time None Recorded Advance Directives Directive None Recorded Payers Encounter Date Sequence Insurance Name Policy Number Policy Davis Covered Member ID Davis Member ID Guarantor Name 05/12/2024 1 [place] [id number] Kalia Suh [id number] 11 Alanna Johns 09/01/2024 1 [place] [id number] Kalia Vikash [id number] 11 Alanna Johns 10/13/2024 1 [place] [id number] Kalia Vikash [id number] 11 Alanna Johns Notes Date Note Type [...] and had ocular reaction. CARINA PANDA MD [address] [place] [address], [place], [address], [facility] - [facility] 05/12/2024 12:28:43 09/01/2024 text/html 44-year-old ann [...] to tolerate Flonase. RENEE GARCIA MD [address] [facility],[address], [address], [facility] - [facility] 09/01/2024 17:30:58 10/13/2024 text/html Patient is [...] not the left. CARINA PANDA MD [address] [facility],[place] [address], [place], [address], [place] - [facility] 10/13/2024 11:54:55 OBGyn Episode No OBEpisode recorded.
== END 2024-12-28 08:34 | disposition home or self-care (01) ==
LOC: HO.HOSX 08:33
PROVIDERS: Visit Provider Physician Assistant
DX: S82.202D Unspecified fracture of shaft of left tibia, subsequent encounter for closed fracture with routine healing (principal); S82.402D Unspecified fracture of shaft of left fibula, subsequent encounter for closed fracture with routine healing; Z98.890 Other specified postprocedural states
CPT/HCPCS: 73590

== ENCOUNTER 2024-12-28 10:54 | Outpatient (AMB) | payer BC, SELFPAY ==
--- NOTE | 2024-12-28 10:59 | A.OFFVIS_ITS ---
Vital Signs 12/28/24 11:09 Height 5 ft 4 in Weight 152 lb BMI 26.1 Intake Visit Reasons: PO-s/p left tibial ORIF on 12/11/24 with NE Intake Note: Alanna is a 44 year old female who presents today for a post operative visit s/p left tibial ORIF on 12/11/24 with NE. Patient reports that she feels that she has regressed a bit since 12/22 after a splint change. She explains that she has having significant increase in her neuropathy. She has minor concern for DVT due to pain in the medial aspect of the calf. Currently she is taking Lyrica 50 mg BID & Lyrica 200. Tylenol 1000mg PRN Allergies kiwi Allergy (Unknown, Verified 12/28/24 11:00) Unknown pineapple Allergy (Unknown, Verified 12/28/24 11:00) Unknown fluticasone [From Flonase] Allergy (Verified 12/28/24 11:00) Eye Swelling HPI HPI PO-s/p left tibial ORIF on 12/11/24 with NE: Details: Two and half weeks status post tibial ORIF. She feels better today. The splint was bothering her. She states there is some numbness over her 1st [address] [facility] Medical History (Updated 12/23/24 @ 00:03 by Background Lucy) Fracture of tibia and fibula Eustachian tube dysfunction Insomnia GERD (gastroesophageal reflux disease) Anxiety HLD (hyperlipidemia) Palpitations Cerebral aneurysm Surgical History (Updated 12/23/24 @ 00:03 by Background Daemon) H/O adenoidectomy (~1981) Social History Household Members: Spouse Housing: House Do you presently have visiting nurse or other home services: No Patient Tobacco Use Status: Never used Tobacco Second Hand Smoke Exposure: No Advance Directives Date on File: 12/11/24 service: No Physical Exam Vital Signs: BMI result Body Mass Index 26.1 Extrem Other: Incisions clean dry and intact 2+ dorsalis pedis pulse Diminished sensation over the 1st dorsal webspace Firing EHL/tib ant/gastroc Results Reviewed Results Reviewed: I personally reviewed relevant radiographs. Fracture alignment is unchanged from prior. No hardware complications Assessment & Plan Assessment & Plan (1) Status post open reduction and internal fixation (ORIF) of fracture: Code(s): Z98.890 - Other specified postprocedural states; Z87.81 - Personal history of (healed) traumatic fracture Category: Surgical Plan: Doing well status post ORIF. Some mildly diminished sensation in distribution of the deep peroneal nerve without motor changes. Nonweightbearing and working on dorsiflexion. Follow up in 4 weeks. Orders: Orders XR tibia fibula LT 2V Today S82.209A - Unspecified fracture of shaft of unspecified tibia, initial encounter for closed fracture, S82.409A - Unspecified fracture of shaft of unspecified fibula, initial encounter for closed fracture, Z87.81 - Personal history of (healed) traumatic fracture, Z98.890 - Other specified postprocedural states Coding Level of Care Code Global (21033) Diagnoses Status post open reduction and internal fixation (ORIF) of fracture Z98.890; Z87.81
[2024-12-28 11:09] VITALS: BMI 26.1
--- OUTSIDE RECORDS SUMMARY | 2024-12-28 13:06 | XMS_ITS ---
Author Organization [facility] Address [address] [place] [address] Care Team Providers Care Manager Market Name Role Phone Braydon Cortes MD Primary Care Provider Gabino Lopez [phone] REASON FOR VISIT BUY Colig 10 Encounters Encounter Location Date Provider Diagnosis [facility] [address] [place] [address] 05/28/2024 Gabino Martins Plan Of Treatment No Information Progress Notes * ANDREAS Alanna EDOB: [birth year] (44 yo F)Acc No.[id number]:05/28/2024 Patient:?JohnsBarbaraAlanna E :1980???Age:44 Y???Sex:Female Address:[address] [place], [address] * true * Date:? Generated for Printi ng/Faxing/eTransmitting on:?12/28/2024 01:06 PM EDT
--- OUTSIDE RECORDS SUMMARY | 2024-12-28 13:06 | XMS_ITS | Patient Health Record ---
Author Organization [facility] Address [address] [place] [address] Care Team Providers Care Promotions Representative Name Role Phone Braydon Cortes MD Primary Care Provider Gabino Lopez Unavailable [phone] Allergies No Known Allergies Reason For Referral [...] Status Risk Notes Problem Acquired hallux valgus (50558795) Hallux valgus (acquired), left foot (M20.12) Active confirmed Problem Acquired hallux valgus (69876455) Hallux valgus (acquired), right foot (M20.11) Active confirmed Encounters Encounter Location Date Provider Diagnosis [facility] [address] [place] [address] 05/28/2024 Gabino Martins Plan Of Treatment Pending Test Test Name Order Date X ray : Foot, left 3V 04/22/2019 X ray : Foot, right 3V 04/22/2019 Insurance Providers Payer Name Payer Address Payer Phone Subscriber Number Group Number Insured Name Patient Relationship to Insured Coverage Start Date Coverage End Date [facility] [address] [facility] [place] [address] [phone] [id number] Alanna Johns Self - patient is the insured Medical (General) History Medical History History ICD Code Chicken pox Headaches/Migraines Psoriasis/eczema High Cholesterol HPV cervical dysplasia Surgical History Surgery Date(Month/Year) adenoidectomy 1982
== END 2024-12-28 12:28 | disposition home or self-care (01) ==
LOC: HO.HOS 10:54
PROVIDERS: PCP Internal Medicine; Visit Provider Physician Assistant
DX: Z98.890 Other specified postprocedural states (principal); Z87.81 Personal history of (healed) traumatic fracture
CPT/HCPCS: 99024

== ENCOUNTER → 2024-12-28 10:58 | Outpatient (BNV) | payer BC, SELFPAY | PROVIDERS: Visit Provider Radiology Diagnostic Radiology | DX: S82.202A Unspecified fracture of shaft of left tibia, initial encounter for closed fracture (principal); S82.402A Unspecified fracture of shaft of left fibula, initial encounter for closed fracture | CPT/HCPCS: 73590 ==

== ENCOUNTER 2025-01-28 12:18 | Outpatient (REF) | payer BC, SELFPAY ==
--- NOTE | ~2025-01-28 | XR_ITS ---
EXAMINATION: XR TIBIA FIBULA 2 VIEWS LEFT HISTORY: Z98.890 - Other specified postprocedural states COMPARISON: Comparison is made with the prior examination dated 12/28/2024. FINDINGS: AP and lateral views of the left tibia and fibula are submitted. Osseous mineralization is normal. The patient is again noted to be status post internal fixation of a fracture of the distal tibia with a sideplate and multiple orthopedic screws. The fracture lines remain visible. A mildly displaced fracture of the distal fibula is unchanged in appearance. The visualized knee and ankle joint spaces are preserved. The soft tissues are unremarkable. XR/XR tibia fibula LT 2V IMPRESSION: Internal fixation of a fracture of the distal fibula without change. Mildly displaced distal fibular fracture without change. Electronically signed by: Zachery Saldivar MD 01/28/2025 01:54 PM EDT
--- OUTSIDE RECORDS SUMMARY | 2025-01-28 12:19 | XMS_ITS | Patient Health Record ---
Author Organization [facility] Address [address] [place] [address] Care Team Providers Care Dock Loader Name Role Phone Braydon Cortes MD Primary [...] 100 MG as directed Orally 11/05/2022 Active Custar 3 1000 MG 1 capsule Orally Onc [...] point) Points 1 Interpretation Negative Section Notes: placement manager for Dr. Willie Johns Problems Problem Type SNOMED Code ICD Code Onset Dates Problem Status W/U Status Risk Notes Problem 73479433 Rectal bleeding (K62.5) Active confirmed Plan Of Treatment Future Test Test Name Order Date COLONOSCOPY 11/05/2022 Insurance Providers Payer Name Payer Address Payer Phone Subscriber Number Group Number Insured Name Patient Relationship to Insured Coverage Start Date Coverage End Date [facility] [address] [place] [phone] [id number] MORE JOHNS Self - patient is the insured Medical (General) History Medical History History ICD Code Small cerebral aneurysm Palpitations with negative cardiac vasquez p including echo and stress test Elevated cholesterol breast screening program Anxiety Gastroesophageal reflux disease Insomnia Surgical History Surgery Date(Month/Year) Adenoidectomy 1982 Hospitalization History Reason Date(Month/Year) Tonsillitis 2002
== END 2025-01-28 12:19 | disposition home or self-care (01) ==
LOC: HO.HOSX 12:18
PROVIDERS: Visit Provider Orthopaedic Surgery
DX: Z98.890 Other specified postprocedural states (principal); Z87.81 Personal history of (healed) traumatic fracture
CPT/HCPCS: 73590

== ENCOUNTER 2025-01-28 12:34 | Outpatient (AMB) | payer BC, SELFPAY ==
[2025-01-28 12:56] VITALS: BMI 26.1
--- NOTE | 2025-01-28 12:56 | MHC.OFFVIS ---
Vital Signs 01/28/25 12:56 Height 5 ft 4 in Weight 152 lb BMI 26.1 Intake Visit Reasons: PO-s/p left tibial ORIF on 12/11/24 with NE Intake Note: Alanna is a 44 year old female who presents today for a post operative visit about one month s/p left tibial ORIF on 12/11/24 with NE. Cast off and XR updated today in office. States she continues to have pain, she is doing dressing changes every 2 days. Allergies kiwi Allergy (Unknown, Verified 01/28/25 12:57) Unknown pineapple Allergy (Unknown, Verified 01/28/25 12:57) Unknown fluticasone [From Flonase] Allergy (Verified 01/28/25 12:57) Eye Swelling HPI HPI PO-s/p left tibial ORIF on 12/11/24 with NE: Details: Alanna is now 6 weeks status post ORIF left tibia. She is doing well. She has no complaints other than some numbness over the dorsum of her foot which she noticed after the splint was applied. She did not notice this immediately after the surgery. She states her pain is tolerable. She has been taking Lyrica at night he wishes helpful. [facility] Medical History (Updated 12/23/24 @ 00:03 by Arcenio Ayala) Fracture of tibia and fibula Eustachian tube dysfunction Insomnia GERD (gastroesophageal reflux disease) Anxiety HLD (hyperlipidemia) Palpitations Cerebral aneurysm Surgical History H/O adenoidectomy (~1981) Social History Household Members: Spouse Housing: House Do you presently have visiting nurse or other home services: No Patient Tobacco Use Status: Never used Tobacco Second Hand Smoke Exposure: No Advance Directives Date on File: 12/11/24 service: No Physical Exam Vital Signs: BMI result Body Mass Index 26.1 Extrem Other: Diminished sensation over the dorsum of the foot with intact motor function. Dorsalis pedis 2+. No skin changes. Incisions are clean dry and intact. Tibial alignment is anatomic. Results Reviewed Results Reviewed: I personally reviewed relevant radiographs. IMPRESSION: Internal fixation of a fracture of the distal fibula without change. Mildly displaced distal fibular fracture without change. Assessment & Plan Assessment & Plan (1) Status post open reduction and internal fixation (ORIF) of fracture: Code(s): Z98.890 - Other specified postprocedural states; Z87.81 - Personal history of (healed) traumatic fracture Category: Surgical Plan: Alanna is doing well. She does have some mild dorsal foot numbness unknown etiology and I am prescribing her Lyrica for this. This is helpful for her. Her incisions look good and I recommend she abstain from weight-bearing. She will follow up to see me in 6 weeks. I reviewed her radiographs with her. I instructed her on some home exercise program. She has a boot and we will work on stretching and range of motion of the ankle. Orders: Orders XR tibia fibula LT 2V 01/28/25 Z87.81 - Personal history of (healed) traumatic fracture, Z98.890 - Other specified postprocedural states Medications: Changed From pregabalin 150 mg PO BEDTIME 8 days 8 caps 0RF To pregabalin 150 mg PO BID 60 caps 2RF Coding Level of Care Code Global (64929) Diagnoses Status post open reduction and internal fixation (ORIF) of fracture Z98.890; Z87.81
== END 2025-01-28 13:14 | disposition home or self-care (01) ==
LOC: HO.HOS 12:35
PROVIDERS: PCP Internal Medicine; Visit Provider Orthopaedic Surgery
DX: Z98.890 Other specified postprocedural states (principal); Z87.81 Personal history of (healed) traumatic fracture
CPT/HCPCS: 99024

== ENCOUNTER → 2025-01-28 12:40 | Outpatient (BNV) | payer BC, SELFPAY | PROVIDERS: Visit Provider Radiology Diagnostic Radiology | DX: Z98.890 Other specified postprocedural states (principal) | CPT/HCPCS: 73590 ==

== ENCOUNTER 2025-02-03 12:02 | Outpatient (REF) | payer BC, SELFPAY ==
[2025-02-03 13:48] LABS: Alanine Aminotransferase 24 U/L (0-31); Albumin Level 4.2 g/dL (3.5-5.0); Aspartate Amino Transferase 36 U/L (5-31); Bilirubin Direct 0.1 mg/dL (0.0-0.5); Bilirubin Total 0.3 mg/dL (0.0-1.0); Total Protein 7.8 g/dL (6.5-8.0)
[2025-02-03 13:56] LABS: Alkaline Phosphatase 94 U/L (39-117)
== END 2025-02-03 12:03 | disposition home or self-care (01) ==
LOC: HO.10HDL 12:02
PROVIDERS: Visit Provider Nurse Practitioner Adult Health
DX: N95.1 Menopausal and female climacteric states (principal)
CPT/HCPCS: 36415; 80076

== ENCOUNTER 2025-02-22 08:38 | Outpatient (REF) | payer BC, SELFPAY ==
--- NOTE | ~2025-02-22 | XR_ITS ---
CLINICAL HISTORY: Z98.890 - Other specified postprocedural states Radiographs of the left tibia/fibula, 2 views Comparison: DX - XR TIBIA FIBULA LT 2V - 12/28/24 10:58 EDT CR - XR ANKLE LT MIN 3V - 12/10/24 21:20 EDT Findings: Status post open reduction internal fixation of the distal tibia with a sideplate and screws. The sideplate extends to the mid tibial diaphysis and overlies medial malleolus. The hardware is intact. There is anatomic alignment. Interval development of osseous bridging in the distal tibial diaphysis, indicating healing. There is a fracture of the distal fibular metadiaphysis with comminution. The fracture lines are still evident. There is no displacement currently. On the prior study displacement measured up to 3 mm. There is questionable callus formation. No dislocation. No degenerative change. Bone mineralization is decreased. Soft tissue swelling. Impression: Status post open reduction internal fixation of the distal tibia. Intact hardware. Interval development of callus formation of the tibial fracture indicating healing. Question healing of the fracture of the distal fibula. This document has been electronically signed by: Denise Flores MD on 02/23/2025 15:17:06
--- OUTSIDE RECORDS SUMMARY | 2025-02-22 08:55 | XMS_ITS | Patient Health Record ---
Author Organization [facility] Address [address] [place] [address] Care Team Providers Care Bogger Operator Name Role Phone Braydon Cortes MD Primary Care Provider Denton Rios Jr Unavailable [phone] Allergies Allergen (clinical drug ingredient) Drug/Non Drug [...] 100 MG as directed Orally 11/05/2022 Active Wheatley 3 1000 MG 1 capsule Orally Onc [...] point) Points 1 Interpretation Negative Section Notes: mall manager for Dr. Willie Johns Problems Problem Type SNOMED Code ICD Code Onset Dates Problem Status W/U Status Risk Notes Problem 47120691 Rectal bleeding (K62.5) Active confirmed Plan Of Treatment Future Test Test Name Order Date COLONOSCOPY 11/05/2022 Insurance Providers Payer Name Payer Address Payer Phone Subscriber Number Group Number Insured Name Patient Relationship to Insured Coverage Start Date Coverage End Date [facility] [address] [place] [phone] [id number] MORE JOHNS Self - patient is the insured Medical (General) History Medical History History ICD Code Small cerebral aneurysm Palpitations with negative cardiac vasquez p including echo and stress test Elevated cholesterol breast screening program Anxiety Gastroesophageal reflux disease Insomnia Surgical History Surgery Date(Month/Year) Adenoidectomy 1982 Hospitalization History Reason Date(Month/Year) Tonsillitis 2002
== END 2025-02-22 08:39 | disposition home or self-care (01) ==
LOC: HO.HOSX 08:38
PROVIDERS: Visit Provider Orthopaedic Surgery
DX: Z09 Encounter for follow-up examination after completed treatment for conditions other than malignant neoplasm (principal); S82.202A Unspecified fracture of shaft of left tibia, initial encounter for closed fracture; X58.XXXA Exposure to other specified factors, initial encounter; Y93.9 Activity, unspecified; Y92.9 Unspecified place or not applicable; Y99.9 Unspecified external cause status; Z98.890 Other specified postprocedural states; Z87.81 Personal history of (healed) traumatic fracture
CPT/HCPCS: 73590

== ENCOUNTER 2025-02-22 09:52 | Outpatient (AMB) | payer BC, SELFPAY ==
[2025-02-22 10:04] VITALS: BMI 26.1
--- NOTE | 2025-02-22 10:04 | A.OFFVIS_ITS ---
Vital Signs 02/22/25 10:04 Height 5 ft 4 in Weight 152 lb BMI 26.1 Intake Visit Reasons: PO-s/p left tibial ORIF on 12/11/24 with NE Intake Note: Alanna is a 44 year old female who presents today for a post operative visit about fount months s/p left tibial ORIF on 12/11/24. At her last visit she was given an Rx for Lyrica due to dorsal foot numbness. She was instructed to continue use of the boot and to work on ankle ROM, but to remain non-weight bearing. Patient reports that she has been in pain for the past two weeks, constant numbness and tingling. She noted that elevating her ankle helps relieve the pain. Allergies kiwi Allergy (Unknown, Verified 02/22/25 10:08) Unknown pineapple Allergy (Unknown, Verified 02/22/25 10:08) Unknown fluticasone (From Flonase) Allergy (Verified 02/22/25 10:08) Eye Swelling HPI HPI PO-s/p left tibial ORIF on 12/11/24 with NE: Details: Alanna is a 44 year old female who presents today for a post operative visit about fount months s/p left tibial ORIF on 12/11/24. At her last visit she was g iven an Rx for Lyrica due to dorsal foot numbness. She was instructed to continue use of the boot and to work on ankle ROM, but to remain non-weight bearing. Patient reports that she has been in pain for the past two weeks with foot numbness and tingling. She noted that elevating her ankle helps relieve the pain. [facility] Medical History (Updated 02/22/25 @ 10:41 by Kel Burgos MD) Fracture of tibia and fibula Eustachian tube dysfunction Insomnia GERD (gastroesophageal reflux disease) Anxiety HLD (hyperlipidemia) Palpitations Cerebral aneurysm Surgical History H/O adenoidectomy (~1981) Social History Household Members: Spouse Housing: House Do you presently have visiting nurse or other home services: No Patient Tobacco Use Status: Never used Tobacco Second Hand Smoke Exposure: No Advance Directives Date on File: 12/11/24 service: No Physical Exam Vital Signs: BMI result Body Mass Index 26.1 Extrem Other: Tibial alignment anatomic. Incisions well healed. No swelling or ankle effusion. She has diminished sensation over the dorsum of her left foot with no skin changes and intact motor function. Results Reviewed Results Reviewed: I personally reviewed relevant radiographs. There is healing and near anatomic alignment of the left tibia with no hardware complications and hardware alignment unchanged prior. Healing fibulr shaft fracture Assessment & Plan Assessment & Plan (1) Status post open reduction and internal fixation (ORIF) of fracture: Code(s): Z98.890 - Other specified postprocedural states; Z87.81 - Personal history of (healed) traumatic fracture Category: Surgical Plan: Outpatient PT may progress weight-bearing as tolerated 25% a week for the next 4 weeks. (2) Tibia fracture: Code(s): S82.209A - Unspecified fracture of shaft of unspecified tibia, initial encounter for closed fracture Category: Medical Plan: Follow up 8 weeks Plan Continue Physical Therapy, Okay to have massage therapy. follow up 6 weeks Orders: Orders XR tibia fibula LT 2V Today Z87.81 - Personal history of (healed) traumatic fracture, Z98.890 - Other specified postprocedural states PT Evaluation and Treatment Today S82.209A - Unspecified fracture of shaft of unspecified tibia, initial encounter for closed fracture, Z87.81 - Personal history of (healed) traumatic fracture, Z98.890 - Other specified postprocedural states Coding Level of Care Code Global (30155) Diagnoses Status post open reduction and internal fixation (ORIF) of fracture Z98.890; Z87.81 Tibia fracture S82.209A
== END 2025-02-22 15:20 | disposition home or self-care (01) ==
LOC: HO.HOS 09:53
PROVIDERS: Visit Provider Orthopaedic Surgery
DX: Z98.890 Other specified postprocedural states (principal); Z87.81 Personal history of (healed) traumatic fracture; S82.209A Unspecified fracture of shaft of unspecified tibia, initial encounter for closed fracture
CPT/HCPCS: 99024

== ENCOUNTER → 2025-02-22 09:54 | Outpatient (BNV) | payer BC, SELFPAY | PROVIDERS: Visit Provider Radiology Diagnostic Radiology | DX: S82.302D Unspecified fracture of lower end of left tibia, subsequent encounter for closed fracture with routine healing (principal) | CPT/HCPCS: 73590 ==

== ENCOUNTER 2025-04-08 07:41 | Outpatient (REF) | payer BC, SELFPAY ==
--- NOTE | ~2025-04-08 | XR_ITS ---
EXAMINATION: XR TIBIA FIBULA 2 VIEWS LEFT HISTORY: S82.209A - Unspecified fracture of shaft of unspecified tibia, initial e... COMPARISON: Comparison is made with the prior examination dated 02/22/2025. FINDINGS: AP and lateral views of the left tibia and fibula are submitted. Osseous mineralization is normal. Again seen is internal fixation of a fracture of the distal tibia with a sideplate and multiple orthopedic screws. The fracture line remains visible. A minimally displaced fracture of the distal fibula is also unchanged. The visualized knee and ankle joint spaces are preserved. The soft tissues are unremarkable. XR/XR tibia fibula LT 2V IMPRESSION: Internally fixed fracture of the distal tibia without change. Minimally displaced distal fibular fracture without change. Electronically signed by: Zachery Saldivar MD 04/08/2025 08:40 AM EDT
--- OUTSIDE RECORDS SUMMARY | 2025-04-08 07:43 | XMS_ITS | Patient Health Record ---
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 Willie Johns Problems Problem Type SNOMED Code ICD Code Onset Dates Problem Status W/U Status Risk Notes Problem [id number] Rectal bleeding (K62.5) Active confirmed Plan Of Treatment Future Test Test Name Order Date COLONOSCOPY 11/05/2022 Insurance Providers Payer Name Payer Address Payer Phone Subscriber Number Group Number Insured Name Patient Relationship to Insured Coverage Start Date Coverage End Date [facility] [address] [facility] [place] [phone] [id number] MORE JOHNS Self - patient is the insured Medical (General) History Medical History History ICD Code Small cerebral aneurysm Palpitations with negative cardiac vasqeuz p including echo and stress test Elevated cholesterol breast screening program Anxiety Gastroesophageal reflux disease Insomnia Surgical History Surgery Date(Month/Year) Adenoidectomy 1981 Hospitalization History Reason Date(Month/Year) Tonsillitis 2002
--- OUTSIDE RECORDS SUMMARY | 2025-04-08 07:44 | XMS_ITS | Patient Health Record ---
Author Organization [facility] Address [address] [place] [address] Care Team Providers Care Account Financial Manager Name Role Phone Braydon Cortes MD Primary Care Provider Gabino Lopez Unavailable [phone] Allergies No Known Allergies Reason For Referral No Information Medications Medication SIG (Take, Route, Frequency, Duration) Notes Start Date End Date Status Custom Orthotics as directed 04/22/2019 Not-Taking Physical Therapy . . . 2-3x/week; Duration: 3-4 weeks 04/22/2019 Active Multivitamin Active Night Splint [...] Status Risk Notes Problem Acquired hallux valgus (59451498) Hallux valgus (acquired), left foot (M20.12) Active confirmed Problem Acquired hallux valgus (15092609) Hallux valgus (acquired), right foot (M20.11) Active confirmed Encounters Encounter Location Date Provider Diagnosis [facility] [address] [place] [address] 05/28/2024 Gabino Martins Plan Of Treatment Pending Test Test Name Order Date X ray : Foot, left 3V 04/22/2019 X ray : Foot, right 3V 04/22/2019 Insurance Providers Payer Name Payer Address Payer Phone Subscriber Number Group Number Insured Name Patient Relationship to Insured Coverage Start Date Coverage End Date [facility] [address] [place] [address] [phone] [id number] Alanna Johns Self - patient is the insured Medical (General) History Medical History History ICD Code Chicken pox Headaches/Migraines Psoriasis/eczema High Cholesterol HPV cervical dysplasia Surgical History Surgery Date(Month/Year) adenoidectomy 1981
== END 2025-04-08 07:42 | disposition home or self-care (01) ==
LOC: HO.HOSX 07:41
PROVIDERS: Visit Provider Orthopaedic Surgery
DX: S82.302D Unspecified fracture of lower end of left tibia, subsequent encounter for closed fracture with routine healing (principal); S82.832D Other fracture of upper and lower end of left fibula, subsequent encounter for closed fracture with routine healing; Z98.890 Other specified postprocedural states; X58.XXXD Exposure to other specified factors, subsequent encounter
CPT/HCPCS: 73590

== ENCOUNTER 2025-04-08 08:23 | Outpatient (AMB) | payer BC, SELFPAY ==
[2025-04-08 08:36] VITALS: BMI 26.1
--- NOTE | 2025-04-08 08:36 | MHC.OFFVIS ---
Vital Signs 04/08/25 08:36 Height 5 ft 4 in Weight 152 lb BMI 26.1 Intake Visit Reasons: OV-s/p left tibial ORIF on 12/11/24 with NE Intake Note: Alanna is a 44 year old female who presents today for a follow up s/p eft tibial ORIF on 12/11/24. At her last visit she was instructed to work with Phyical therapy on increasing weight bearing status. Patient reports that she is improving, continued pain/soreness. Continues to work with PT which is progressing slowly, she is able to easily do 50%WB and has difficulty with 75% weight bearing and cannot yet fully weight bear. There is some continued numbness at the top of the foot, this is improving and she continues to work on desensitization. At this time she is sleeping with out the boot, while sleeping she feels that the tendon on the lateral aspect of the ankle is tightening up and she needs to do ankle pumps to resolve this which is quite painful. Allergies kiwi Allergy (Unknown, Verified 04/08/25 08:42) Unknown pineapple Allergy (Unknown, Verified 04/08/25 08:42) Unknown fluticasone (From Flonase) Allergy (Verified 04/08/25 08:42) Eye Swelling HPI HPI OV-s/p left tibial ORIF on 12/11/24 with NE: Details: Palak is 44-year-old who had a ORIF of her left tibia 4 months ago. She is beginning to ambulate at about 50% capacity with the boot. She states she is doing better than she has been but still with the pain and some numbness over the dorsal webspace of her left foot. [facility] Medical History (Updated 02/22/25 @ 10:41 by Kel Burgos MD) Fracture of tibia and fibula Eustachian tube dysfunction Insomnia GERD (gastroesophageal reflux disease) Anxiety HLD (hyperlipidemia) Palpitations Cerebral aneurysm Surgical History H/O adenoidectomy (~1981) Social History Household Members: Spouse Housing: House Do you presently have visiting nurse or other home services: No Patient Tobacco Use Status: Never used Tobacco Second Hand Smoke Exposure: No Advance Directives Date on File: 12/11/24 service: No Physical Exam Vital Signs: BMI result Body Mass Index 26.1 Extrem Other: On exam she has full range of motion of her knee. Her ankle has 0-20 degrees of dorsiflexion. She has well-healed incisions and can walk on her foot with crutches. There is some diminished sensation over the 1st webspace of the ipsilateral foot. Results Reviewed Results Reviewed: I personally reviewed relevant radiographs. Healing left tibia and fibula fracture. Hardware in position unchanged from prior. No hardware complications. Assessment & Plan Assessment & Plan (1) Status post open reduction and internal fixation (ORIF) of fracture: Code(s): Z98.890 - Other specified postprocedural states; Z87.81 - Personal history of (healed) traumatic fracture Category: Surgical Plan: Status post ORIF of her left tibia. She is doing well. There is evidence of healing. She continues to be unable to ambulate comfortably and and I recommend that she continue to progress toward full weight-bearing without a boot. She is undergoing physical therapy and improving regularly. There is a numbness over the dorsum of the foot which hopefully we will continue to improve. I will see her back in 3 months' time. Orders: Orders XR tibia fibula LT 2V Today S82.209A - Unspecified fracture of shaft of unspecified tibia, initial encounter for closed fracture Coding Level of Care Code Est Pt Level 3 (62873) Diagnoses Status post open reduction and internal fixation (ORIF) of fracture Z98.890; Z87.81
== END 2025-04-08 09:13 | disposition home or self-care (01) ==
LOC: HO.HOS 08:24
PROVIDERS: Visit Provider Orthopaedic Surgery
DX: Z47.89 Encounter for other orthopedic aftercare (principal); Z87.81 Personal history of (healed) traumatic fracture
CPT/HCPCS: 99213

== ENCOUNTER → 2025-04-08 08:26 | Outpatient (BNV) | payer BC, SELFPAY | PROVIDERS: Visit Provider Radiology Diagnostic Radiology | DX: S82.302G Unspecified fracture of lower end of left tibia, subsequent encounter for closed fracture with delayed healing (principal) | CPT/HCPCS: 73590 ==

== ENCOUNTER 2025-06-10 08:04 | Outpatient (REF) | payer BC, SELFPAY ==
--- NOTE | ~2025-06-10 | XR_ITS ---
EXAMINATION: XR TIBIA AND FIBULA, LEFT CLINICAL INFORMATION: Fixated fracture of shaft of tibia. COMPARISON: 04/08/2025, 02/22/2025. 01/28/2025. TECHNIQUE: AP and lateral views of the left tibia and fibula were obtained. FINDINGS: Again seen is internal fixation of a fracture of the distal tibia with a sideplate and multiple orthopedic screws. Hardware appears intact and well seated. No complication evident. A minimally displaced fracture of the distal fibula is also noted, unchanged in alignment. There is bridging bony callus spanning the tibial fracture consistent with healing. Fracture lines are much less distinct. Fibular fracture lines are still readily visible, however sclerotic, without significant bridging bony callus evident. The visualized knee and ankle joint spaces are preserved. The soft tissues are unremarkable. XR/XR tibia fibula LT 2V IMPRESSION: 1. Internally fixated fracture of the distal tibia without significant change. There is bridging bony callus bridging the fracture gaps. No hardware complication. 2. Minimally displaced fracture of the distal fibula again noted, without bridging bony callus present, however mild sclerosis of the fracture margins suggesting early healing. Electronically signed by: Rosales Maguire MD 06/10/2025 09:03 AM EDT
== END 2025-06-10 08:05 | disposition home or self-care (01) ==
LOC: HO.HOSX 08:04
PROVIDERS: Visit Provider Orthopaedic Surgery
DX: Z98.890 Other specified postprocedural states (principal); S82.832K Other fracture of upper and lower end of left fibula, subsequent encounter for closed fracture with nonunion; X58.XXXD Exposure to other specified factors, subsequent encounter
CPT/HCPCS: 73590

== ENCOUNTER 2025-06-10 08:38 | Outpatient (AMB) | payer BC, SELFPAY ==
--- NOTE | 2025-06-10 08:42 | A.OFFVIS_ITS ---
Vital Signs 06/10/25 08:43 Height 5 ft 4 in Weight 152 lb BMI 26.1 Intake Visit Reasons: OV- left tibial ORIF on 12/11/24 NE Intake Note: Alanna is a 45 year old female who presents today for a follow up of her Left Leg about 6 months s/p Left Tibial ORIF 12/11/24. At her last visit she was instructed to continue to work towards full weight bearing status in the walking boot. She continues to work with [employer] in [employer] which is going well. She reports that her pain is improving however she comtinues to Numbness over the dorsum of the foot. Allergies kiwi Allergy (Unknown, Verified 06/10/25 08:47) Unknown pineapple Allergy (Unknown, Verified 06/10/25 08:47) Unknown fluticasone (From Flonase) Allergy (Verified 06/10/25 08:47) Eye Swelling HPI HPI OV- left tibial ORIF on 12/11/24 NE: Details: Alanna is a 45 year old female who presents today for a follow up of her Left Leg about 6 months s/p Left Tibial ORIF 12/11/24. At her last visit she was instructed to continue to work towards full weight bearing status in the walking boot. She continues to work with [employer] [facility] [employer] which is going well. She reports that her pain is improving however she continues to numbness over the dorsum of the foot. She states this was improving but now that she is walking more has returned. SHe uses one crutch still but is much better than prior. [facility] Medical History (Updated 06/10/25 @ 09:38 by Kel Burgos MD) Fracture of tibia and fibula Eustachian tube dysfunction Insomnia GERD (gastroesophageal reflux disease) Anxiety HLD (hyperlipidemia) Palpitations Cerebral aneurysm Surgical History H/O adenoidectomy (~1981) Social History Household Members: Spouse Housing: House Do you presently have visiting nurse or other home services: No Patient Tobacco Use Status: Never used Tobacco Second Hand Smoke Exposure: No Advance Directives Date on File: 12/11/24 service: No Physical Exam Exam Exam: NAD 5 deg DF and 20 deg PF minimal swelling sensation diminished over dorsum of foot Vital Signs: BMI result Body Mass Index 26.1 Results Reviewed Results Reviewed: I personally reviewed relevant radiographs. There is evidence of healing although the fracture lines are still visible especially the fibular fracture. No hardware complications Assessment & Plan Assessment & Plan (1) Status post open reduction and internal fixation (ORIF) of fracture: Code(s): Z98.890 - Other specified postprocedural states; Z87.81 - Personal history of (healed) traumatic fracture Category: Surgical Plan: Continue WBAT. COntinue PT (2) Closed fracture of fibula with nonunion: Code(s): S82.409K - Unspecified fracture of shaft of unspecified fibula, subsequent encounter for closed fracture with nonunion Category: Medical Plan: Bone stimulator ordered. Continue WBAT Orders: Orders XR tibia fibula LT 2V Today Z87.81 - Personal history of (healed) traumatic fracture, Z98.890 - Other specified postprocedural states Coding Level of Care Code Est Pt Level 3 (10337) Diagnoses Status post open reduction and internal fixation (ORIF) of fracture Z98.890; Z87.81 Closed fracture of fibula with nonunion S82.409K
[2025-06-10 08:43] VITALS: BMI 26.1
== END 2025-06-10 09:11 | disposition home or self-care (01) ==
LOC: HO.HOS 08:39
PROVIDERS: Visit Provider Orthopaedic Surgery
DX: Z47.89 Encounter for other orthopedic aftercare (principal); S82.402K Unspecified fracture of shaft of left fibula, subsequent encounter for closed fracture with nonunion; Z87.81 Personal history of (healed) traumatic fracture
CPT/HCPCS: 99213

== ENCOUNTER → 2025-06-10 08:40 | Outpatient (BNV) | payer BC, SELFPAY | PROVIDERS: Visit Provider Radiology Diagnostic Radiology | DX: S82.391D Other fracture of lower end of right tibia, subsequent encounter for closed fracture with routine healing (principal) | CPT/HCPCS: 73590 ==

== ENCOUNTER 2025-08-31 09:59 | Outpatient (REF) | payer BC, SELFPAY ==
--- OUTSIDE RECORDS SUMMARY | 2025-08-31 13:07 | XMS_ITS | Patient Health Record ---
Author Organization [facility] Address [address] [place] [address] Care Team Providers Care Biomedical Engineering Professor Name Role Phone Sophia (RETIRED) Braydon MILLER Primary Care Provide Denton Beckford Jr Unavailable Allergies Allergen (clinical drug ingredient) Drug/Non Drug Allergy documented on EMR Reaction Allergy Type Onset Date Status pineapple allergenic extract pineapple (uncoded) Unknown Allergy Active Kiwi Unknown Allergy Active Reason For Referral No Information Medications Medication SIG (Take, Route, Frequency, Duration) Notes Start Date End Date Status Magnesium 400 MG Capsule as directed Orally 2022 Active MiraLax (colon prep) 17 GM/SCOOP Powder mixed with Gatorade or Crystal Light Orally begin at 5:00 p.m. the day before the procedure; Duration: 1 day 11/05/2022 Active Atorvastatin Calcium 10 MG Tablet TAKE 1 TABLET BY MOUTH EVERY DAY AT NIGHT Oral; Duration: 90 Active Co Q 10 100 MG Capsule as directed Orally 11/06/19 23 Active [place] 3 1000 MG Capsule 1 capsule Orally Once a day; Duration: 30 day(s) 11/05/2022 Active Vitamin B Complex - Tablet as directed Orally 01/2023 Active Multi Adult Gummies - Tablet Chewable as directed Orally 11/05/2022 Active Immunizations Vaccine Route Administration Date Status Comme nts Influenza Unknown 06/19/2022 Administered Social History Tobacco Use: Social History Observation Description Date Details (start date - stop date) Never Smoker NA - NA Social History Drugs/Alcohol: Social Info Question Answer Notes Alcohol Screen Did you have a drink containing alcohol in the past year? Yes How often did you have a drink containing alcohol in the past year? Monthly or less (1 point) How many drinks did you have on a typical day when you were drinking in the past year? 1 or 2 drinks (0 point) How often did you have 6 or more drinks on one occasion in the past year? 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 Problems Problem Type SNOMED Code ICD Code Onset Dates Problem Status W/U Status Risk Notes Problem Rectal bleeding (10566542) Rectal bleeding (K62.5) Active confirmed Plan Of Treatment Future Test Test Name Order Date COLONOSCOPY 11/05/2022 Insurance Providers Payer Name Payer Address Payer Phone Subscriber Number Group Number Insured Name Patient Relationship to Insured Coverage Start Date Coverage End Date [facility] [address] [place] [phone] [id number] MORE JOHNS Self - patient is the insured Medical (General) History Medical History History ICD Code Small cerebral aneurysm Palpitations with negative cardiac vasquez p including echo and stress test Elevated cholesterol breast screening program Anxiety Gastroesophageal reflux disease Insomnia Surgical History Surgery Date(Month/Year) Adenoidectomy 1982 Hospitalization History Reason Date(Month/Year) Tonsillitis 2002
--- OUTSIDE RECORDS SUMMARY | 2025-08-31 13:07 | XMS_ITS | Clinical Summary ---
Author Organization [facility] Address [address] [place] [address] Phone Care Team Providers Care Compliance Reviewer Name Role Phone Pcp, Unknown Primary Care Provider Unavailabl e Social History Tobacco Use Types Packs/Day Years Used Date Smoking Tobacco: Never Assessed Education Answer Date Recorded Are you interested in more education? Not on nichole e 04/15/2024 Are you concerned about learning? Not on file 04/15/2024 No 04/15/2024 No 04/15/2024 Digital Access Answer Date Recorded No 04/15/2024 No 04/15/2024 Reliable internet access at home? Not on file 04/15/2024 Device with a working camera? Not on file Comments Unknown Sex and Gender Information Value Date Recorded Sex Assigned at Female 04/15/2024 3:53 PM EDT Legal Sex Female 5:13 PM EST Gender Identity Female 04/15/2024 3:53 PM EDT Sexual Orientation Bisexual 04/15/2024 3: 53 PM EDT Plan of Treatment Upcoming Encounters Date Type Department Care Team (Late st Contact Info) Description 11/22/2025 10:00 AM EDT Office Visit [facility] [address] [place] [address] Majo Mcnally MD [address] [place] [address] Health Maintenance Due Date Last Done Comments Adult Td,Tdap Booster 1979 LIPID PANEL 1979 DEPRESSION SCREENING 1991 SMOKING Hx and SMOKELESS TOB ACCO SCREENING 1992 HEPATITIS C SCREENING 1997 HIV ONE-TIME SCREENING (18-6 5 YEARS) 1997 PAP SMEAR 2000 MAMMOGRAM 2019 COLOGUARD 2024 COLONOSCOPY 2024 COLORECTAL CANCER SCREENING 2024 FIT TEST 2024 FOBT 2024 SIGMOIDOSCOPY 2024 VIRTUAL COLONOSCOPY 2024 INFLUENZA VACCINE (#1) 2025 COVID-19 VACCINE (2024-2 6 season) 2025 HEPATITIS A VACCINES Aged Out No long er eligible based on patient's age to complete this topic HIB VACCINES Aged Out No longer eligi ble based on patient's age to complete this topic MENINGOCOCCAL VACCINES (ACWY) Aged Out No longer eligible based on patient's age to complete this topic MENINGOCOCCAL VACCINES (B) Aged Out N o longer eligible based on patient's age to complete this topic PNEUMOCOCCAL VACCINES (0-49 years) Aged Out No longer eligible based on patient's age to complete this topic Medical Devices Not on file Insurance [facility] [place] [id number] PPO [place]PO [place] [address] [facility] [place] [id number] [facility] PPO EPO [place] Andrew [facility] [place] [id number] [facility] PPO EPO Care Teams Compliance Reviewer Relationship Specialty Start Date End Date Pcp, Unknown PCP - General 04/15/24 Additional Source Comments The information contained in this document represents components of the legal health record. It is not the complete legal health record.[facility]
--- OUTSIDE RECORDS SUMMARY | 2025-08-31 13:08 | XMS_ITS | Patient Health Record ---
Author Organization [facility] [place] Address [address] [place] [address] Care Team Providers Care Adult Crossing Guard Name Role Phone Braydon Cortes MD Primary Care Provider Gabino Turner Unavailable [phone] Allergies No Known Allergies Reason For Referral [...] Status Risk Notes Problem Acquired hallux valgus (57202241) Hallux valgus (acquired), left foot (M20.12) Active confirmed Problem Acquired hallux valgus (31584757) Hallux valgus (acquired), right foot (M20.11) Active confirmed Plan Of Treatment Pending Test Test Name Order Date X ray : Foot, left 3V 04/22/2019 X ray : Foot, right 3V 04/22/2019 Insurance Providers Payer Name Payer Address Payer Phone Subscriber Number Group Number Insured Name Patient Relationship to Insured Coverage Start Date Coverage End Date [facility] [address] [facility] [place] [id number] Alanna Johns Self - patient is the insured Medical (General) History Medical History History ICD Code Chicken pox Headaches/Migraines Psoriasis/eczema High Cholesterol HPV cervical dysplasia Surgical History Surgery Date(Month/Year) adenoidectomy 1982
[2025-08-31 13:42] LABS: Alanine Aminotransferase 37 U/L (0-31); Aspartate Amino Transferase 39 U/L (5-31)
== END 2025-08-31 10:00 | disposition home or self-care (01) ==
LOC: HO.10HDL 09:59
PROVIDERS: Visit Provider Nurse Practitioner Adult Health
DX: N95.1 Menopausal and female climacteric states (principal)
CPT/HCPCS: 36415; 82247; 82248; 84450; 84460